=== PATIENT | male | born 1970 | race Caucasian/White ===

== ENCOUNTER → 2018-07-04 14:58 | Outpatient (CLI) | payer BC, SELFPAY ==
--- NOTE | 2018-07-04 15:04 | VDUE_ITS ---
Reason For Study: Forearm pain Right Proximal Right jugular vein is spontaneous, widely patent, phasic, with no intraluminal echogenicity noted. Right subclavian vein is spontaneous, widely patent, phasic, with no intraluminal echogenicity noted. Right Lower Arm Right radial vein is compressible. Right ulnar vein is compressible. Right Arm Right axillary vein is spontaneous, patent, phasic, competent, compressible and demonstrates augmentation. Right brachial vein is compressible. Right cephalic vein is compressible. Right basilic vein is compressible. Patient Safety Prelim to Dr. Rivera. Interpretation Summary Deep veins of the right upper extremity are patent and compressible segmentally. There is no evidence of deep vein thrombosis. The superficial veins of the right upper extremity, the basilic and cephalic veins, are patent and compressible. There is no evidence of right upper extremity superficial thrombophlebitis involving the veins imaged. Ordering Physician: Antonio Rivera Referring Physician: Debbie Tavarez M.D. Performed By: David Smith RVT and Student ?
== END ==
PROVIDERS: Family Provider Internal Medicine; PCP Internal Medicine; Referring Provider Orthopaedic Surgery; Visit Provider Orthopaedic Surgery
DX: M79.631 Pain in right forearm (principal)
CPT/HCPCS: 93971

== ENCOUNTER → 2023-01-28 | Outpatient (CLI) | payer BC, SELFPAY ==
[2023-01-28 18:13] LABS: AST(SGOT) 39 U/L (15-37); Alanine Aminotransfer ALT/SGPT 67 U/L (16-61); Albumin, Serum 3.9 g/dL (3.2-5.0); Alkaline Phosphatase 78 U/L (45-117); Anion Gap 8 (5-15); BUN 16 mg/dL (7-18); BUN/Creat Ratio 18.4 RATIO (10-20); Chloride 105 mmol/L (98-107); Cholesterol 179 mg/dL (200); Creatinine, Serum 0.87 mg/dL (0.70-1.30); EST Glomerular Filtration Rate 99 mL/min (>60); Est Glom Filt Rate - Afr Amer 120 mL/min (>60); Glucose 91 mg/dL (74-106); High Density Lipoprotein 37 mg/dL; Protein, Total 7.9 g/dL (6.4-8.2); Sodium Level 138 mmol/L (136-145); T4 Free Direct 0.85 ng/dL (0.76-1.46); Thyroid Stim Hormone (TSH) 1.98 uIU/mL (0.358-3.74); Triglycerides 102 mg/dL; Very Low Density Lipoprotein 20 mg/dL (5-40)
[2023-01-28 19:42] LABS: Hepatitis B Surface Antibody Non-Reactive; Hepatitis C Antibody Non-Reactive (Nonreactive); Vitamin B12 434 pg/mL (211-911)
== END | disposition home or self-care (01) ==
PROVIDERS: PCP Family Medicine; Referring Provider Family Medicine; Visit Provider Family Medicine
DX: E66.9 Obesity, unspecified (principal); R79.89 Other specified abnormal findings of blood chemistry; R53.83 Other fatigue
CPT/HCPCS: 36415; 80053; 80061; 82306; 82607; 84439; 84443; 86706; 86803

== ENCOUNTER → 2024-04-06 | Outpatient (CLI) | payer OTHER, SELFPAY ==
[2024-04-06 15:46] LABS: Red Blood Cells-Urine 0 SEEN /hpf (0-5); White Blood Cells 0 SEEN /hpf (0-5)
[2024-04-06 17:50] LABS: Absolute Lymphocyte Count 1.61 X10^3/uL (0.83-4.51); Absolute Neutrophil Count 2.4 X10^3/uL (2.0-7.7); Basophil# 0.04 X10^3/uL; Basophil% 0.8 % (0-1); Eosinophil# 0.11 X10^3/uL; Eosinophils% 2.2 % (0-5); Hematocrit 43.6 % (40-54); Hemoglobin 14.8 g/dL (13.0-16.5); Lymphocyte # 1.61 X10^3/ul (0.83-4.51); Lymphocyte % 32.5 % (19-41); Mean Corp Hgb Conc 33.9 g/dL (32-36); Mean Corpuscular Hgb 30.6 pg (27.0-32.0); Mean Corpuscular Volume 90.3 fL (80-94); Mean Platelet Vol. 9.9 fl (6.2-12.0); Monocyte# 0.79 X10^3/uL; NRBC Flagged by Analyzer 0 % (0-5); Neutrophil # 2.39 X10^3/uL (2.7-7.7); Neutrophil % 48.3 % (47-70); Platelet Count 271 K/mm3 (150-450); RBC Distribution Width CV 12.7 % (11.6-14.6); RBC Distribution Width SD 41.9 fl (35.1-43.9); Red Blood Count 4.83 M/mm3 (4.6-6.2)
[2024-04-06 17:53] LABS: Color, Urine Yellow (Yellow); Glucose, Dipstick Normal (Normal); Ketone-Dipstick Negative (Negative); Leukocyte Esterase-Dipstick Negative /ul (Negative); Nitrite-Dipstick Negative (Negative); Occult Blood-Urine Negative /ul (Negative); Protein-Dipstick Negative (Negative); Urine Bilirubin Dipstick Negative (Negative); Urine Clarity Clear (Clear); Urine Urobilinogen Normal (Normal)
[2024-04-06 17:57] LABS: Vitamin D,25 Hydroxy 23.5 ng/mL
[2024-04-06 18:05] LABS: AST(SGOT) 47 U/L (15-37); Alanine Aminotransfer ALT/SGPT 79 U/L (16-61); Albumin, Serum 3.8 g/dL (3.2-5.0); Alkaline Phosphatase 58 U/L (45-117); Anion Gap 5 (5-15); BUN 16 mg/dL (7-18); BUN/Creat Ratio 16.8 RATIO (10-20); Calcium,Total 9.2 mg/dL (8.5-10.1); Chloride 107 mmol/L (98-107); Cholesterol 182 mg/dL (200); Creatinine, Serum 0.95 mg/dL (0.70-1.30); EST Glomerular Filtration Rate 88 mL/min (>60); Est Glom Filt Rate - Afr Amer 107 mL/min (>60); Globulin 3.8 g/dL (2.2-4.2); Glucose 99 mg/dL (74-106); High Density Lipoprotein 37 mg/dL; Magnesium 2.3 mg/dL (1.6-2.6); Potassium 3.9 mmol/L (3.5-5.1); Protein, Total 7.6 g/dL (6.4-8.2); Sodium Level 137 mmol/L (136-145); Triglycerides 111 mg/dL; Very Low Density Lipoprotein 22 mg/dL (5-40)
[2024-04-06 18:09] LABS: Bacteria 1+ /hpf (None Seen); Mucous, Urine 2+ /hpf (<or=2+); Squamous Epithelial Cells - UA 0-5 SEEN /hpf (0-5)
== END | disposition home or self-care (01) ==
PROVIDERS: PCP Family Medicine; Visit Provider Family Medicine
DX: K76.0 Fatty (change of) liver, not elsewhere classified (principal); E55.9 Vitamin D deficiency, unspecified
CPT/HCPCS: 36415; 80053; 80061; 81001; 82306; 83735; 85025

== ENCOUNTER 2024-07-09 05:27 | Day surgery (SDC) | payer OTHER, SELFPAY ==
[2024-07-09] VITALS (7 sets, daily range): BP systolic 98–122; BP diastolic 65–84; PULSE 66–96; RESP 16–18; TEMP 36.5–37; O2SAT 16–98; BMI 38.5
--- OUTSIDE RECORDS SUMMARY | 2024-07-09 05:30 | XMS RPT_ITS | CCD ---
Author Organization [facility] Care Team Providers Care Bmw Sales Consultant Name Role Phone Debbie Pack Unavailable Communications Equipment Operator, System Unavailable Unavailable MessengerKenia Unavailable Unavailable Andriy, Jacquie Unavailable Unavailable Unavailable Unavailable Debbie Pack DO Primary Care Provider Debbie Pack DO Primary Care Provider Debbie Pack DO Communications Equipment Operator, System Unavailable Unavailable Messenger Kenia MARIN Unavailable Unavailable Jacquie Ashraf Unavailable Unavailable Unavailable Unavailable Debbie Pack DO Primary Care Provider Debbie Pack DO Primary Care Provider DEBBIE PACK Primary Care Unavailab CARYN Nazario Referring Unavailable DEBBIE PACK Primary Care Unavailab le DEBBIE PACK Primary Care Unavailab le DEBBIE PACK Primary Care Unavailab le Medications Current Medications Medication Drug Class(es) Dates Sig (Normalized) Sig (Original) acyclovir 400 mg oral tablet (7 sources) Herpesvirus Nucleoside Analog DNA Polymerase Inhibitor, Herpes Simplex Virus Nucleoside Analog DNA Polymerase Inhibitor, Herpes Zoster Virus Nucleoside Analog DNA Polymerase Inhibitor Start: 10-06-2020 take 1 tablet by mouth three times daily acyclovir (ZOVIRAX) 400 mg tablet Indications: Recurrent cold sores Take 1 tablet by mouth three times daily. 21 tablet 5 10/06/2020 Active Comment on above: Take 1 tablet by laura th three times daily. mupirocin 0.02 mg/mg topical ointment (7 sources) RNA Synthetase Inhibitor Antibacterial Start: 11-04-2019 mupirocin (BACTROBAN) 2 % ointment Indications: Finger swelling Apply 1 application to affected area three times daily. 30 g 11/04/2019 Active Comment on above: Apply 1 application to affected area three times daily. Problems Active Problems Problem Classification Problem Date Documented Da te Episodic/Chronic Abdominal pain (4 sources) Acute abdominal pain; Translations: [Abdominal pain, acute, right upper quadrant] Resolved: 04-08-2014 07-21-2015 Episodic Disorders of lipid metabolism (5 sources) Hypertriglyceridemi a; Translations: [Hyperglyceridemia] 07-22-2015 Chronic Other injuries and conditions due to external causes (2 sources) Thumb injury ; Translations: [Unspecified injury of right wrist, hand and finger(s), initial encounter] Episodic Other injuries and conditions due to external causes (2 sources) Injury of right foot; Translations: [Unspecified injury of right foot, initial encounter] 02-25-2024 Episodic Other liver diseases (8 sources) Fatty liver; Translations: [Steatosis of liver] Chronic Other liver diseases (2 sources) Steatosis of liver; Translations: [Fatty liver] 07-22-2015 Chronic Other nutritional; endocrine; and metabolic disorders (4 sources) Cholesterol level - finding; Translations: [Low HDL (under 40)] 07-21-2015 Chronic Comment on above: increase exercise Other nutritional; endocrine; and metabolic disorders (3 sources) Weight gain; Translations: [Weight gain] 04-08-2014 Episodic Other screening for suspected conditions (not mental disorders or infectious disease) (12 sources) Liver function tests abnormal; Translations: [Thyroid hormone tests abnormal] Resolved: 04-08-2014 06-11-2015 Episodic Residual codes; unclassified (2 sources) Family history of diabetes mellitus; Translations: [Family history of diabetes mellitus] Episodic Residual codes; unclassified (2 sources) FH: Diabetes mellitus; Translations: [Family history of diabetes mellitus] 04-08-2014 Episodic Unclassified (3 sources) Elevated LFT (790.6) Unclassified (14 sources) Unclassified (1 source) SCREENING FOR CANCER OF THE PROSTATE (V76.44) Past or Other Problems Problem Classification Problem Date Documented Date Episodic/Chronic Calculus of urinary tract (7 sources) Kidney stone; Translations: [Calculus of kidney] Onset: 7 04-18-2007 Episodic Contraceptive and procreative management (7 sources) Patient encounter status; Translations: [Encounter for sterilization] Onset: 7 09-04-2007 Episodic Other injuries and conditions due to external causes (1 source) Unspecified injury of right foot, initial encounter; Translations: [Injury of right foot, initial encounter] Onset: 4 Episodic Other lower respiratory disease (7 sources) Hemoptysis; Translations: [Hemoptysis] Onset: 8 10-28-2007 Episodic Unclassified (3 sources) Hypertriglycerides (272.1) Unclassified (3 sources) Abnormal TSH (794.5) Unclassified (2 sources) Low HDL (272.5) Unclassified (1 source) Screening status; Translations: [Screening for prostate cancer] 06-10-2015 Unclassified (1 source) Weight gain (783.1) Unclassified (2 sources) Abdominal Pain,RUQ(789.01) Results Test Name Value Interpretation Reference Range Facility [facility] 02-25-2024 CNOV Office Visit (UCWSTR ) ESDRAS GRANGER ([id number]) 1970 M Date Time Provider Department 02/25/24 9:30 AM CARYN GAVIRIA [facility] During your visit today, we recorded the following information about you: Temperature Pulse Respiration Blood pressure 97.6 degrees 71/minute 20/minute 144/84 Weight 127 kg Caryn Gaviria APRN.CHRISTMAS TREE GRADER 02/25/2024 10:43 AM Signed Subjective HPI Nontoxic-appearing male presents urgent care chief complaint right heel pain. Duration of symptoms 1 day. Associated symptoms right heel pain. Patient states stepped out of his truck in his rubber boots when he slipped off the step striking his heel in the gravel. Feels like his stone struck him squarely on the right heel. Presents today with persistent pain. States it is hard to bear weight due to discomfort. Denies any other injuries. No numbness no tingling. No decrease sensation. No fractures or surgeries in the past. Past medical history prescription medications allergies reviewed. .Patient presents with: Pain (foot): R heel, slipped and landed on heel, unable to bear weight without pain x 1 day PAST MEDICAL HISTORY Diagnosis Date Recurrent cold sores Renal calculi PAST SURGICAL HISTORY Procedure Laterality Date APPENDECTOMY 1985 F ESWL UNILATERAL 2008 Rt kidney stone LAPAROSCOPY SURG CHOLECYSTECTOMY 09/06/2012 Cholecystectomy, lap LASIK 2000 [facility] ALLERGIES Patient has no known allergies. MEDICATIONS acyclovir (ZOVIRAX) 400 mg tablet Take 1 tablet by mouth three times daily. (Patient not taking: Reported on 04/21/2022) mupirocin (BACTROBAN) 2 % ointment Apply 1 application to affected area three times daily. (Patient not taking: Reported on 04/21/2022) FAMILY HISTORY Problem Relation Age of Onset Heart Paternal Grandfather Diabetes Paternal Grandfather Social History Tobacco Use Smoking status: Never Smokeless tobacco: Never Substance Use Topics Alcohol use: No Drug use: No BP 144/84 Pulse 71 Temp 36.4 ?C (97.6 ?F) Resp 20 Wt 127 kg (279 lb 15.8 oz) SpO2 98% Review of Systems Constitutional: Negative for chills, fever and malaise/fatigue. HENT: Negative for congestion, ear discharge, ear pain, sinus pain and sore throat. Eyes: Negative for blurred vision, pain, discharge and redness. Respiratory: Negative for cough, hemoptysis, sputum production, shortness of breath, wheezing and stridor. Cardiovascular: Negative for chest pain. Gastrointestinal: Negative for abdominal pain, diarrhea, nausea and vomiting. Musculoskeletal: Positive for falls. Negative for back pain, joint pain, myalgias and neck pain. Right heel pain Skin: Negative for itching and rash. Neurological: Negative for dizziness and headaches. Objective Physical Exam Constitutional: General: He is not in acute distress. Appearance: He is not toxic-appearing. HENT: Head: Normocephalic. Nose: Nose normal. Eyes: Pupils: Pupils are equal, round, and reactive to light. Cardiovascular: Rate and Rhythm: Normal rate. Pulmonary: Effort: Pulmonary effort is normal. No respiratory distress. Musculoskeletal: Cervical back: Normal range of motion. Right ankle: No swelling, deformity or ecchymosis. Normal range of motion. Anterior drawer test negative. Normal pulse. Right Achilles Tendon: No tenderness. Right foot: Normal range of motion and normal capillary refill. No swelling, deformity, tenderness or bony tenderness. Feet: Comments: Pain with palpation highlighted area. No breaks in skin. Skin: General: Skin is warm and dry. Neurological: General: No focal deficit present. Mental Status: He is alert. ASSESSMENT/PLAN: 1. Injury of right foot, initial encounter - ICD9: 959.7, ICD10: S99.921A - XR FOOT GENERAL 3V AP/LAT/OBL RIGHT IMPRESSION: Moderate soft tissue swelling over the foot. No fractures are identified No fractures noted on x-ray. Treat as contusion. Follow-up 5 to 7 days symptoms or not improving. Patient was educated on supportive therapies. Patient will follow up with primary care provider as needed. Patient was instructed to immediately proceed to emergency room for any new, worsening, or symptoms lasting longer than anticipated. The patient's clinical presentation is otherwise unremarkable at this time. Based on exam and clinical finding, the patient is stable for discharge. Plan of care was discussed with patient. Patient verbalizes understanding and agrees to plan of care. This note was generated using [employer] software. It may contain errors in wording, punctuation, or spelling. Caryn Gaviria APRN.[employer] T[employer] GRADER Allergies As of Date: 02/25/2024 (No Known Allergies) Date Reviewed: 02/25/2024 Reviewed by: Caryn Gaviria APRN.CHRI[employer] TREE GRADER - Fully Assessed Reason for Visit: Pain (foot) [760] Cmt: R heel, slipped and landed on heel, unable to bear weight (more content not included)... Normal [facility] XR FOOT 3V AP/LAT/OBL RTon 0 02-25-2024 XR FOOT 3V AP/LAT/OBL RT * * *Final Report* * * DATE OF EXAM: Feb 25 2024 9:57AM WOX 5337 - XR FOOT 3V AP/LAT/OBL RT / PROCEDURE REASON: Injury of right foot, initial encounter * * * * Physician Interpretation * * * * EXAM(s): XR FOOT 3V AP/LAT/OBL RT..... HISTORY: 53 years old Clinical information: Injury of right foot, initial encounter Plantar right heel pain after falling out of a truck yesterday TECHNIQUE: Images: XR FOOT 3V AP/LAT/OBL RT Comparison: 04/08/2019. RESULT: Findings: No fractures or dislocations are seen. Small anterior heel spur. Moderate soft tissue swelling over the foot IMPRESSION: Moderate soft tissue swelling over the foot. No fractures are identified Friction Welding Machine Operator: VANESA Transcribe Date/Time: Feb 25 2024 10:03A Dictated by : VICENTE HUMPHRIES DO This examination was interpreted and the report reviewed and electronically signed by: VICENTE HUMPHRIES DO on Feb 25 2024 10:05AM EST [id number] Normal [facility] XR Foot - right AP and Later al and obliqueon 02-25-2024 IMPRESSION: Moderate soft tissue swelling over the foot. No fractures are identified Friction Welding Machine Operator: VANESA Transcribe Date/Time: Feb 25 2024 10:03A Dictated by : VICENTE HUMPHRIES DO This examination was interpreted and the report reviewed and electronically signed by: VICENTE HUMPHRIES DO on Feb 25 2024 10:05AM EST DIVISION OF RADIOLOGY * * *Final Report* * * DATE OF EXAM: Feb 25 2024 9:57AM WOX 5337 - XR FOOT 3V AP/LAT/OBL RT / PROCEDURE REASON: Injury of right foot, initial encounter * * * * Physician Interpretation * * * * EXAM(s): XR FOOT 3V AP/LAT/OBL RT..... HISTORY: 53 years old Clinical information: Injury of right foot, initial encounter Plantar right heel pain after falling out of a truck yesterday TECHNIQUE: Images: XR FOOT 3V AP/LAT/OBL RT Comparison: 04/08/2019. RESULT: Findings: No fractures or dislocations are seen. Small anterior heel spur. Moderate soft tissue swelling over the foot DIVISION OF RADIOLOGY [facility] * * *Final Report* * * DATE OF EXAM: Feb 25 2024 9:57AM WOX 5337 - XR FOOT 3V AP/LAT/OBL RT / PROCEDURE REASON: Injury of right foot, initial encounter * * * * Physician Interpretation * * * * EXAM(s): XR FOOT 3V AP/LAT/OBL RT..... HISTORY: 53 years old Clinical information: Injury of right foot, initial encounter Plantar right heel pain after falling out of a truck yesterday TECHNIQUE: Images: XR FOOT 3V AP/LAT/OBL RT Comparison: 04/08/2019. RESULT: Findings: No fractures or dislocations are seen. Small anterior heel spur. Moderate soft tissue swelling over the foot IMPRESSION IMPRESSION: Moderate soft tissue swelling over the foot. No fractures are identified Friction Welding Machine Operator[facility] Transcribe Date/Time: Feb 25 2024 10:03A Dictated by : VICENTE HUMPHRIES DO This examination was interpreted and the report reviewed and electronically signed by: VICENTE HUMPHRIES DO on Feb 25 2024 10:05AM EST [facility] Radiology Study observation (narrative) [facility] XR Foot - right AP and Later al and obliqueOrdered By: Ccf Provider on 02-25-2024 [facility] XR DIGIT GENERAL 3V FRONTAL/ LAT/OBL RIGHTon 04-21-2022 [facility] XR Finger - right AP and Lat eral and obliqueon 04-21-2022 IMPRESSION: No acute fracture or dislocation. Friction Welding Machine Operator: VANESA Transcribe Date/Time: Apr 21 2022 8:07P Dictated by : BOB CONTE MD This examination was interpreted and the report reviewed and electronically signed by: BOB CONTE MD on Apr 21 2022 8:10PM [facility] DIVISION OF RADIOLOGY * * *Final Report* * * DATE OF EXAM: Apr 21 2022 8:02PM WOX 5319 - XR DIGIT 3V FRONTAL/LAT/OBL RT / PROCEDURE REASON: Injury of right thumb, initial encounter * * * * Physician Interpretation * * * * RIGHT THUMB X-RAY SERIES HISTORY: Pain and swelling COMPARISON: 11/04/2019. TECHNIQUE: PA, lateral and oblique views. RESULT: No fracture, dislocation or destructive changes. Mild degenerative changes of the interphalangeal joint. DIVISION OF RADIOLOGY Provider, [facility] - 04/21/2022 * * *Final Report* * * DATE OF EXAM: Apr 21 2022 8:02PM WOX 5319 - XR DIGIT 3V FRONTAL/LAT/OBL RT / PROCEDURE REASON: Injury of right thumb, initial encounter * * * * Physician Interpretation * * * * RIGHT THUMB X-RAY SERIES HISTORY: Pain and swelling COMPARISON: 11/04/2019. TECHNIQUE: PA, lateral and oblique views. RESULT: No fracture, dislocation or destructive changes. Mild degenerative changes of the interphalangeal joint. IMPRESSION IMPRESSION: No acute fracture or dislocation. Friction Welding Machine Operator: VANESA Transcribe Date/Time: Apr 21 2022 8:07P Dictated by : BOB CONTE MD This examination was interpreted and the report reviewed and electronically signed by: BOB CONTE MD on Apr 21 2022 8:10PM EST [facility] Radiology Study observation (narrative) [facility] XR Finger - right AP and Lat eral and obliqueOrdered By: Ccf Provider on 04-21-2022 [facility] ic [id number] (821 [id number])Ordered By: Unit Leader on 04-08-2014 AFP.tumor marker [Mass/Vol] 4.6 ng/mL Normal 0.0-8.3 [facility] Work Phone: Comment on above: Mishel ECLIA methodol ogy PATIENT NOT FASTINGP ERFORMED BY: [employer] [place] [id number] PSA (PROSTATE SPECIFIC ANTIG EN) (V76.44)Ordered By: Unit Leader on 04-08-2014 Prostate specific Ag [Mass/Vol] 0.1 ng/mL Normal 0.0-4.0 [facility] Work Phone: Comment on above: Mishel ECLIA methodol ogy. .According to the [place] [employer], Serum PSA shoulddecrease and remain at undetectable levels after radicalprostatectomy. The AUA defines biochemical recurrence as an initialPSA value 0.2 ng/mL or greater followed by a subsequent confirmatoryPSA value 0.2 ng/mL or greater.Values obtained with different assay methods or kits cannot be usedinterchangeably. Results cannot be interpreted as absolute evidenceof the presence or absence of malignant disease. PATIENT NOT FASTINGP ERFORMED BY: Voovio aka [employer] [address] [place] [id number] PT (Prothrobim Time) ([id number]) Ordered By: Unit Leader on 04-08-2014 INR Coag (PPP) [Relative time] 1.0 {INR} Normal 0.8-1.2 [facility] Work Phone: Comment on above: Reference interval i s for non-anticoagulated patients. . Suggested INR therapeutic range for Vitamin K antagonist therapy: Standard Dose (moderate intensity therapeutic range): 2.0 - 3.0 Higher intensity therapeutic range 2.5 - 3.5 PATIENT NOT FASTINGP ERFORMED BY: [address] [id number] Information: [id number] PT Coag (PPP) [Time] 10.2 {sec} Normal 9.1-12.0 [facility] Work Phone: Comment on above: PATIENT NOT FASTINGP ERFORMED BY: [place] [id number] [facility] [id number] Information: [id number] PT Coag (PPP) [Time] 10.2 s Normal 9.1-12.0 [facility]; [facility] Work Phone: Comment on above: PATIENT NOT FASTINGP ERFORMED BY: [place] [id number] [facility] [id number] Information: [id number] PTT (Activated Partial Throm boplastin Time) (59519)Ordered By: Unit Leader on 04-08-2014 aPTT Coag (PPP) [Time] 26 {sec} Normal 24-33 [facility] Work Phone: Comment on above: This test has not be en validated for monitoring unfractionated heparintherapy. aPTT-based therapeutic ranges for unfractionated heparintherapy have not been established. For general guidelines onHeparin monitoring, refer to the [facility] Directory of Services. PATIENT NOT FASTINGP ERFORMED BY: [place] [id number] [facility] [id number] aPTT Coag (PPP) [Time] 26 s Normal 24-33 [facility]; [facility] Work Phone: Comment on above: This test has not be en validated for monitoring unfractionated heparintherapy. aPTT-based therapeutic ranges for unfractionated heparintherapy have not been established. For general guidelines onHeparin monitoring, refer to the [facility] Directory of Services. PATIENT NOT FASTINGP ERFORMED BY: [facility]6[address] [facility] [id number] CBC WITH MANUAL DIFF ([id number]) Ordered By: Unit Leader on 06-22-2012 Basophils (Bld) [#/Vol] 0.0 {x10E3/uL} Normal 0.0-0.2 [facility] Work Phone: Comment on above: PATIENT WAS FASTINGP ERFORMED BY: [address] [id number] Information: [id number] Basophils (Bld) [#/Vol] 0.0 10*3/uL Normal 0.0-0.2 [facility]; [facility] Work Phone: Comment on above: PATIENT WAS FASTINGP ERFORMED BY: [facility] [facility] [id number] Information: [id number] Basophils/100 WBC (Bld) 1 % Normal 0-3 [facility] Work Phone: Comment on above: PATIENT WAS FASTINGP ERFORMED BY: [address] [id number] Information: [id number] Eosinophils (Bld) [#/Vol] 0.1 {x10E3/uL} Normal 0.0-0.4 [facility] Work Phone: Comment on above: PATIENT WAS FASTINGP ERFORMED BY: [address] [id number] Information: [id number] Eosinophils (Bld) [#/Vol] 0.1 10*3/uL Normal 0.0-0.4 [facility]; [facility] Work Phone: Comment on above: PATIENT WAS FASTINGP ERFORMED BY: [address] RoadDublin [place] [id number] Information: [id number] Eosinophils/100 WBC (Bld) 2 % Normal 0-7 [facility] Work Phone: Comment on above: PATIENT WAS FASTINGP ERFORMED BY: [address] [id number] Information: [id number] Erythrocyte distribution width (RBC) [Ratio] 13.2 % Normal 12.3-15.4 [facility] Work Phone: Comment on above: PATIENT WAS FASTINGP ERFORMED BY: [address] [id number] Information: [id number] Hematocrit (Bld) [Volume fraction] 46.9 % Normal 37.5-51.0 [facility] Work Phone: Comment on above: PATIENT WAS FASTINGP ERFORMED BY: [address] [id number] Information: [id number] Hemoglobin (Bld) [Mass/Vol] 16.0 g/dL Normal 12.6-17.7 [facility] Work Phone: Comment on above: PATIENT WAS FASTINGP ERFORMED BY: [place] [id number] [facility] [id number] Information: [id number] Immature granulocytes (Bld) [#/Vol] 0.0 {x10E3/uL} Normal 0.0-0.1 [facility] Work Phone: Comment on above: PATIENT WAS FASTINGP ERFORMED BY: [place] [id number] [facility] [id number] Information: [id number] Immature granulocytes (Bld) [#/Vol] 0.0 10*3/uL Normal 0.0-0.1 [facility]; [facility] Work Phone: Comment on above: PATIENT WAS FASTINGP ERFORMED BY: [place] [id number] [facility] [id number] Information: [id number] Immature granulocytes/100 WBC (Bld) 0 % Normal 0-2 [facility] Work Phone: Comment on above: PATIENT WAS FASTINGP ERFORMED BY: [address] [id number] Information: [id number] Lymphocytes (Bld) [#/Vol] 1.5 {x10E3/uL} Normal 0.7-4.5 [facility] Work Phone: Comment on above: PATIENT WAS FASTINGP ERFORMED BY: [address] [id number] Information: [id number] Lymphocytes (Bld) [#/Vol] 1.5 10*3/uL Normal 0.7-4.5 [facility]; [facility] Work Phone: Comment on above: PATIENT WAS FASTINGP ERFORMED BY: RISHABH [place] [id number] [facility] [id number] Information: [id number] Lymphocytes/100 WBC (Bld) 29 % Normal 14-46 [facility] Work Phone: Comment on above: PATIENT WAS FASTINGP ERFORMED BY: [address] [id number] Information: [id number] MCH (RBC) [Entitic mass] 30.0 pg Normal 26.6-33.0 [facility] Work Phone: Comment on above: PATIENT WAS FASTINGP ERFORMED BY: [address] [id number] Information: [id number] MCHC (RBC) [Mass/Vol] 34.1 g/dL Normal 31.5-35.7 [facility] Work Phone: Comment on above: PATIENT WAS FASTINGP ERFORMED BY: [facility]6[address] [facility] [id number] Information: [id number] MCV (RBC) [Entitic vol] 88 fL Normal 79-97 [facility] Work Phone: Comment on above: PATIENT WAS FASTINGP ERFORMED BY: ChanAshley [place] [id number] [facility] [id number] Information: [id number] Monocytes (Bld) [#/Vol] 0.5 {x10E3/uL} Normal 0.1-1.0 [facility] Work Phone: Comment on above: PATIENT WAS FASTINGP ERFORMED BY: [address] [id number] Information: [id number] Monocytes (Bld) [#/Vol] 0.5 10*3/uL Normal 0.1-1.0 [facility]; [facility] Work Phone: Comment on above: PATIENT WAS FASTINGP ERFORMED BY: [facility]H [facility] Dwatzs0574 [facility] [id number] Information: [id number] Monocytes/100 WBC (Bld) 10 % Normal 4-13 [facility] Work Phone: Comment on above: PATIENT WAS FASTINGP ERFORMED BY: [place] [id number] [facility] [id number] Information: [id number] Neutrophils (Bld) [#/Vol] 3.0 {x10E3/uL} Normal 1.8-7.8 [facility] Work Phone: Comment on above: PATIENT WAS FASTINGP ERFORMED BY: [place] [id number] [facility] [id number] Information: [id number] Neutrophils (Bld) [#/Vol] 3.0 10*3/uL Normal 1.8-7.8 [facility]; [facility] Work Phone: Comment on above: PATIENT WAS FASTINGP ERFORMED BY: RISHABH LabComadelaine SharifRizchb4704 [facility] [id number] Information: [id number] Neutrophils/100 WBC (Bld) 58 % Normal 40-74 [facility] Work Phone: Comment on above: PATIENT WAS FASTINGP ERFORMED BY: RISHABH LabCo Ivjbmr0247 [facility] [id number] Information: [id number] Platelets (Bld) [#/Vol] 271 {x10E3/uL} Normal 140-415 [facility] Work Phone: Comment on above: PATIENT WAS FASTINGP ERFORMED BY: RISHABH [facility] Nipcjy5003 [facility] [id number] Information: [id number] Platelets (Bld) [#/Vol] 271 10*3/uL Normal 140-415 [facility]; [facility] Work Phone: Comment on above: PATIENT WAS FASTINGP ERFORMED BY: RISHABH ChanCo Fxefiw8066 [facility] [id number] Information: [id number] RBC (Bld) [#/Vol] 5.33 {x10E6/uL} Normal 4.14-5.80 [facility] Internal Medicine Work Phone: Comment on above: PATIENT WAS FASTINGP ERFORMED BY: RISHABH Lab[facility] Fcgizk6351 [facility] [id number] Information: [id number] RBC (Bld) [#/Vol] 5.33 10*6/uL Normal 4.14-5.80 [facility] Internal Medicine; [facility] Work Phone: Comment on above: PATIENT WAS FASTINGP ERFORMED BY: RISHABH [facility] Kwurrf5025 [facility] [id number] Information: [id number] WBC (Bld) [#/Vol] 5.1 {x10E3/uL} Normal 4.0-10.5 [facility] Internal Medicine Work Phone: Comment on above: PATIENT WAS FASTINGP ERFORMED BY: RISHABH ChanMoi ShairfGlwler7642 [address] [facility] [place] [id number] Information: [id number] WBC (Bld) [#/Vol] 5.1 10*3/uL Normal 4.0-10.5 [facility] Internal Medicine; [facility] Internal Medicine Work Phone: Comment on above: PATIENT WAS FASTINGP ERFORMED BY: RISHABH LabComadelaine SharifWsgpyo8454 [address] [facility] [place] [id number] Information: [id number] Hemoglobin Glyclated (HGB A1 C) ([id number])Ordered By: Unit Leader on 06-22-2012 HbA1c (Bld) [Mass fraction] 5.1 % Normal 4.8-5.6 [facility] Internal Medicine Work Phone: Comment on above: . Increased risk for diabetes: 5.7 - 6.4 Diabetes: >6.4 Glycemic control for adults with diabetes: <7.0 PATIENT WAS FASTINGP ERFORMED BY: RISHABH LabComadelaine SharifWowioj3243 [facility] [id number] METABOLIC PANEL, COMPREHENSI VE ([id number])Ordered By: Unit Leader on 06-22-2012 Albumin [Mass/Vol] 4.4 g/dL Normal 3.5-5.5 [facility] Internal Medicine Work Phone: Comment on above: PATIENT WAS FASTINGP ERFORMED BY: RISHABH LabComadelaine Wxifzq8732 [address] [facility] [id number] Albumin/Globulin [Mass ratio] 1.6 {ratio} Normal 1.1-2.5 [facility] Internal Medicine Work Phone: Comment on above: PATIENT WAS FASTINGP ERFORMED BY: RISHABH [facility] Gxtrlz5875 [address] [facility] [id number] ALP [Catalytic activity/Vol] 62 [iU]/L Normal 25-150 [facility] Internal Medicine Work Phone: Comment on above: PATIENT WAS FASTINGP ERFORMED BY: RISHABH LabComadelaine Itbsfl6523 [facility] [id number] ALP [Catalytic activity/Vol] 62 U/L Normal 25-150 [facility]; [facility] Work Phone: Comment on above: PATIENT WAS FASTINGP ERFORMED BY: RISHABH [facility] [id number] ALT [Catalytic activity/Vol] 60 [iU]/L Abnormal 0-55 [facility] Work Phone: Comment on above: Effective July 03, 2012 the reference interval for ALT (SGPT) will be changing to: Male Female 0 - 11 years 0 - 29 0 - 28 12 - 17 years 0 - 30 0 - 24 > 17 years 0 - 44 0 - 32 PATIENT WAS FASTINGP ERFORMED BY: RISHABH [facility] Kxgpsw5027 [facility] [id number] ALT [Catalytic activity/Vol] 60 U/L Abnormal 0-55 [facility]; [facility] Work Phone: Comment on above: Effective July 03, 2012 the reference interval for ALT (SGPT) will be changing to: Male Female 0 - 11 years 0 - 29 0 - 28 12 - 17 years 0 - 30 0 - 24 > 17 years 0 - 44 0 - 32 PATIENT WAS FASTINGP ERFORMED BY: RISHABH Shariflin6370 [facility] [id number] AST [Catalytic activity/Vol] 28 [iU]/L Normal 0-40 [facility] Work Phone: Comment on above: PATIENT WAS FASTINGP ERFORMED BY: RISHABH [facility] [id number] AST [Catalytic activity/Vol] 28 U/L Normal 0-40 [facility]; [facility] Work Phone: Comment on above: PATIENT WAS FASTINGP ERFORMED BY: RISHABH [facility] [id number] Bilirubin [Mass/Vol] 0.6 mg/dL Normal 0.0-1.2 [facility] Work Phone: Comment on above: PATIENT WAS FASTINGP ERFORMED BY: CB [facility] Dricpl7034 [address] RoadDublin [place] [id number] Calcium [Mass/Vol] 9.1 mg/dL Normal 8.7-10.2 [facility] Internal Medicine Work Phone: Comment on above: PATIENT WAS FASTINGP ERFORMED BY: CB [facility] Ptcoir3477 [address] RoadDublin [place] [id number] Chloride [Moles/Vol] 102 mmol/L Normal 97-108 [facility] Internal Medicine Work Phone: Comment on above: PATIENT WAS FASTINGP ERFORMED BY: CB [facility] Vwtntr7219 [address] RoadDublin [place] [id number] CO2 [Moles/Vol] 23 mmol/L Normal 20-32 [facility] Internal Medicine Work Phone: Comment on above: PATIENT WAS FASTINGP ERFORMED BY: CB [facility] Mslcmv7923 [address] RoadDublin [place] [id number] Creatinine [Mass/Vol] 0.91 mg/dL Normal 0.76-1.27 [facility] Internal Medicine Work Phone: Comment on above: PATIENT WAS FASTINGP ERFORMED BY: CB [facility] Hiwnsi1968 [address] RoadDublin [place] [id number] GFR/1.73 sq M predicted among blacks CKD-EPI (S/P/Bld) [Vol rate/Area] 122 mL/min/1.73 Normal [facility] Work Phone: Comment on above: PATIENT WAS FASTINGP ERFORMED BY: CB [facility] Hacoen0805 [address] RoadDublin [place] [id number] GFR/1.73 sq M predicted among non-blacks CKD-EPI (S/P/Bld) [Vol rate/Area] 106 mL/min/1.73 Normal [facility] Work Phone: Comment on above: PATIENT WAS FASTINGP ERFORMED BY: CB [facility] Fyzdhh1937 [address] RoadDublin [place] [id number] Globulin (S) [Mass/Vol] 2.8 g/dL Normal 1.5-4.5 [facility] Work Phone: Comment on above: PATIENT WAS FASTINGP ERFORMED BY: RISHABH [facility] Qjizpv0181 [address] [facility] [id number] Glucose [Mass/Vol] 100 mg/dL Abnormal 65-99 [facility] Internal Medicine Work Phone: Comment on above: PATIENT WAS FASTINGP ERFORMED BY: RISHABH LabComadelaine SharifTxnyeb6121 [address] [facility] [id number] Potassium [Moles/Vol] 4.3 mmol/L Normal 3.5-5.2 [facility] Internal Medicine Work Phone: Comment on above: PATIENT WAS FASTINGP ERFORMED BY: RISHABH LabComadelaine SharifEtdche5132 [facility] [id number] Protein [Mass/Vol] 7.2 g/dL Normal 6.0-8.5 [facility] Internal Medicine Work Phone: Comment on above: PATIENT WAS FASTINGP ERFORMED BY: RISHABH LabMoi SharifCqajgz8541 [facility] [id number] Sodium [Moles/Vol] 139 mmol/L Normal 134-144 [facility] Internal Medicine Work Phone: Comment on above: PATIENT WAS FASTINGP ERFORMED BY: RISHABH LabMoi SharifFwiseb8547 [facility] [id number] Urea nitrogen [Mass/Vol] 12 mg/dL Normal 6-20 [facility] Work Phone: Comment on above: PATIENT WAS FASTINGP ERFORMED BY: RISHABH LabComadelaine Ettaxr5465 [facility] [id number] Urea nitrogen/Creatinin e [Mass ratio] 13 mg/mg Normal 8-19 [facility] Work Phone: Comment on above: PATIENT WAS FASTINGP ERFORMED BY: RISHABH [facility] Xulfpj4376 [address] [facility] [id number] SED RATE ERYTHROCYTE ([id number]) Ordered By: Unit Leader on 06-22-2012 ESR (Bld) [Velocity] 3 mm/h Normal 0-15 [facility] Work Phone: Comment on above: PATIENT WAS FASTINGP ERFORMED BY: [facility] Ndtqsg8491 [facility] [id number] TSH ([id number])Ordered By: Raymond james Communications Equipment Operator on 06-22-2012 TSH Qn 1.350 {uIU/mL} Normal 0.450-4.500 Regino haque Internal Medicine Work Phone: Comment on above: PATIENT WAS FASTINGP ERFORMED BY: [facility] Ltxwxb9392 [facility] [id number] Vital Signs Date Time Vital Sign Value Performing Clinician Facility 02-25-2024 09:38-0400 Body temperature 97.59 [degF] Caryn Gaviria WIRELESS CONSULTANT.[employer] Work Phone: [facility] 02-25-2024 09:38-0400 Body weight 127 kg Caryn Gaviria WIRELESS CONSULTANT.[employer] Work Phone: [facility] 02-25-2024 09:38-0400 Diastolic blood pressure 84 mm[Hg] Caryn Gaviria WIRELESS CONSULTANT.[employer] Work Phone: [facility] 02-25-2024 09:38-0400 Heart rate 71 /min Caryn Gaviria WIRELESS CONSULTANT.[employer] Work Phone: [facility] 02-25-2024 09:38-0400 Respiratory rate 20 /min Caryn Gaviria WIRELESS CONSULTANT.[employer] Work Phone: [facility] 02-25-2024 09:38-0400 SaO2% (BldA) [Mass fraction] 98 % Caryn Gaviria WIRELESS CONSULTANT.[employer] Work Phone: [facility] 02-25-2024 09:38-0400 Systolic blood pressure 144 mm[Hg] Caryn Gaviria WIRELESS CONSULTANT.[employer] Work Phone: [facility] 04-21-2022 19:50-0400 Body temperature 97.7 [degF] Renea Nieto WIRELESS CONSULTANT.[employer] Work Phone: [facility] 04-21-2022 19:50-0400 Body weight 122.38 kg Renea Praisler-Wood WIRELESS CONSULTANT.[employer] Work Phone: [facility] 04-21-2022 19:50-0400 Diastolic blood pressure 82 mm[Hg] Renea Praisler-Wood WIRELESS CONSULTANT.[employer] Work Phone: [facility] 04-21-2022 19:50-0400 Heart rate 84 /min Renea Praisler-Wood WIRELESS CONSULTANT.[employer] Work Phone: [facility] 04-21-2022 19:50-0400 Respiratory rate 16 /min Renea Praanetteler-Wood WIRELESS CONSULTANT.[employer] Work Phone: [facility] 04-21-2022 19:50-0400 SaO2% (BldA) [Mass fraction] 97 % Renea Praisler-Wood WIRELESS CONSULTANT.[employer] GRADER Work Phone: [facility] 04-21-2022 19:50-0400 Systolic blood pressure 122 mm[Hg] Renea Praanetteler-Kiran WIRELESS CONSULTANT.[employer]ER Work Phone: [facility] 04-08-2014 08:33-0400 BMI (Body Mass Index) 31.94 kg/m2 Kenia Hubbard RN [facility] Work Phone: 04-08-2014 08:33-0400 Body weight 106.82 kg Kenia Hubbard RN [facility] Work Phone: 04-08-2014 08:33-0400 BP Diastolic 62 mm[Hg] Kenia Hubbard RN [facility] Work Phone: Comment on above: Patient Position: Sitting; Cuff Location : Left Arm; Cuff Size: Large 04-08-2014 08:33-0400 BP Systolic 118 mm[Hg] Keina Hubbard RN [facility] Work Phone: Comment on above: Patient Position: Sitting; Cuff Location : Left Arm; Cuff Size: Large 04-08-2014 08:33-0400 BSA (Body Surface Area) 2.28 m2 Kenia Hubbard RN [facility] Work Phone: 04-08-2014 08:33-0400 Height 182.88 cm Kenia Hubbard RN [facility] Work Phone: 04-08-2014 08:33-0400 Pulse (Heart Rate) 58 /min Kenia Hubbard RN [facility] Internal Medicine Work Phone: Comment on above: Pattern: Regular 04-08-2014 08:33-0400 Pulse Oximetry 8 % Debbie Pack [facility] Internal Medicine Work Phone: Comment on above: Room air 04-08-2014 08:33-0400 Respiratory Rate 18 /min Kenia Hubbard RN Comprehens[facility] e Internal Medicine Work Phone: Comment on above: Pattern: Unlabored 04-08-2014 08:33-0400 SaO2% (BldA) [Mass fraction] 8 % Kenia Hubbard RN [facility]; [facility] Work Phone: Comment on above: Room air 09-21-2013 09:19-0500 BMI (Body Mass Index) 31.52 kg/m2 Rola Manbebeto [facility] Internal Medicine Work Phone: 09-21-2013 09:19-0500 Body weight 105.43 kg Rola Saldana [facility] Internal Medicine Work Phone: 09-21-2013 09:19-0500 BP Diastolic 78 mm[Hg] [facility] Work Phone: Comment on above: Patient Position: Sitting; Cuff Location : Left Arm; Cuff Size: Standard 09-21-2013 09:19-0500 BP Systolic 116 mm[Hg] Rola Benderbebeto [facility] Internal Medicine Work Phone: Comment on above: Patient Position: Sitting; Cuff Location : Left Arm; Cuff Size: Standard 09-21-2013 09:19-0500 BSA (Body Surface Area) 2.27 m2 Rola Benderbebeto [facility] Internal Medicine Work Phone: 09-21-2013 09:19-0500 Height 182.88 cm Rola Saldana [facility] Internal Medicine Work Phone: 09-21-2013 09:19-0500 Pulse (Heart Rate) 84 /min Rola Manbebeto [facility] Internal Medicine Work Phone: Comment on above: Pattern: Regular 09-21-2013 09:19-0500 Pulse Oximetry 97 % Debbie Pack [facility] Work Phone: Comment on above: Room air 09-21-2013 09:19-0500 Respiratory Rate 16 /min Rola Saldana [facility] Work Phone: Comment on above: Pattern: Unlabored 09-21-2013 09:19-0500 SaO2% (BldA) [Mass fraction] 97 % Rola Saldana [facility]; [facility] Work Phone: Comment on above: Room air 06-22-2012 08:13-0400 BMI (Body Mass Index) 32.88 kg/m2 Kenia Hubbard RN [facility] Work Phone: 06-22-2012 08:13-0400 Body Temperature 98.3 [degF] Kenia Hubbard RN Comprehens[facility] Medicine Work Phone: Comment on above: Method: Oral 06-22-2012 08:13-0400 Body weight 109.97 kg Kenia Hubbard RN [facility] Work Phone: 06-22-2012 08:13-0400 BP Diastolic 78 mm[Hg] Kenia Hubbard RN [facility] Work Phone: Comment on above: Patient Position: Sitting; Cuff Location : Left Arm; Cuff Size: Large 06-22-2012 08:13-0400 BP Systolic 122 mm[Hg] Kenia Hubbard RN [facility] Work Phone: Comment on above: Patient Position: Sitting; Cuff Location : Left Arm; Cuff Size: Large 06-22-2012 08:13-0400 BSA (Body Surface Area) 2.31 m2 Kenia Hubbard RN [facility] Work Phone: 06-22-2012 08:13-0400 Height 182.88 cm Kenia Hubbard RN [facility] Work Phone: 06-22-2012 08:13-0400 Pulse (Heart Rate) 60 /min Kenia Hubbard RN [facility] Internal Medicine Work Phone: Comment on above: Pattern: Regular 06-22-2012 08:13-0400 Respiratory Rate 20 /min Kenia Hubbard RN Comprehens[facility] Internal Medicine Work Phone: Comment on above: Pattern: Unlabored 02-15-2011 17:27-0400 BMI (Body Mass Index) 31.08 kg/m2 Kenia Hubbard RN [facility] Work Phone: 02-15-2011 17:27-0400 Body weight 103.96 kg Kenia Hubbard RN [facility] Work Phone: 02-15-2011 17:27-0400 BP Diastolic 70 mm[Hg] Kenia Hubbard RN [facility] Work Phone: Comment on above: Patient Position: Sitting; Cuff Location : Left Arm; Cuff Size: Large 02-15-2011 17:27-0400 BP Systolic 122 mm[Hg] Kenia Hubbard RN [facility] Work Phone: Comment on above: Patient Position: Sitting; Cuff Location : Left Arm; Cuff Size: Large 02-15-2011 17:27-0400 BSA (Body Surface Area) 2.26 m2 Kenia Hubbard RN [facility] Work Phone: 02-15-2011 17:27-0400 Height 182.88 cm Kenia Hubbard RN [facility] Work Phone: 02-15-2011 17:27-0400 Pulse (Heart Rate) 68 /min Kenia Hubbard RN [facility] Work Phone: Comment on above: Pattern: Regular 02-15-2011 17:27-0400 Respiratory Rate 18 /min Kenia Hubbard RN [facility] Work Phone: Comment on above: Pattern: Unlabored 02-05-2011 14:01-0400 BMI (Body Mass Index) 31.48 kg/m2 Debbie Pack [facility] Work Phone: 02-05-2011 14:01-0400 Body Temperature 98 [degF] Debbie Pack [facility] Work Phone: Comment on above: Method: Oral 02-05-2011 14:01-0400 Body weight 105.28 kg Debbie Pack [facility] Work Phone: 02-05-2011 14:01-0400 BP Diastolic 76 mm[Hg] Debbie Pack [facility] Work Phone: Comment on above: Patient Position: Sitting; Cuff Location : Left Arm; Cuff Size: Standard 02-05-2011 14:01-0400 BP Systolic 124 mm[Hg] Debbie Pack [facility] Work Phone: Comment on above: Patient Position: Sitting; Cuff Location : Left Arm; Cuff Size: Standard 02-05-2011 14:01-0400 BSA (Body Surface Area) 2.27 m2 Debbie Pack [facility] Work Phone: 02-05-2011 14:01-0400 Height 182.88 cm Debbie Pack [facility] Work Phone: 02-05-2011 14:01-0400 Pulse (Heart Rate) 72 /min Debbie Pack [facility] Work Phone: Comment on above: Pattern: Regular 02-05-2011 14:01-0400 Respiratory Rate 14 /min Debbie Pack [facility] Work Phone: Comment on above: Pattern: Unlabored Encounters Encounter Date Encounter Type Care Provider Facility Start: 06-02-2024 End: 06-02-2024 ambulatory Immunization Clinic Nurse [facility] Work Phone: [facility] Start: 06-02-2024 End: 06-02-2024 Patient encounter procedure Immunization Clinic Nurse [facility] Work Phone: [facility] Start: 02-25-2024 End: 02-25-2024 Subsequent hospital visit by physician Xr [facility] Work Phone: Radiology Comment on above: Injury of right foot , initial encounter [S99.921A] Start: 02-25-2024 End: 02-25-2024 ambulatory DEBBIE KENIA PACK Facility:[facility] Start: 02-25-2024 End: 02-25-2024 Office outpatient visit 15 minutes Caryn Gaviria APRN.CNP Work Phone: [facility] Comment on above: Injury of right foot , initial encounter (Primary Dx) Start: 06-04-2023 End: 06-04-2023 ambulatory Immunization Clinic Nurse [facility] Work Phone: [facility] Start: 06-05-2022 End: 06-05-2022 ambulatory Immunization Clinic Nurse [facility] Work Phone: [facility] Start: 04-21-2022 End: 04-21-2022 Subsequent hospital visit by physician Xr [facility] Work Phone: Radiology Comment on above: Injury of right thum b, initial encounter [S69.91XA] Start: 04-21-2022 End: 04-21-2022 Patient encounter procedure Renea Nieto APRN.[employer] Work Phone: [facility] Comment on above: Injury of right thum b, initial encounter (Primary Dx) Start: 04-08-2014 End: 04-08-2014 Office outpatient visit 25 minutes Debbie Pack [facility] Internal Medicine Start: 09-21-2013 End: 09-21-2013 Patient encounter procedure Debbie Pack [facility] Start: 06-22-2012 End: 06-22-2012 Phone Encounter Debbie Pack [facility] Director Of Partnerships al Medicine Start: 06-22-2012 End: 06-22-2012 Patient encounter procedure Debbie Pack [facility] Start: 02-15-2011 End: 02-15-2011 Patient encounter procedure Debbie Pack [facility] Internal [facility] Start: 02-05-2011 End: 02-05-2011 Patient encounter procedure Debbie Pack [facility] Internal Medicine Procedures Date Procedure Procedure Detail Performing Clinician Start: 02-25-2024 Radex foot complete minimum 3 views Caryn Gaviria WIRELESS CONSULTANT.[employer] Work Phone: Start: 06-04-2023 INFLUENZA VACCINE, A GE 6 MO - 64 YR, QUADRIVALENT (AFLURIA, FLULAVAL, FLUZONE) Lauro Sullivan MD Work Phone: Start: 10-03-2022 End: 10-04-2022 Office Visit Report Procedure Note: See Note; NOTES: [place] [id number] [place] [address] OFFICE VISIT Date of Service: 10/01/22 MR#: [id number] Acct: [id number] Patient: ESDRAS GRANGER Rep #: [id number] : 1970 Provider: LIO hernandez Age/Sex: 51/M Location: [facility] Status: Signed Intake Vital Signs 03/05/15 21:43 Height 5 ft 10 in Intake Visit Reasons: RANDOM DOT DRUG SCREEN/[place] Allergies No Known Allergies Allergy (Verified 03/05/15 21:44) Office Procedures [facility] Billing Sheet Testing Other DOT Drug Screen: Yes 10/04/22 0625 <Electronically signed by Camilo VACA> Date Camilo VACA Cosigner Signature: Date (if applicable) CC: Debbie Pack DO Work Phone: Start: 06-17-2022 End: 06-17-2022 Office Visit Report Procedure Note: See Note; NOTES: [facility] [place] [address] OFFICE VISIT Date of Service: 06/17/22 MR#: [id number] Acct: [id number] Patient: ESDRAS GRANGER Rep #: [id number] : 1970 Provider: LIO hernandez Age/Sex: 51/M Location: [facility] Status: Signed Intake Intake Visit Reasons: [place] DOT DRUG SCREEN/[place] DRILLING Allergies No Known Allergies Allergy (Verified 03/05/15 21:44) Office Procedures [facility] Billing Sheet Testing DOT Drug Screen: Yes 06/17/22 1746 <Electronically signed by Camilo VACA> Date Camilo Dayami Goldsmith Signature: Date (if applicable) CC: Debbie Pack DO Work Phone: Start: 06-05-2022 INFLUENZA VACCINE QUADRIVALENT 6 MO - 64 YRS IM Nik Banksrison DO Work Phone: Start: 04-21-2022 Radex fingr minimum 2 views Renea Gerson STEVENS.[employer]AD[employer] Work Phone: Start: 09-06-2012 End: 09-06-2012 Cholecystectomy Kenia Hubbard Start: 09-14-2010 Lipid 1996 panel - S natividad or Plasma Immunization [facility] Work Phone: Appendectomy Kenia Hubbard Comment on above: age 13 Plan of Treatment Date Care Activity Detail Author Start: 11-03-2029 Urine microalbumin profile [facility] Start: 03-30-2025 Diabetes Screening Diabetes Screening [facility] Start: 06-02-2024 End: 06-02-2024 Patient encounter procedure 06/02/2024 8:20 AM EDT Immunization Family Medicine [place] [address] [place], [place] [id number] [facility], Immunization Clinic Nurse [address] [place], [place] [id number] Flu shot [facility] Comment on above: Flu shot Start: 05-06-2024 Covid-19 Vaccine () Covid-19 Vaccine () [facility] Start: 05-06-2024 Covid-19 Vaccine () Covid-19 Vaccine () [facility] Start: 05-06-2024 Influenza [facility] Start: 09-05-2023 Behavioral Health Screening Behavioral Health Screening [facility] Start: 05-06-2023 Covid-19 Vaccine () Covid-19 Vaccine () [facility] Start: 2022 Shingrix Vaccine (1 of 2) Shingrix Vaccine (1 of 2) [facility] Start: 09-05-2022 Depression Assessment Depression Assessment [facility] Start: 05-06-2022 Influenza vaccination INFLUENZA (#1) [facility] Start: 10-10-2021 COVID-19 VACCINE (3 - Booster for Pfizer series) COVID-19 VACCINE (3 - Booster for Pfizer series) [facility] Start: 09-05-2021 DEPRESSION ASSESSMENT DEPRESSION ASSESSMENT [facility] Start: 07-05-2021 COVID-19 VACCINE (3 - Booster for Pfizer series) COVID-19 VACCINE (3 - Booster for Pfizer series) [facility] Start: 07-05-2021 Covid-19 Vaccine (3 - Pfizer series) Covid-19 Vaccine (3 - Pfizer series) [facility] Start: 2017 COLOGUARD (FIT-DNA) COLOGUARD (FIT-DNA) [facility] Start: 2017 Colonoscopy COLONOSCOPY [facility] Start: 2017 COLORECTAL CANCER SCREENING COLORECTAL CANCER SCREENING [facility] Start: [address] COLONOGRAPHY [facility] Start: 2017 DIABETES SCREEN DIABETES SCREEN [facility] Start: 2017 Diabetes Screening Diabetes Screening [facility] Start: 2017 FECAL OCCULT BLOOD FECAL OCCULT BLOOD [facility] Start: 2017 Screening for malignant neoplasm of colon [facility] Start: 2017 SIGMOIDOSCOPY SIGMOIDOSCOPY [facility] Start: 09-14-2015 Lipid 1996 panel - Serum or Plasma Lipid Screening [facility] Start: 09-14-2015 Lipid panel Lipid Screening [facility] Start: 09-14-2015 LIPID SCREEN LIPID SCREEN [facility] Start: 04-08-2014 Provider Instructions for Treatment Follow up in 6-8 months [facility] Work Phone: Start: 12-17-2013 Assay of thyroid stimulating hormone tsh TSH (57618) [facility]; [facility] Work Phone: Start: 12-17-2013 TSH Qn TSH ([id number]) [facility] Work Phone: Start: 12-17-2013 Assay of free thyroxine T4, FREE (THYROXINE) ([id number]) [facility]; [facility] Work Phone: Start: 12-17-2013 Free T4 [Mass/Vol] T4, FREE (THYROXINE) (55395) [facility] Work Phone: Start: 12-17-2013 Assay of triiodothyronine t3 free T3, FREE (TRIDOTHYRONINE) ([id number]) [facility]; [facility] Work Phone: Start: 12-17-2013 Free T3 [Mass/Vol] T3, FREE (TRIDOTHYRONINE) ([id number]) [facility] Work Phone: Start: 12-17-2013 Lipid panel LIPID PANEL (64970) [facility] Work Phone: Start: 12-17-2013 Hepatic function panel HEPATIC FUNCTION PANEL (91117) [facility] Work Phone: Start: 09-21-2013 Patient Education Flu (Influenza) *: flu [facility] Work Phone: Start: 09-21-2013 Provider Instructions for Treatment [facility] Work Phone: Start: 06-22-2012 Patient Education Abdominal Pain: abdominal pain [facility] Work Phone: Start: 06-22-2012 Comprehensive metabolic panel METABOLIC PANEL, COMPREHENSIVE (76234) [facility] Work Phone: Start: 02-15-2011 Provider Instructions for Treatment [facility] Work Phone: Start: 02-05-2011 Acute hepatitis panel HEPATITIS PANEL (88078) [facility] Work Phone: Comment on above: also has h/o tatoos Start: 02-05-2011 Assay of thyroid stimulating hormone tsh TSH (69685) [facility]; [facility] Work Phone: Start: 02-05-2011 TSH Qn TSH (65373) [facility] Work Phone: Start: 02-05-2011 Assay of free thyroxine T4, FREE (THYROXINE) (98085) [facility]; [facility] Work Phone: Start: 02-05-2011 Free T4 [Mass/Vol] T4, FREE (THYROXINE) (01960) [facility] Work Phone: Start: 02-05-2011 Assay of triiodothyronine t3 free T3, FREE (TRIDOTHYRONINE) (25373) [facility]; [facility] Work Phone: Start: 02-05-2011 Free T3 [Mass/Vol] T3, FREE (TRIDOTHYRONINE) (85355) [facility] Work Phone: Start: 02-05-2011 Glucose [Mass/Vol] Glucose, PP/2 Hour (79126) [facility] Work Phone: Start: 02-05-2011 Glucose quantitative blood xcpt reagent strip Glucose, PP/2 Hour (89508) [facility]; [facility] Work Phone: Start: 02-05-2011 Hepatic function panel HEPATIC FUNCTION PANEL (98310) [facility] Work Phone: Start: 02-05-2011 Immunoassay analyte qual/semiqual multiple step ANTIMITOCHONDRIAL ANTIBODY (35881) [facility] Work Phone: Start: 02-05-2011 Assay of glutamyltrase gamma GGT (GAMMA GLUTAMYLTRANSFERASE) (04013) [facility]; [facility] Work Phone: Start: 02-05-2011 Gamma glutamyl transferase [Catalytic activity/Vol] GGT (GAMMA GLUTAMYLTRANSFERASE) (40493) [facility] Work Phone: Start: 02-05-2011 Assay of [id number] TRANSFERRIN (40370) [facility]; [facility] Work Phone: Start: 02-05-2011 Transferrin [Mass/Vol] TRANSFERRIN ([id number]) [facility] Work Phone: Start: 02-05-2011 Assay of ferritin FERRITIN (25577) [facility]; [facility] Work Phone: Start: 02-05-2011 Ferritin [Mass/Vol] FERRITIN (35623) [facility] Work Phone: Start: 02-05-2011 Antinuclear antibodies dany DANY (ANTINUCLEAR ANTIBODY) (95699) [facility]; [facility] Work Phone: Start: 02-05-2011 Nuclear Ab IF (S) [Titer] DANY (ANTINUCLEAR ANTIBODY) (43605) [facility] Work Phone: Start: 02-05-2011 Provider Instructions for Treatment Diet, Exercise, and Wt loss [facility] Work Phone: Start: 1991 Hepatitis B Vaccine (1 of 3 - 19+ 3-dose series) Hepatitis B Vaccine (1 of 3 - 19+ 3-dose series) [facility] Start: 1990 Anxiety Screening Anxiety Screening [facility] Start: 1990 Depression Screening Depression Screening [facility] Start: 1990 HEPATITIS C SCREENING HEPATITIS C SCREENING [facility] Start: 1990 Hepatitis C screening Hepatitis C Screening [facility] Start: 1990 HIV SCREENING HIV SCREENING [facility] Start: 1990 HIV screening HIV Screening [facility] Start: 1984 Adult depression screening assessment DEPRESSION SCREENING [facility] Start: 1972 HEPATITIS B (1 of 3 - 3-dose series) HEPATITIS B (1 of 3 - 3-dose series) [facility] Start: 1972 Hepatitis B Vaccine (1 of 3 - 3-dose series) Hepatitis B Vaccine (1 of 3 - 3-dose series) [facility] Work Phone: [facility] Work Phone: [facility] Work Phone: [facility] Work Phone: [facility] Work Phone: Immunizations Immunization Date Immunization Notes Care Provider Fa cili 06-02-2024 influenza, seasonal, injectable Immunization [place] Work Phone: [facility] 06-04-2023 influenza, injectabl e, quadrivalent, contains preservative Immunization [place] Work Phone: [facility] 06-04-2023 influenza virus vaccine, unspecified formulation Xr [place] Work Phone: [facility] 06-05-2022 influenza, injectabl e, quadrivalent, contains preservative Immunization [place] Work Phone: [facility] 06-06-2021 influenza, injectabl e, quadrivalent, contains preservative Renea Praisler-Wood WIRELESS CONSULTANT.[facility] Work Phone: [facility] 07-12-2020 influenza, injectabl e, quadrivalent, contains preservative Renea Praisler-Wood WIRELESS CONSULTANT.[facility] Work Phone: [facility] Work Phone: 11-04-2019 tetanus toxoid, reduced diphtheria toxoid, and acellular pertussis vaccine, adsorbed Renea Praisler-Wood WIRELESS CONSULTANT.[facility] Work Phone: [facility] 06-30-2019 influenza, injectabl e, quadrivalent, contains preservative Renea Praisler-Wood WIRELESS CONSULTANT.[facility] Work Phone: [facility] 06-03-2018 influenza, injectabl e, quadrivalent, contains preservative Renea Praisler-Wood WIRELESS CONSULTANT.[facility] Work Phone: [facility] 07-09-2017 influenza, injectabl e, quadrivalent, contains preservative Renea Praisler-Wood WIRELESS CONSULTANT.[facility] Work Phone: [facility] 06-26-2016 influenza, injectabl e, quadrivalent, contains preservative Renea Praisler-Wood WIRELESS CONSULTANT.[facility] Work Phone: [facility] Work Phone: 06-14-2015 influenza, injectabl e, quadrivalent, contains preservative Renea Praisler-Wood WIRELESS CONSULTANT.[facility] Work Phone: [facility] 06-30-2013 influenza virus vaccine, unspecified formulation Renea Praisler-Wood WIRELESS CONSULTANT.[facility] Work Phone: [facility] Work Phone: 06-24-2012 influenza virus vaccine, unspecified formulation Renea Praisler-Wood WIRELESS CONSULTANT.[facility] Work Phone: [facility] 06-26-2011 influenza virus vaccine, unspecified formulation Renea Praisler-Wood WIRELESS CONSULTANT.[facility] Work Phone: [facility] Work Phone: 07-11-2010 influenza virus vaccine, unspecified formulation Renea Nieto WIRELESS CONSULTANT.[facility] Work Phone: [facility] Work Phone: 05-31-2009 influenza virus vaccine, unspecified formulation Renea Nieto WIRELESS CONSULTANT.[facility] Work Phone: [facility] Work Phone: 07-20-2008 influenza virus vaccine, unspecified formulation Renea Nieto WIRELESS CONSULTANT.[facility] Work Phone: [facility] Work Phone: Payers Date Payer Category Payer Unknown 2021 Unknown [id number] Social History Date Type Detail Facility Start: 04-21-2022 End: 06-04-2023 Caffeine Use Caffeine Use [facility] Work Phone: Comment on above: 2 energy drinks a da y Tobacco use: Tobacco use: [facility] Work Phone: Start: 03-24-2016 Tobacco smoking status NHIS Never smoked tobacco [facility] Start: 03-24-2016 Tobacco use and exposure Smokeless tobacco non-user [facility] Start: 04-21-2022 End: 02-25-2024 Alcohol intake Current non-drinker of alcohol (finding) [facility] Start: 1970 Sex Assigned At Not on file [facility] Tobacco use: Tobacco use: [facility]; [facility] Work Phone: Start: 04-21-2022 End: 06-04-2023 Tobacco use panel [facility] National Score (1-100), lower number is lower risk 67 [facility] Clinical Notes 04-21-2022 to 02-25-2024 Katelynn Martinez, RT(R) - 02/25/2024 9:50 AM EDTPCaryn sr APRN.[employer] - 02/25/2024 9:40 AM EDTPatient Branden Nieto APRN.[employer] - 04/21/2022 7:49 PM EDT Note Date & Type Note Facility 02-25-2024 History of Presen t illness Narrative Radiology Service Progress Note PATIENT NAME: Esdras Granger Jr. DATE OF SERVICE: February 25, 2024 TIME: 9:47 AM PATIENT IDENTITY VERIFICATION COMPLETED USING TWO (2) IDENTIFIERS: Name and Date of confirmed by patient verbally. FALL SCREENING: Has the patient had 2 falls in the last year or 1 fall with injury or currently using an Ambulatory Assistive Device (Walker, Cane, Wheelchair, Crutches, etc.)? No PATIENT GENDER DATA: Male PATIENT RELEVANT IMPLANT DATA REVIEWED: Yes PATIENT PRESENTS WITH AN IMPLANTABLE OR ATTACHED CRUISE CONSULTANT: No RADIOLOGY DEPARTMENT: General X-ray: Exam(s) Completed: Lower Extremity X-Ray(s): Foot, Right PERIPHERAL IV DATA: Not applicable SIGNED BY: GRACE Pollock) February 25, 2024 9:47 AM documented in this encounter [facility] 02-25-2024 Note HNO ID: [id number] Author: KATELYNN MARTINEZ RT (R) Service: Radiology Author Type: Technologist Type: Progress Notes Filed: 02/25/2024 09:58 Note Text: Radiology Service Progress Note PATIENT NAME: Esdras Granger Jr. DATE OF SERVICE: February 25, 2024 TIME: 9:47 AM PATIENT IDENTITY VERIFICATION COMPLETED USING TWO (2) IDENTIFIERS: Name and Date of confirmed by patient verbally. FALL SCREENING: Has the patient had 2 falls in the last year or 1 fall with injury or currently using an Ambulatory Assistive Device (Walker, Cane, Wheelchair, Crutches, etc.)? No PATIENT GENDER DATA: Male PATIENT RELEVANT IMPLANT DATA REVIEWED: Yes PATIENT PRESENTS WITH AN IMPLANTABLE OR ATTACHED CRUISE CONSULTANT: No RADIOLOGY DEPARTMENT: General X-ray: Exam(s) Completed: Lower Extremity X-Ray(s): Foot, Right PERIPHERAL IV DATA: Not applicable SIGNED BY: GRACE Pollock) February 25, 2024 9:47 AM [facility] 02-25-2024 Note HNO ID: [id number] Author: CARYN GAVIRIA APRN.[employer] Service: ? Author Type: Nurse Practitioner Type: Progress Notes Filed: 02/25/2024 10:43 Note Text: Subjective HPI Nontoxic-appearing male presents urgent care chief complaint right heel pain. Duration of symptoms 1 day. Associated symptoms right heel pain. Patient states stepped out of his truck in his rubber boots when he slipped off the step striking his heel in the gravel. Feels like his stone struck him squarely on the right heel. Presents today with persistent pain. States it is hard to bear weight due to discomfort. Denies any other injuries. No numbness no tingling. No decrease sensation. No fractures or surgeries in the past. Past medical history prescription medications allergies reviewed. .Patient presents with: Pain (foot): R heel, slipped and landed on heel, unable to bear weight without pain x 1 day PAST MEDICAL HISTORY Diagnosis Date Recurrent cold sores Renal calculi PAST SURGICAL HISTORY Procedure Laterality Date APPENDECTOMY 1984 F ESWL UNILATERAL 2007 Rt kidney stone LAPAROSCOPY SURG CHOLECYSTECTOMY 09/06/2012 Cholecystectomy, lap LASIK 2000 i[facility] ALL[facility]GIES Patient has no known allergies. MEDICATIONS acyclovir (ZOVIRAX) 400 mg tablet Take 1 tablet by mouth three times daily. (Patient not taking: Reported on 04/21/2022) mupirocin (BACTROBAN) 2 % ointment Apply 1 application to affected area three times daily. (Patient not taking: Reported on 04/21/2022) FAMILY HISTORY Problem Relation Age of Onset Heart Paternal Grandfather Diabetes Paternal Grandfather Social History Tobacco Use Smoking status: Never Smokeless tobacco: Never Substance Use Topics Alcohol use: No Drug use: No BP 144/84 Pulse 71 Temp 36.4 ?C (97.6 ?F) Resp 20 Wt 127 kg (279 lb 15.8 oz) SpO2 98% Review of Systems Constitutional: Negative for chills, fever and malaise/fatigue. HENT: Negative for congestion, ear discharge, ear pain, sinus pain and sore throat. Eyes: Negative for blurred vision, pain, discharge and redness. Respiratory: Negative for cough, hemoptysis, sputum production, shortness of breath, wheezing and stridor. Cardiovascular: Negative for chest pain. Gastrointestinal: Negative for abdominal pain, diarrhea, nausea and vomiting. Musculoskeletal: Positive for falls. Negative for back pain, joint pain, myalgias and neck pain. Right heel pain Skin: Negative for itching and rash. Neurological: Negative for dizziness and headaches. Objective Physical Exam Constitutional: General: He is not in acute distress. Appearance: He is not toxic-appearing. HENT: Head: Normocephalic. Nose: Nose normal. Eyes: Pupils: Pupils are equal, round, and reactive to light. Cardiovascular: Rate and Rhythm: Normal rate. Pulmonary: Effort: Pulmonary effort is normal. No respiratory distress. Musculoskeletal: Cervical back: Normal range of motion. Right ankle: No swelling, deformity or ecchymosis. Normal range of motion. Anterior drawer test negative. Normal pulse. Right Achilles Tendon: No tenderness. Right foot: Normal range of motion and normal capillary refill. No swelling, deformity, tenderness or bony tenderness. Feet: Comments: Pain with palpation highlighted area. No breaks in skin. Skin: General: Skin is warm and dry. Neurological: General: No focal deficit present. Mental Status: He is alert. ASSESSMENT/PLAN: 1. Injury of right foot, initial encounter - ICD9: 959.7, ICD10: S99.921A - XR FOOT GENERAL 3V AP/LAT/OBL RIGHT IMPRESSION: Moderate soft tissue swelling over the foot. No fractures are identified No fractures noted on x-ray. Treat as contusion. Follow-up 5 to 7 days symptoms or not improving. Patient was educated on supportive therapies. Patient will follow up with primary care provider as needed. Patient was instructed to immediately proceed to emergency room for any new, worsening, or symptoms lasting longer than anticipated. The patient's clinical presentation is otherwise unremarkable at this time. Based on exam and clinical finding, the patient is stable for discharge. Plan of care was discussed with patient. Patient verbalizes understanding and agrees to plan of care. This note was generated using [employer] software. It may contain errors in wording, punctuation, or spelling. Caryn Gaviria APRN.[facility] 02-25-2024 History of Presen t illness Narrative Images from the original note were not included. Subjective HPI Nontoxic-appearing male presents urgent care chief complaint right heel pain. Duration of symptoms 1 day. Associated symptoms right heel pain. Patient states stepped out of his truck in his rubber boots when he slipped off the step striking his heel in the gravel. Feels like his stone struck him squarely on the right heel. Presents today with persistent pain. States it is hard to bear weight due to discomfort. Denies any other injuries. No numbness no tingling. No decrease sensation. No fractures or surgeries in the past. Past medical history prescription medications allergies reviewed. .Patient presents with: Pain (foot): R heel, slipped and landed on heel, unable to bear weight without pain x 1 day PAST MEDICAL HISTORY Diagnosis Date Recurrent cold sores Renal calculi PAST SURGICAL HISTORY Procedure Laterality Date APPENDECTOMY 1985 F ESWL UNILATERAL 2008 Rt kidney stone LAPAROSCOPY SURG CHOLECYSTECTOMY 09/06/2012 Cholecystectomy, lap LASIK 2000 irene ALLERGIES Patient has no known allergies. MEDICATIONS acyclovir (ZOVIRAX) 400 mg tablet Take 1 tablet by mouth three times daily. (Patient not taking: Reported on 04/21/2022) mupirocin (BACTROBAN) 2 % ointment Apply 1 application to affected area three times daily. (Patient not taking: Reported on 04/21/2022) FAMILY HISTORY Problem Relation Age of Onset Heart Paternal Grandfather Diabetes Paternal Grandfather Social History Tobacco Use Smoking status: Never Smokeless tobacco: Never Substance Use Topics Alcohol use: No Drug use: No BP 144/84 Pulse 71 Temp 36.4 C (97.6 F) Resp 20 Wt 127 kg (279 lb 15.8 oz) SpO2 98% Review of Systems Constitutional: Negative for chills, fever and malaise/fatigue. HENT: Negative for congestion, ear discharge, ear pain, sinus pain and sore throat. Eyes: Negative for blurred vision, pain, discharge and redness. Respiratory: Negative for cough, hemoptysis, sputum production, shortness of breath, wheezing and stridor. Cardiovascular: Negative for chest pain. Gastrointestinal: Negative for abdominal pain, diarrhea, nausea and vomiting. Musculoskeletal: Positive for falls. Negative for back pain, joint pain, myalgias and neck pain. Right heel pain Skin: Negative for itching and rash. Neurological: Negative for dizziness and headaches. Objective Physical Exam Constitutional: General: He is not in acute distress. Appearance: He is not toxic-appearing. HENT: Head: Normocephalic. Nose: Nose normal. Eyes: Pupils: Pupils are equal, round, and reactive to light. Cardiovascular: Rate and Rhythm: Normal rate. Pulmonary: Effort: Pulmonary effort is normal. No respiratory distress. Musculoskeletal: Cervical back: Normal range of motion. Right ankle: No swelling, deformity or ecchymosis. Normal range of motion. Anterior drawer test negative. Normal pulse. Right Achilles Tendon: No tenderness. Right foot: Normal range of motion and normal capillary refill. No swelling, deformity, tenderness or bony tenderness. Feet: Comments: Pain with palpation highlighted area. No breaks in skin. Skin: General: Skin is warm and dry. Neurological: General: No focal deficit present. Mental Status: He is alert. ASSESSMENT/PLAN: 1. Injury of right foot, initial encounter - ICD9: 959.7, ICD10: S99.921A - XR FOOT GENERAL 3V AP/LAT/OBL RIGHT IMPRESSION: Moderate soft tissue swelling over the foot. No fractures are identified No fractures noted on x-ray. Treat as contusion. Follow-up 5 to 7 days symptoms or not improving. Patient was educated on supportive therapies. Patient will follow up with primary care provider as needed. Patient was instructed to immediately proceed to emergency room for any new, worsening, or symptoms lasting longer than anticipated. The patient's clinical presentation is otherwise unremarkable at this time. Based on exam and clinical finding, the patient is stable for discharge. Plan of care was discussed with patient. Patient verbalizes understanding and agrees to plan of care. This note was generated using [employer] software. It may contain errors in wording, punctuation, or spelling. Caryn Gaviria APRN.[facility] documented in this encounter [facility] 04-21-2022 Instructions Renea Nieto APRN.[facility] - 04/21/2022 8:10 PM EDT ASSESSMENT/PLAN: 1. Injury of right thumb, initial encounter - ICD9: 959.5, ICD10: S69.91XA - XR DIGIT GENERAL 3V FRONTAL/LAT/OBL RIGHT. My reading: no fracture. Radiologist IMPRESSION: No acute fracture or dislocation. Friction Welding Machine Operator: VANESA Transcribe Date/Time: Apr 21 2022 8:07P Dictated by : BOB CONTE MD - wear splint as directed. -apply ice to swollen area 2-3 times daily, 20 minutes at a time. - may take tylenol as needed for pain. - Follow-up with your PCP in 3-5 days if symptoms have not improved or sooner if symptoms worsen - Discussed red flags and need for immediate medical evaluation if any occur. - Discussed supportive care treatment with rest and analgesia. Renea Nieto APRN.[facility] CONTUSIONS GENERAL INFORMATION: A contusion, or bruise, is caused by an injury that does not break the skin. Bleeding under the skin causes it to look black and blue. It may take 2 or 3 weeks for the bruising to disappear. INSTRUCTIONS: 1. You may continue your normal daily activities as tolerated. Rest the injured area as much as possible. 2. Apply ice to the injury for 15 minutes each hour (while awake) for the first two days. Put the ice in a plastic bag and place a thin towel between the bag of ice and your skin. 3. After the first 1 to 2 days, you may apply heat to the injury to help relieve pain. You may use a warm heating pad, whirlpool bath, or warm moist towels for 15-20 minutes every hour (while awake) for 48 hours. 4. You may use medicines for pain such as acetaminophen, ibuprofen or aspirin (unless otherwise instructed by your physician). CONTACT YOUR DOCTOR OR RETURN TO THE ED IF: 1. Your pain becomes worse. 2. You develop a temperature over 101 F (38.3 C). 3. The swelling increases greatly in the area of the bruise. 4. Redness or lines of redness develop in the area of the bruise. documented in this encounter [facility] 04-21-2022 History of Presen t illness Narrative Subjective HPI Esdras Granger Jr. is a 51 year old male who presents with thumb pain and swelling. He injured it a week ago- hit on the lid of his tool box. It really did not bother him much but then a few days later he bumped it and the thumb was immediately painful and he had swelling which has persisted. Review of Systems Constitutional: Negative for fever. Musculoskeletal: Positive for joint pain. Skin: Negative for itching and rash. BP 122/82 Pulse 84 Temp 36.5 C (97.7 F) (Tympanic) Resp 16 Wt 122.4 kg (269 lb 12.8 oz) SpO2 97% BMI 37.63 kg/m PAST MEDICAL HISTORY Diagnosis Date Recurrent cold sores Renal calculi PAST SURGICAL HISTORY Procedure Laterality Date APPENDECTOMY 1985 F ESWL UNILATERAL 2008 Rt kidney stone LAPAROSCOPY SURG CHOLECYSTECTOMY 09/06/2012 Cholecystectomy, lap LASIK 2000 irene [facility]ERGIES Patient has no known allergies. MEDICATIONS acyclovir (ZOVIRAX) 400 mg tablet Take 1 tablet by mouth three times daily. (Patient not taking: Reported on 04/21/2022) mupirocin (BACTROBAN) 2 % ointment Apply 1 application to affected area three times daily. (Patient not taking: Reported on 04/21/2022) FAMILY HISTORY Problem Relation Age of Onset Heart Paternal Grandfather Diabetes Paternal Grandfather Social History Tobacco Use Smoking status: Never Smokeless tobacco: Never Substance Use Topics Alcohol use: No Drug use: No Objective Physical Exam Vitals and nursing note reviewed. Constitutional: Appearance: Normal appearance. Skin: General: Skin is warm and dry. Capillary Refill: Capillary refill takes less than 2 seconds. Findings: No erythema or rash. Neurological: Mental Status: He is alert. ASSESSMENT/PLAN: 1. Injury of right thumb, initial encounter - ICD9: 959.5, ICD10: S69.91XA - XR DIGIT GENERAL 3V FRONTAL/LAT/OBL RIGHT My reading: no fracture. Radiologist IMPRESSION: No acute fracture or dislocation. Friction Welding Machine Operator: VANESA Transcribe Date/Time: Apr 21 2022 8:07P - wear splint as directed. -apply ice to swollen area 2-3 times daily, 20 minutes at a time. - may take tylenol as needed for pain. - Follow-up with your PCP in 3-5 days if symptoms have not improved or sooner if symptoms worsen - Discussed red flags and need for immediate medical evaluation if any occur. - Discussed supportive care treatment with rest and analgesia. Renea Nieto APRN.[employer] GRADER documented in this encounter [facility] Evaluation note Diagnosis Injury of right thumb, initial encounter- Primary [facility] Diagnosis Injury of right foot, initial encounter- Primary Injury of right foot, initial encounter [facility] Diagnosis Injury of right foot, initial encounter [facility] Diagnosis Injury of right thumb, initial encounter [facility] Name Dates Details How to access health informa tion online Indication:Fatty liver Start:08-Apr-2014 Instruction Type:Patient Education How to access health informa tiQuincee online - Detail Indication:Fatty liver Start:08-Apr-2014 Instruction Type:Patient Education Patient Instructions Indication:Fatty liver Start:08-Apr-2014 Instruction Type:Provider Instructions for Treatment Patient Instructions Indication:Elevated LFTs Start:21-Sep-2013 Instruction Type:Provider Instructions for Treatment Patient Instructions Indication:Abdominal pain, acute, right upper quadrant Start:22-Jun-2012 Instruction Type:Provider Instructions for Treatment [facility]; [facility] Work Phone: reason for referral (narrative)* Diagnostic Procedure Only (Urgent) - Closed Specialty Diagnoses / Procedures Referred By Contac t Referred To Contact XR IMAGING Diagnoses Injury of right thumb, initial encounter Procedures XR DIGIT GENERAL 3V FRONTAL/LAT/OBL RIGHT RADEX FINGR MINIMUM 2 VIEWS Renea Nieto APRN.CNP [address] [place] [address] Xr Imaging Referral ID Status Reason Start Date Expiration Date V isits Requested Visits Authorized [id number] Closed Auto-Generate d Referral 04/21/2022 05/21/2023 1 1 [facility] for referral (narrative)* Diagnostic Procedure Only (Urgent) - Closed Specialty Diagnoses / Procedures Referred By Contac t Referred To Contact XR IMAGING Diagnoses Injury of right foot, initial encounter Procedures XR FOOT GENERAL 3V AP/LAT/OBL RIGHT RADEX FOOT COMPLETE MINIMUM 3 VIEWS Caryn Gaviria APRN.CNP [address] [place] [address] [place] [address] Referral ID Status Reason Start Date Expiration Date V isits Requested Visits Authorized [id number] Closed Auto-Generate d Referral 02/25/2024 03/26/2025 1 1 [facility] for referral (narrative)* Diagnostic Procedure Only (Urgent) - Closed Specialty Diagnoses / Procedures Referred By Contac t Referred To Contact XR IMAGING Diagnoses Injury of right foot, initial encounter Procedures XR FOOT GENERAL 3V AP/LAT/OBL RIGHT RADEX FOOT COMPLETE MINIMUM 3 VIEWS Caryn Gaviira APRN.[employer] T[employer] GRADER [address] [place] [address] [place] [address] Referral ID Status Reason Start Date Expiration Date V isits Requested Visits Authorized [id number] Closed Auto-Generate d Referral 02/25/2024 03/26/2025 1 1 [facility] for referral (narrative)* Diagnostic Procedure Only (Urgent) - Closed Specialty Diagnoses / Procedures Referred By Contac t Referred To Contact XR IMAGING Diagnoses Injury of right thumb, initial encounter Procedures XR DIGIT GENERAL 3V FRONTAL/LAT/OBL RIGHT RADEX FINGR MINIMUM 2 VIEWS Renea Nieto APRN.[employer] GRADER [address] [place] [address] [place] [address] Referral ID Status Reason Start Date Expiration Date V isits Requested Visits Authorized [id number] Closed Auto-Generate d Referral 04/21/2022 05/21/2023 1 1 [facility] for visit Narrative* Diagnostic Procedure Only (Urgent) - Closed Specialty Diagnoses / Procedures Referred By Contac t Referred To Contact XR IMAGING Diagnoses Injury of right foot, initial encounter Procedures XR FOOT GENERAL 3V AP/LAT/OBL RIGHT RADEX FOOT COMPLETE MINIMUM 3 VIEWS Caryn Gaviria APRN.[employer] T[employer] GRADER [address] [place] [address] [place] [address] Referral ID Status Reason Start Date Expiration Date V isits Requested Visits Authorized [id number] Closed Auto-Generate d Referral 02/25/2024 03/26/2025 1 [facility]* Diagnostic Procedure Only (Urgent) - Closed Specialty Diagnoses / Procedures Referred By Contac t Referred To Contact XR IMAGING Diagnoses Injury of right thumb, initial encounter Procedures XR DIGIT GENERAL 3V FRONTAL/LAT/OBL RIGHT RADEX FINGR MINIMUM 2 VIEWS Renea Nieto, WIRELESS CONSULTANT.CHRISTMAS TREE GRADER [address] [place] [address] [place] [address] Referral ID Status Reason Start Date Expiration Date V isits Requested Visits Authorized [id number] Closed Auto-Generate d Referral 04/21/2022 05/21/2023 1 1 [facility] Family History No Family History Records FoundUnknown Family Member Name Dates Details Family Members In General Comments:CT on maternal side Status:Active Father Comments:BP Status:Active Unknown Family Member Name Dates Details Family Members In General Comments:CT on maternal side Status:Active Father Comments:BP Status:Active Instructions Name Dates Details How to access health informa tion online Indication:Fatty liver Start:08-Apr-2014 Instruction Type:Patient Education How to access health informa tion online - Detail Indication:Fatty liver Start:08-Apr-2014 Instruction Type:Patient Education Patient Instructions Indication:Fatty liver Start:08-Apr-2014 Instruction Type:Provider Instructions for Treatment Patient Instructions Indication:Elevated LFTs Start:21-Sep-2013 Instruction Type:Provider Instructions for Treatment Patient Instructions Indication:Abdominal pain, acute, right upper quadrant Start:22-Jun-2012 Instruction Type:Provider Instructions for Treatment Summary Purpose Advance Directives No Advanced Directives Records Found Additional Source Comments Source Comments (unrecognize d section and content) In the event this informatio n is protected by the Federal Confidentiality of Alcohol and Drug Abuse Patient Records regulations: The Federal rules restrict any use of the information to criminally investigate or prosecute any alcohol or drug abuse patient.[facility] the event this information is protected by the Federal Confidentiality of Alcohol and Drug Abuse Patient Records regulations: The Federal rules restrict any use of the information to criminally investigate or prosecute any alcohol or drug abuse patient.[facility] the event this information is protected by the Federal Confidentiality of Alcohol and Drug Abuse Patient Records regulations: The Federal rules restrict any use of the information to criminally investigate or prosecute any alcohol or drug abuse patient.[facility] the event this information is protected by the Federal Confidentiality of Alcohol and Drug Abuse Patient Records regulations: The Federal rules restrict any use of the information to criminally investigate or prosecute any alcohol or drug abuse patient.[facility] the event this information is protected by the Federal Confidentiality of Alcohol and Drug Abuse Patient Records regulations: The Federal rules restrict any use of the information to criminally investigate or prosecute any alcohol or drug abuse patient.[facility] the event this information is protected by the Federal Confidentiality of Alcohol and Drug Abuse Patient Records regulations: The Federal rules restrict any use of the information to criminally investigate or prosecute any alcohol or drug abuse patient.[facility] the event this information is protected by the Federal Confidentiality of Alcohol and Drug Abuse Patient Records regulations: The Federal rules restrict any use of the information to criminally investigate or prosecute any alcohol or drug abuse patient.[facility] Reason for Visit (unrecogniz ed section and content) Reason Comments right thumb pain Injired it 1 week ag o and a tool fell on it Reason Comments Pain (foot) R heel, slipped and landed on heel, unable to bear weight without pain x 1 day Care Teams (unrecognized sec tion and content) [employer] Sales Consult[employer] Relationship Specialty Start Date End Date Debbie Pack DO PCP - General Internal Medicine 07/05/12 [employer] Sales Consultant Relationship Specialty Start Date End Date Debbie Pack DO PCP - General Internal Medicine 07/05/12 [employer] Sales Consultant Relationship Specialty Start Date End Date Debbie Pack DO PCP - General Internal Medicine 07/05/12 [employer] Sales Consultant Relationship Specialty Start Date End Date Debbie Pack DO PCP - General Internal Medicine 07/05/12 [employer] Sales Consultant Relationship Specialty Start Date End Date Debbie Pack DO PCP - General Internal Medicine 07/05/12 [employer] Sales Consultant Relationship Specialty Start Date End Date Debbie Pack DO PCP - [facility] Internal [facility] 07/05/12 [employer] Sales Consultant Relationship Specialty Start Date End Date Debbie Pack DO PCP - [facility] Internal [facility] 07/05/12 (unrecognized sect ion and content) No Status Records Found INFORMATION SOURCE (unrecogn ized section and content) DATE CREATED AUTHOR 06/03/2024 [facility] FOR RECORDS PERTAINING TO PATIENTS WHO ARE OR HAVE BEEN ENROLLED IN A CHEMICAL DEPENDENCY/SUBSTANCEABUSE PROGRAM, SOME INFORMATION MAY BE OMITTED. This clinical summary was aggregated from multiple sources. Caution should be exercised in using it in the provision of clinical care. This summary normalizes information from multiple sources, and as a consequence, information in this document may materially change the coding, format and clinical context of patient data. In addition, data may be omitted in some cases. CLINICAL DECISIONS SHOULD BE BASED ON THE PRIMARY CLINICAL RECORDS. [employer] [facility]. provides no warranty or guarantee of the accuracy or completeness of information in this document.
--- NOTE | 2024-07-09 06:30 | HP.PCM_ITS ---
HPI - General General Date of Admission: 07/09/24 Date of Service: 07/09/24 Chief Complaint: screening colon HPI Narrative ESDRAS CAMPUZANO, is a 53 M who presents today for screening colonoscopy. He has not had a colonoscopy in the past. He does not take any medicines on a daily basis. [facility] Medical History (Updated 07/05/24 @ 13:40 by Rebecca Driscoll) Fatty liver Non-smoker CPAP (continuous positive airway pressure) dependence Home Medications ?Medication ?Instructions ?Recorded ?Last Taken ?Type NK 06/07/24 Unknown History Allergy/AdvReac Type Severity Reaction Status Date / Time No Known Allergies Allergy Verified 07/05/24 13:33 Surgical History (Updated 07/05/24 @ 13:40 by Rebecca Driscoll) Hx of wisdom tooth extraction History of lithotripsy Hx laparoscopic cholecystectomy Hx of LASIK Hx of appendectomy Social History (Updated 06/07/24 @ 12:01 by Liss Murdock) household members: spouse and children number of children: 2 current occupational status: employed current occupation: [employer] Smoking Status: Never smoker alcohol intake: never substance use type: does not use ROS Review of Systems ROS Unobtainable: other Constitutional Constitutional: Denies fatigue, fever(s), poor appetite, weight gain or weight loss ENT HEENT: Denies mouth lesions Cardiovascular Cardiovascular: Denies abdominal bloating, abdominal edema or abdominal pain Respiratory/Chest Respiratory/Chest: Denies change in mental status, change in phlegm color, chest congestion or chest tightness Gastrointestinal Gastrointestinal: Denies belching, bloating, change in bowel habits, change in stool character, chewing difficulty, coffee ground emesis, constipation, cramping, diarrhea, dyspepsia, dysphagia, early satiety, excessive flatus, fecal incontinence, heartburn, hematemesis, hematochezia, hemorrhoids, loose stools, melena, nausea, odynophagia, rectal bleeding, tenesmus, vomiting or weight changes Genitourinary Genitourinary: Denies abdominal discomfort, burning urination or itching Musculoskeletal Musculoskeletal: Reports as per HPI; Denies muscle weakness or myalgias Integumentary Integumentary: Denies jaundice Neurologic Neurologic: Denies lack of coordination or weakness Psychiatric Psychiatric: Denies confusion, depression, memory loss, mood swings, paranoia or suicidal ideation Endocrine Endocrinology: Denies systems reviewed and no addt'l complaints, except as documented Hematologic/Lymphatic Hematologic/Lymphatic: Denies anemia, easy bleeding, easy bruising or lymphaden opathy Allergic/Immunologic Allergic/Immunologic: Denies systems reviewed and no addt'l complaints, except as documented Vital Signs Vital Signs Vital Signs: 07/09/24 05:55 07/09/24 05:55 Temperature 98.6 F Temperature Source Temporal Pulse Rate 76 Respiratory Rate 18 Respiratory Pattern Normal Blood Pressure 122/78 H Blood Pressure Mean 92 Blood Pressure Source Monitor Blood Pressure Position Sitting Blood Pressure Location Left Arm Pulse Ox 98 Oxygen Delivery Method Room Air Weight Weight: 268 lb 15.423 oz Body Mass Index (BMI) 38.5 Physical Exam Const alert General Appearance: cooperative Orientation / Consciousness: oriented to person HEENT hearing grossly normal bilaterally Head and Scalp: normal to inspection Face and Sinus: face symmetric Nose: external nose normal Mouth: oral and palatal mucosa normal Eyes conjunctivae normal General Eye: normal appearance of both eyes Neck full ROM General: normal visual inspection Lymph Lymphatic: no lymphadenopathy noted Chest inspection of chest normal and palpation of chest normal Chest: symmetrical chest wall rise Resp normal respiratory effort Effort and Inspection: able to speak in complete sentences Cardio regular rate GI non-distended Percussion: normal to percussion Rectal Exam: deferred Neuro Speech: speech normal Gait (Neuro): normal gait Assessment & Plan Assessment/Plan (1) Encounter for screening for malignant neoplasm of colon: PLAN: He will undergo screening colonoscopy. He was explained alternatives, risk, benefits include not withstanding bleeding, infection, sepsis, perforation, need for emergent surgery . He will have an ASA of 3.
--- NOTE | 2024-07-09 06:33 | PRE.ANES_ITS ---
ASA Classification* ASA Classification ASA Classification: 2 Assessment & Plan Anesthesia* Anesthesia Assessment Anesthesia Assessment: Discussed sedation and/or anesthesia options, risks, benefits, and alternatives with patient/parents/legal guardian/POA. Questions invited. The patient/parents/legal guardian/POA seems to understand and agrees to proceed with anesthesia plan. Reviewed the physical assessment, medical history, allergy history and patient home medications list prior to surgery/procedure/anesthetic and documented any changes. Performed airway and anesthesia risk assessments. Anesthesia Type Anesthesia Type: MAC Anesthesia Focused Assessment* Temperature: 98.6 F Pulse Rate: 76 Blood Pressure: 122/78 Respiratory Rate: 18 Pulse Ox: 98 Airway Assessment Mouth opens: >3 cm Mallampati Score: II Focused Labs Anesthesia Preop lab: CBC WBC 5.0 K/mm3 (4.4-11.0) 04/06/24 15:41 RBC 4.83 M/mm3 (4.6-6.2) 04/06/24 15:41 Hgb 14.8 g/dL (13.0-16.5) 04/06/24 15:41 Hct 43.6 % (40-54) 04/06/24 15:41 Plt Count 271 K/mm3 (150-450) 04/06/24 15:41 CHEMISTRY Potassium 3.9 mmol/L (3.5-5.1) 04/06/24 15:41 Sodium 137 mmol/L (136-145) 04/06/24 15:41 Magnesium 2.3 mg/dL (1.6-2.6) 04/06/24 15:41 BUN 16 mg/dL (7-18) 04/06/24 15:41 Creatinine 0.95 mg/dL (0.70-1.30) 04/06/24 15:41 Glucose 99 mg/dL (74-106) 04/06/24 15:41 TSH 1.98 uIU/mL (0.358-3.74) 01/28/23 16:57 COAG Pre-Assessment Diagnosis/Proposed Procedure Planned Operative Procedure(s): CSCOPE OA Anesthesia History Anesthesia History - karate black belt: Anesthesia History - karate black belt Hx Hospitalization No 07/05/24 13:34 Any Problems With Anesthesia No 07/05/24 13:34 Cholinesterase deficiency No 07/05/24 13:34 You/Your Family Experience No 07/05/24 13:34 fever (hyperthermia) with Relationship Recent Exposure to Contagious No 07/09/24 05:55 Disease Does patient have nerve No 07/05/24 13:34 stimulator Patient instructed to have device shut off --Does patient have Pacemaker No 07/09/24 05:55 or ICD? When Was Last Pacemaker Check QUESTION #4 FULL TEXT: You/Your Family Experience fever (hyperthermia) with Anesthesia Last Oral Intake Last Oral intake: Last Oral Intake NPO since 03:00 07/09/24 05:55 Meds taken in AM with sips of No 07/09/24 05:55 water? Meds patient instructed to take am of surgery PONV PONV - karate black belt: PONV - karate black belt Female No 07/05/24 13:34 HX of Motion Sickness No 07/05/24 13:34 HX of N/V After Surgery No 07/05/24 13:34 Non-Smoker Yes 07/05/24 13:34 Duration of Surgery greater No 07/05/24 13:34 than 60 minutes Number of Risk Factors 1 07/05/24 13:34 PONV Score Low Risk 07/05/24 13:34 Height & Weight Height & Weight: Anesthesia: Height & Weight Height 5 ft 10 in 07/09/24 05:55 Weight: 122 kg 07/09/24 05:55 Body Mass Index (BMI) 38.5 07/09/24 05:55 Respiratory Assessment Respiratory Assessment - karate black belt: Respiratory Tract Infection Hx - karate black belt Hx Respiratory Tract Infection No 07/05/24 13:34 STOP Sleep Apnea STOP Sleep Apnea - karate black belt: STOP Sleep Apnea - karate black belt Hx Hypertension No 07/05/24 13:34 Hx Sleep Apnea Yes 07/05/24 13:34 CPAP Yes 07/05/24 13:34 BIPAP No 07/05/24 13:34 Do you snore loudly (louder than talking or can be heard Do you often feel tired/ fatigued/ sleepy during daytime? Has anyone observed you stop breathing during sleep? STOP Results Positive 07/05/24 13:34 QUESTION #5 FULL TEXT : Do you snore loudly (louder than talking or can be heard through closed doors)? Tobacco Use History Tobacco Use History - karate black belt: Tobacco Use History - karate black belt Tobacco Use Smoking Status Never smoker 07/05/24 13:34 Hx Tobacco Use No 07/05/24 13:34 Years Smoking Packs Smoked per Day Smoking Cessation Date was within the last 15 years Hx Smoking Cessation Date Hx Smoking Cessation Counseling Hematologic Medial History Hematologic Hx - karate black belt: Hematologic Medical Hx - barn worker Hx of Blood Transfusion No 07/05/24 13:34 Hx of Transfusion in last 3 No 07/05/24 13:34 Months Date of Last Transfusion (if within last 3 months) Ever experience any problems No 07/05/24 13:34 with transfusion(s)? Specify any problems Hx of Preganancy in last 3 N/A 07/05/24 13:34 Months Nurse Filling Out Transfusion DSCHRIBER 07/05/24 13:34 & Questions: Date: 07/05/24 07/05/24 13:34 Time: 13:35 07/05/24 13:34 Patient unable to answer at this time (ie. confused, unrespo /Reproduction History /Reproductive History - karate black belt: /Reproductive Hx- karate black belt Hx Now No 07/05/24 13:34 Gestational Age (in weeks): EDC: Hx Hx Para Hx Section SAB No 07/05/24 13:34 PFSH Medical History Fatty liver Non-smoker CPAP (continuous positive airway pressure) dependence Home Medications ?Medication ?Instructions ?Recorded ?Last Taken ?Type NK 06/07/24 Unknown History Allergy/AdvReac Type Severity Reaction Status Date / Time No Known Allergies Allergy Verified 07/05/24 13:33 Surgical History Hx of wisdom tooth extraction History of lithotripsy Hx laparoscopic cholecystectomy Hx of LASIK Hx of appendectomy Social History household members: spouse and children number of children: 2 current occupational status: employed current occupation: [employer] Smoking Status: Never smoker alcohol intake: never substance use type: does not use Review of Systems (Anesthesia) ROS Narrative System reviewed and no additional complaints, except as documented.
--- NOTE | 2024-07-09 07:05 | OP.COLON_ITS ---
Patient Name: Kishan Granger Procedure Date: 07/09/2024 6:34 AM Date of : 1970 Age: 53 Procedure: Colonoscopy Indications: Screening for colorectal malignant neoplasm Providers: Stiven Iglesias DO Medicines: Monitored Anesthesia Care Patient Profile: This is a 53 year old male. Refer to note in patient chart for documentation of history and physical. Last Colonoscopy: none. The patient's first colonoscopy is today. Complications: No immediate complications. Procedure: Pre-Anesthesia Assessment: - Prior to the procedure, a History and Physical was performed, and patient medications and allergies were reviewed. The patient is competent. The risks and benefits of the procedure and the sedation options and risks were discussed with the patient. All questions were answered and informed consent was obtained. Patient identification and proposed procedure were verified by the physician in the pre-procedure area. Mental Status Examination: alert and oriented. Airway Examination: normal oropharyngeal airway and neck mobility. Respiratory Examination: clear to auscultation. CV Examination: normal. Prophylactic Antibiotics: The patient does not require prophylactic antibiotics. Prior Anticoagulants: The patient has taken no anticoagulant or antiplatelet agents except for NSAID medication. ASA Grade Assessment: II - A patient with mild systemic disease. After reviewing the risks and benefits, the patient was deemed in satisfactory condition to undergo the procedure. The anesthesia plan was to use monitored anesthesia care (MAC). Immediately prior to administration of medications, the patient was re-assessed for adequacy to receive sedatives. The heart rate, respiratory rate, oxygen saturations, blood pressure, adequacy of pulmonary ventilation, and response to care were monitored throughout the procedure. The physical status of the patient was re-assessed after the procedure. After I obtained informed consent, the scope was passed under direct vision. Throughout the procedure, the patient's blood pressure, pulse, and oxygen saturations were monitored continuously. The colonoscope was introduced through the anus and advanced to the cecum, identified by appendiceal orifice and ileocecal valve. The colonoscopy was performed without difficulty. The patient tolerated the procedure well. The quality of the bowel preparation was adequate. The ileocecal valve, appendiceal orifice, and rectum were photographed. Scope In: 6:47:57 AM Scope Withdrawal Time 0 hours 9 minutes 1 second Scope Out: 6:59:41 AM Total Procedure Duration Time 0 hours 11 minutes 44 seconds Findings: The perianal and digital rectal examinations were normal. A few small-mouthed diverticula were found in the recto-sigmoid colon and sigmoid colon. The exam was otherwise without abnormality on direct and retroflexion views. Impression: - Diverticulosis in the recto-sigmoid colon and in the sigmoid colon. - The examination was otherwise normal on direct and retroflexion views. - No specimens collected. Recommendation: - Discharge patient to home. - Resume previous diet. - Continue present medications. - Repeat colonoscopy in 10 years for screening purposes. Procedure Code(s): --- Professional --- G0121, Colorectal cancer screening; colonoscopy on individual not meeting criteria for high risk CPT copyright 2021 [employer]. All rights reserved. The codes documented in this report are preliminary and upon residential door installer review may be revised to meet current compliance requirements. Stiven Iglesias DO 07/09/2024 7:04:08 AM This report has been signed electronically. Number of Addenda: 0 Note Initiated On: 07/09/2024 6:34 AM
--- NOTE | 2024-07-09 07:05 | OP.CCLET_ITS ---
07/09/2024 Jean Pearson [address] [place] [address] Re : Colonoscopy procedure for [facility] Dear Dr. Pearson This procedure was performed on Tuesday, July 09, 2024. My impressions and recommendations are as follows: Impressions : - Diverticulosis in the recto-sigmoid colon and in the sigmoid colon. - The examination was otherwise normal on direct and retroflexion views. - No specimens collected. Recommendations : - Discharge patient to home. - Resume previous diet. - Continue present medications. - Repeat colonoscopy in 10 years for screening purposes. My findings are described in the full procedure note, which is enclosed. If I can be of further assistance, please feel free to contact me at . Sincerely, Stiven Iglesias, 07/09/2024 7:04:08 AM This report has been signed electronically.
--- NOTE | 2024-07-09 07:09 | PCM.POST.ANE ---
Anesthesia: Postop Eval I Current Vital Signs Temperature: 97.8 F Pulse Rate: 66 Blood Pressure: 98/65 Respiratory Rate: 16 Pulse Ox: 96 Oxygen Delivery Method: Room Air Assessment Airway patent: Yes Spontaneous unlabored respirations: Yes Mental status: Asleep nausea: No Vomiting: No Anesthesia Complication: No Fluid Hydration Crystalloid volume administer (ml): 40 Total IV fluid infused: 40 Progress Note Anesthesia document: Postop Eval 1 completed: Yes
--- NOTE | 2024-07-09 08:17 | PCM.POSTANE2 ---
Anesthesia Postop Eval I Sum Postop Eval Completion status Anesthesia document: Postop Eval 1 completed: Yes Anesthesia Postop Eval I Summary Anesthesia Postop Eval I Summary: Anesthesia Postop Eval I: Assessment Summary Airway patent Yes 07/09/24 07:09 [email or web address] Spontaneous unlabored Yes 07/09/24 07:09 [email or web address] respirations Mental status Asleep 07/09/24 07:09 [email or web address] nausea No 07/09/24 07:09 [email or web address] Vomiting No 07/09/24 07:09 [email or web address] Anesthesia Postop Eval I: Fluid Summary Crystalloid volume administer 40 07/09/24 07:09 [email or web address] (ml) Colloids volume administered ( ml) Blood Product volume administered (ml) Total IV fluid infused 40 07/09/24 07:09 [email or web address] Anesthesia Postop Eval I: Summary Notes Anesthesia Complication No 07/09/24 07:09 [email or web address] Anesthesia Complication Comment: Post-operative progress note Anesthesia: Postop Eval II Evaluation Mental status: Awake Pain Level: 0 nausea: No Vomiting: No
== END 2024-07-09 07:47 | disposition home or self-care (01) ==
LOC: EN 05:28 → AC 05:30
PROVIDERS: PCP Family Medicine; Referring Provider Family Medicine; Visit Provider Internal Medicine Gastroenterology
PROC: 0DJD8ZZ Inspection of Lower Intestinal Tract, Via Natural or Artificial Opening Endoscopic (ICD-10-PCS; CPT 45378; principal; 2024-07-09 06:25)
DX: Z12.11 Encounter for screening for malignant neoplasm of colon (principal); K57.30 Diverticulosis of large intestine without perforation or abscess without bleeding; Z90.49 Acquired absence of other specified parts of digestive tract; G47.30 Sleep apnea, unspecified
CPT/HCPCS: 45378; A4216; J2405

== ENCOUNTER → 2024-07-16 | Outpatient (CLI) | payer OTHER, SELFPAY ==
[2024-07-16 12:20] LABS: Absolute Lymphocyte Count 1.43 X10^3/uL (0.83-4.51); Absolute Neutrophil Count 3.5 X10^3/uL (2.0-7.7); Basophil# 0.04 X10^3/uL; Basophil% 0.7 % (0-1); Eosinophil# 0.08 X10^3/uL; Eosinophils% 1.4 % (0-5); Hematocrit 42.8 % (40-54); Hemoglobin 14.5 g/dL (13.0-16.5); Lymphocyte # 1.43 X10^3/ul (0.83-4.51); Lymphocyte % 24.7 % (19-41); Mean Corp Hgb Conc 33.9 g/dL (32-36); Mean Corpuscular Hgb 30.5 pg (27.0-32.0); Mean Corpuscular Volume 89.9 fL (80-94); Mean Platelet Vol. 10.2 fl (6.2-12.0); Monocyte# 0.69 X10^3/uL; Monocyte% 11.9 % (0-10); NRBC Flagged by Analyzer 0 % (0-5); Neutrophil # 3.53 X10^3/uL (2.7-7.7); Platelet Count 259 K/mm3 (150-450); RBC Distribution Width CV 12.4 % (11.6-14.6); RBC Distribution Width SD 40.9 fl (35.1-43.9); Red Blood Count 4.76 M/mm3 (4.6-6.2); White Blood Count 5.8 K/mm3 (4.4-11.0)
[2024-07-16 12:46] LABS: Vitamin D,25 Hydroxy 17.9 ng/mL
[2024-07-16 12:51] LABS: ALB/GLOB Ratio 1.2 RATIO (0.9-2.4); AST(SGOT) 27 U/L (15-37); Alanine Aminotransfer ALT/SGPT 48 U/L (16-61); Alkaline Phosphatase 70 U/L (45-117); Anion Gap 7 (5-15); BUN 14 mg/dL (7-18); BUN/Creat Ratio 15.8 RATIO (10-20); Calcium,Total 8.9 mg/dL (8.5-10.1); Chloride 105 mmol/L (98-107); Creatinine, Serum 0.88 mg/dL (0.70-1.30); EST Glomerular Filtration Rate 96 mL/min (>60); Est Glom Filt Rate - Afr Amer 116 mL/min (>60); Globulin 3.3 g/dL (2.2-4.2); Glucose 96 mg/dL (74-106); Potassium 3.8 mmol/L (3.5-5.1); Protein, Total 7.3 g/dL (6.4-8.2); Sodium Level 138 mmol/L (136-145)
== END | disposition home or self-care (01) ==
LOC: MFPLAB 09:26
PROVIDERS: PCP Family Medicine; Visit Provider Family Medicine
DX: K76.0 Fatty (change of) liver, not elsewhere classified (principal); E55.9 Vitamin D deficiency, unspecified
CPT/HCPCS: 36415; 80053; 82306; 85025

== ENCOUNTER 2025-03-21 12:21 | Outpatient (CLI) | payer OTHER, SELFPAY ==
[2025-03-21 15:26] LABS: Hematocrit 43.6 % (40-54); Hemoglobin 14.9 g/dL (13.0-16.5); Immature Granulocytes Count 0.020 X10^3/uL (0.0-0.0); Mean Corp Hgb Conc 34.2 g/dL (32-36); Mean Corpuscular Volume 90.5 fL (80-94); Mean Platelet Vol. 9.9 fl (6.2-12.0); NRBC Flagged by Analyzer 0 % (0-5); Platelet Count 266 K/mm3 (150-450); RBC Distribution Width CV 12.8 % (11.6-14.6); RBC Distribution Width SD 42.1 fl (35.1-43.9); Red Blood Count 4.82 M/mm3 (4.6-6.2); White Blood Count 5.0 K/mm3 (4.4-11.0)
[2025-03-21 15:37] LABS: Color, Urine Yellow (Yellow); Glucose, Dipstick Normal (Normal); Ketone-Dipstick Negative (Negative); Leukocyte Esterase-Dipstick Negative /ul (Negative); Nitrite-Dipstick Negative (Negative); Occult Blood-Urine 10 /ul (Negative); Protein-Dipstick 15 mg/dl (Negative); Specific Gravity, Urine 1.020 (1.002-1.030); Urine Bilirubin Dipstick Negative (Negative)
[2025-03-21 16:16] LABS: Squamous Epithelial Cells - UA 0-5 SEEN /hpf (0-5)
[2025-03-21 16:17] LABS: Mucous, Urine 2+ /hpf (<or=2+)
[2025-03-21 16:18] LABS: Red Blood Cells-Urine 0-5 SEEN /hpf (0-5)
[2025-03-21 17:01] LABS: AST(SGOT) 36 U/L (<=37); Alanine Aminotransfer ALT/SGPT 65 U/L (<=46); Albumin, Serum 4.2 g/dL (3.5-5.0); Alkaline Phosphatase 74 U/L (40-129); Anion Gap 11 (5-15); BUN 12 mg/dL (4-19); BUN/Creat Ratio 13.5 RATIO (10-20); Calcium,Total 9.2 mg/dL (7.6-11.0); Carbon Dioxide 23.1 mmol/L (21.0-32.0); Chloride 106 mmol/L (98-108); Globulin 3.2 g/dL (2.2-4.2); Glucose 98 mg/dL (70-99); Magnesium 2.1 mg/dL (1.5-2.2); Potassium 4.3 mmol/L (3.3-5.1); Vitamin D,25 Hydroxy 20.6 ng/mL (30-100)
[2025-03-21 17:31] LABS: Cholesterol 185 mg/dL (<=200); Low Density Lipoprotein Calc. 126 mg/dL; Triglycerides 105 mg/dL; Very Low Density Lipoprotein 21 mg/dL (5-40); cholesterol:hdl ratio screen 4.84
== END 2025-03-21 23:59 | disposition home or self-care (01) ==
LOC: MFPLAB 12:22
PROVIDERS: PCP Family Medicine; Referring Provider Family Medicine; Visit Provider Family Medicine
DX: R03.0 Elevated blood-pressure reading, without diagnosis of hypertension (principal); E55.9 Vitamin D deficiency, unspecified
CPT/HCPCS: 36415; 80053; 80061; 81001; 82306; 83735; 85025

== ENCOUNTER → 2025-05-15 | Outpatient (CLI) | payer OTHER, SELFPAY ==
--- NOTE | 2025-05-15 11:13 | NEURO ---
NCS and/or EMG Patient Report Ordering Doctor: Sindy Auqino DATE OF SERVICE: 05/15/25 Kishan presents numbness and tingling in both hands. Electrodiagnostic Findings: Right median motor nerve demonstrates prolonged distal latency with normal amplitude and reduced conduction velocity. Left median motor nerve demonstrates prolonged latency with normal amplitude and reduced conduction velocity. Ulnar motor response within normal limits bilaterally. Prolonged median F?wave bilaterally. Prolonged median sensory latency at the wrist bilaterally. Normal ulnar and radial sensory responses. Needle EMG testing was performed in the upper limbs. All muscles tested showed no evidence of denervation with normal motor unit action potentials. Electrodiagnostic impression: This is an abnormal study in the upper limbs. 1. Electrodiagnostic findings suggestive of bilateral median mononeuropathy. This is consistent with a mild to moderate bilateral carpal tunnel syndrome. Multi Select Codes Neurology Neurology Interp Codes: 14450-70 Musc test done w/n test comp (interp) (2) and 00665-89 Nrv cndj test 9-10 studies (interp)
--- OUTSIDE RECORDS SUMMARY | 2025-05-15 11:30 | XMS RPT_ITS | CCD ---
Author Organization [facility] CliniSymd Care Team Providers Care Larriman Helper Name Role Phone Debbie Pack Unavailable Type Casting Machine Operator, System Unavailable Unavailable Kenia Hubbard Unavailable Unavailable Andriy, Jacquie Unavailable Unavailable Unavailable Unavailable Debbie Pack DO Primary Care Provider Debbie Pack DO Primary Care Provider Debbie Pack DO Unavailable [phone] Type Casting Machine Operator, System Unavailable Unavailable Messenger Kenia MARIN Unavailable Unavailable Andriy Jacquie Unavailable Unavailable Unavailable Unavailable Debbie Pack DO Primary Care Provider Debbie Pack DO Primary Care Provider SELF Referring Unavailable DEBBIE PACK Primary Care Unavailab DEBBIE Almonte Primary Care Unavailab WALKER Nazario Referring Unavailable DEBBIE PACK Primary Care Unavailab DEBBIE [place]te Primary Care Unavailab Dr. Jean Romo MD Primary Care Provider Dr. Jean Pearson MD Attending Provider Dr. Jean Pearson MD Referring Provider Jean Pearson Referring Unavailable Jean Pearson Primary Care Unavailable Jean Pearson Attending Unavailable Jean Pearson Primary Care Unavailable Liss Murdock Attending Unavailable Jean Pearson Primary Care Unavailable Jean Pearson Attending Unavailable Jean Pearson Referring Unavailable Jean Pearson Primary Care Unavailable Harris, Stiven Consulting Unavailable Stiven Iglesias Attending Unavailable Jean Pearson Referring Unavailable Jean Pearson Primary Care Unavailable FriendStiven Attending Unavailable Jean Pearson Primary Care Unavailable Jean Pearson Attending Unavailable Medications Current Medications Medication Drug Class(es) Dates Sig (Normalized) Sig (Original) acyclovir 400 mg oral tablet (8 sources) Herpesvirus Nucleoside Analog DNA Polymerase Inhibitor, [...] times daily. mupirocin 0.02 mg/mg topical ointment (8 sources) RNA Synthetase Inhibitor Antibacterial Start: 11-04-2019 [...] Hypertriglyceridemi a; Translations: [Hyperglyceridemia] 07-22-2015 Chronic Other circulatory disease (1 source) Elevated blood-pressure reading, without diagnosis of hypertension; Translations: [Elevated blood-pressure reading, without diagnosis of hypertension] Onset: 03-27-2025 Episodic Other injuries and conditions due to [...] liver; Translations: [Fatty liver] 07-22-2015 Chronic Other liver diseases (1 source) Fatty (change of) liver, not elsewhere classified; Translations: [Fatty (change of) liver, not elsewhere classified] Onset: 12-09-2024 Chronic Other nutritional; endocrine; and metabolic disorders (4 sources) Cholesterol level - finding; Translations: [Low HDL (under 40)] 07-21-2015 Chronic Comment on above: increase exercise Other nutritional; endocrine; and metabolic disorders (3 sources) Weight gain; Translations: [Weight gain] 04-08-2014 Episodic Other upper respiratory infections (1 source) Viral upper respiratory tract infection; Translations: [Acute upper respiratory infection, unspecified] 08-25-2024 Episodic Residual codes; unclassified (2 sources) Family [...] Documented Date Episodic/Chronic Calculus of urinary tract (8 sources) Kidney stone; Translations: [Calculus of kidney] Onset: 7 04-18-2007 Episodic Contraceptive and procreative management (8 sources) Patient encounter status; Translations: [Encounter for sterilization] Onset: 7 09-04-2007 Episodic Other injuries and conditions due to external causes (1 source) Unspecified injury of right foot, initial encounter; Translations: [Injury of right foot, initial encounter] Onset: 4 Episodic Other lower respiratory disease (8 sources) Hemoptysis; Translations: [Hemoptysis] Onset: 8 10-28-2007 Episodic Other screening for suspected conditions (not mental disorders or infectious disease) (15 sources) Liver function tests abnormal; Translations: [Thyroid hormone tests abnormal] Onset: 4 Resolved: 4 06-11-2015 Episodic Unclassified (3 sources) Hypertriglycerides (272.1) Unclassified (3 sources) Abnormal TSH (794.5) Unclassified (2 sources) Low HDL (272.5) Unclassified (1 source) Screening status; Translations: [Screening for prostate cancer] 06-10-2015 Unclassified (1 source) Weight gain (783.1) Unclassified (2 sources) Abdominal Pain,RUQ(789.01) Results Test Name Value Interpretation Reference Range Facility Absolute lymphocyte countOrd ered By: Jean Pearson on 03-21-2025 Lymphocytes Auto (Unsp spec) [#/Vol] 1.37 10*3/uL 0.83-4.51 [facility] Absolute neutrophil countOrd ered By: Jean Pearson on 03-21-2025 Neutrophils (Bld) [#/Vol] 2.9 10*3/uL 2.0-7.7 [facility] Anion gap in Serum or Plasma Ordered By: Jean Pearson on 03-21-2025 Anion gap [Moles/Vol] 11 mmol/L 5- [facility] Automated lymphocyte count a s percentage of total leukocytesOrdered By: Jean Pearson on 03-21-2025 Lymphocytes/100 WBC Auto (Unsp spec) 27.2 % 19- [facility] BUN/creatinine ratioOrdered By: Jean Pearson on 03-21-2025 Urea nitrogen/Creatinine [Mass ratio] 13.5 mg/mg 10- [facility] Basophil percentageOrdered B y: Jean Pearson on 03-21-2025 Basophils/100 WBC (Bld) 0.8 % 0-1 [facility] Bilirubin Test strip Ql (U)O rdered By: Jean Pearson on 03-21-2025 Bilirubin Ql (U) Negative Negative [facility] Bilirubin, totalOrdered By: Jean Pearson on 03-21-2025 Bilirubin [Mass/Vol] 0.54 mg/dL 0.00-1.30 [facility] CBC W/Diff, Automatedon 03-05 Absolute Lymph 1.37 X10 3/uL Normal 0.83-4.51 [facility] Comment on above: Order Comment: Order Date: 12/14/24 Order Info: [id number] - CBCD Performed By: #### L 100.0100, L500.4050, L501.5200, L500.4100 #### [facility] [address] [place], [place], [id number] Absolute Neut 2.9 X10 3/uL Normal 2.0-7.7 [facility] Comment on above: Order Comment: Order Date: 12/14/24 Order Info: [id number] - CBCD Performed By: #### L 100.0100, L500.4050, L501.5200, L500.4100 #### [facility] [address] [place], [address] Basophils/100 WBC (Bld) 0.8 % Normal 0-1 [facility] Comment on above: Order Comment: Order Date: 12/14/24 Order Info: [id number] - CBCD Performed By: #### L 100.0100, L500.4050, L501.5200, L500.4100 #### [facility] [address] [place], [address] Eosinophils/100 WBC (Bld) 2.2 % Normal 0-5 [facility] Comment on above: Order Comment: Order Date: 12/14/24 Order Info: [id number] - CBCD Performed By: #### L 100.0100, L500.4050, L501.5200, L500.4100 #### [facility] [address] [place], [address] Erythrocyte distribution width (RBC) [Ratio] 12.8 % Normal 11.6-14.6 [facility] Comment on above: Order Comment: Order Date: 12/14/24 Order Info: [id number] - CBCD Performed By: #### L 100.0100, L500.4050, L501.5200, L500.4100 #### [facility] [address] [place], [address] Hematocrit (Bld) [Volume fraction] 43.6 % Normal 40-54 [facility] Comment on above: Order Comment: Order Date: 12/14/24 Order Info: [id number] - CBCD Performed By: #### L 100.0100, L500.4050, L501.5200, L500.4100 #### [facility] [address] [place], [address] Hemoglobin (Bld) [Mass/Vol] 14.9 g/dL Normal 13.0-16.5 [facility] Comment on above: Order Comment: Order Date: 12/14/24 Order Info: [id number] - CBCD Performed By: #### L 100.0100, L500.4050, L501.5200, L500.4100 #### [facility] [address] [place], [address] IG% 0.400 Normal 0.0-0.9 [facility] Comment on above: Order Comment: Order Date: 12/14/24 Order Info: [id number]- - CBCD Result Comment: IG% - Immature Granulocytes (promyelocytes, myelocytes and metamyelocytes) > 1% indicates that a LEFT SHIFT is Present. Performed By: #### L 100.0100, L500.4050, L501.5200, L500.4100 #### [facility] [address] [place], [address] Lymphocytes/100 WBC (Bld) 27.2 % Normal 19-41 [facility] Comment on above: Order Comment: Order Date: 12/14/24 Order Info: [id number] - CBCD Performed By: #### L 100.0100, L500.4050, L501.5200, L500.4100 #### [facility] [address] [place], [address] MCH (RBC) [Entitic mass] 30.9 pg Normal 27.0-32.0 [facility] Comment on above: Order Comment: Order Date: 12/14/24 Order Info: [id number] - CBCD Performed By: #### L 100.0100, L500.4050, L501.5200, L500.4100 #### [facility] [address] [place], [address] MCHC (RBC) [Mass/Vol] 34.2 g/dL Normal 32-36 [facility] Comment on above: Order Comment: Order Date: 12/14/24 Order Info: [id number] - CBCD Performed By: #### L 100.0100, L500.4050, L501.5200, L500.4100 #### [facility] [address] [place], [address] MCV (RBC) [Entitic vol] 90.5 fL Normal 80-94 [facility] Comment on above: Order Comment: Order Date: 12/14/24 Order Info: [id number] - CBCD Performed By: #### L 100.0100, L500.4050, L501.5200, L500.4100 #### [facility] [address] [place], [address] Monocytes/100 WBC (Bld) 12.3 % High 0-10 [facility] Comment on above: Order Comment: Order Date: 12/14/24 Order Info: [id number] - CBCD Performed By: #### L 100.0100, L500.4050, L501.5200, L500.4100 #### [facility] [address] [place], [address] Neutrophils/100 WBC (Bld) 57.1 % Normal 47-70 [facility] Comment on above: Order Comment: Order Date: 12/14/24 Order Info: [id number] - CBCD Performed By: #### L 100.0100, L500.4050, L501.5200, L500.4100 #### [facility] [address] [place], [address] Nucleated RBC (Bld) [#/Vol] 0 10*3/uL Normal 0-5 [facility] Comment on above: Order Comment: Order Date: 12/14/24 Order Info: [id number] - CBCD Performed By: #### L 100.0100, L500.4050, L501.5200, L500.4100 #### [facility] [address] [place], [address] Platelet mean volume (Bld) [Entitic vol] 9.9 fL Normal 6.2-12.0 [facility] Comment on above: Order Comment: Order Date: 12/14/24 Order Info: [id number] - CBCD Performed By: #### L 100.0100, L500.4050, L501.5200, L500.4100 #### [facility] [address] [place], [address] Platelets (Bld) [#/Vol] 266 10*3/uL Normal 150-450 [facility] Comment on above: Order Comment: Order Date: 12/14/24 Order Info: [id number] - CBCD Performed By: #### L 100.0100, L500.4050, L501.5200, L500.4100 #### [facility] [address] [place], [address] RBC (Bld) [#/Vol] 4.82 10*6/uL Normal 4.6-6.2 [facility] Comment on above: Order Comment: Order Date: 12/14/24 Order Info: [id number] - CBCD Performed By: #### L 100.0100, L500.4050, L501.5200, L500.4100 #### [facility] [address] [place], [address] RDW SD 42.1 fl Normal 35.1-43.9 [facility] Comment on above: Order Comment: Order Date: 12/14/24 Order Info: [id number] - CBCD Performed By: #### L 100.0100, L500.4050, L501.5200, L500.4100 #### [facility] [address] [place], [address] WBC (Bld) [#/Vol] 5.0 10*3/uL Normal 4.4-11.0 [facility] Comment on above: Order Comment: Order Date: 12/14/24 Order Info: [id number] - CBCD Performed By: #### L 100.0100, L500.4050, L501.5200, L500.4100 #### [facility] [address] [place], [address] Calculated very low density lipoprotein (VLDL) cholesterol measurementOrdered By: Jean Pearson on 03-21-2025 Calculated very low density lipoprotein (VLDL) cholesterol measurement 21 mg/dL 5-40 [facility] Carbon dioxide, total [Moles /volume] in Central venous bloodOrdered By: Jean Pearson on 03-21-2025 CO2 [Moles/Vol] 23.1 mmol/L 21.0-32.0 [facility] Chloride assayOrdered By: Lucía Pearson on 03-21-2025 Chloride [Moles/Vol] 106 mmol/L 98-108 [facility] Comprehensive Metabolic Prof ilon 03-21-2025 Albumin [Mass/Vol] 4.2 g/dL Normal 3.5-5.0 [facility] Comment on above: Order Comment: Order Date: 12/14/24 Order Info: [id number] - CMP Order Info: [id number] - LIPID Order Info: [id number] - MG Performed By: #### L 100.0100, L500.4050, L501.5200, L500.4100 #### [facility] [address] [place], [place], [id number] Albumin/Globulin [Mass ratio] 1.3 {ratio} Normal 0.9-2.4 [facility] Comment on above: Order Comment: Order Date: 12/14/24 Order Info: [id number] - CMP Order Info: [id number] - LIPID Order Info: [id number] - MG Performed By: #### L 100.0100, L500.4050, L501.5200, L500.4100 #### [facility] [address] [place], [address] ALK PHOS 74 U/L Normal 40-129 [facility] Comment on above: Order Comment: Order Date: 12/14/24 Order Info: [id number] - CMP Order Info: [id number] - LIPID Order Info: - MG Performed By: #### L 100.0100, L500.4050, L501.5200, L500.4100 #### [facility] [address] [place], [address] ALT [Catalytic activity/Vol] 65 U/L High <=46 [facility] Comment on above: Order Comment: Order Date: 12/14/24 Order Info: 07-1 - CMP Order Info: [id number] - LIPID Order Info: - MG Performed By: #### L 100.0100, L500.4050, L501.5200, L500.4100 #### [facility] [address] [place], [address] AST [Catalytic activity/Vol] 36 U/L Normal <=37 [facility] Comment on above: Order Comment: Order Date: 12/14/24 Order Info: [id number]- - CMP Order Info: [id number] - LIPID Order Info: - MG Performed By: #### L 100.0100, L500.4050, L501.5200, L500.4100 #### [facility] [address] [place], [address] Bilirubin [Mass/Vol] 0.54 mg/dL Normal 0.00-1.30 [facility] Comment on above: Order Comment: Order Date: 12/14/24 Order Info: [id number] - CMP Order Info: [id number] - LIPID Order Info: [id number] - MG Performed By: #### L 100.0100, L500.4050, L501.5200, L500.4100 #### [facility] [address] [place], [address] BUN/CRE 13.5 RATIO Normal 10-20 [facility] Comment on above: Order Comment: Order Date: 12/14/24 Order Info: [id number] - CMP Order Info: [id number] - LIPID Order Info: [id number] - MG Performed By: #### L 100.0100, L500.4050, L501.5200, L500.4100 #### [facility] [address] [place], [address] Calcium [Mass/Vol] 9.2 mg/dL Normal 7.6-11.0 [facility] Comment on above: Order Comment: Order Date: 12/14/24 Order Info: [id number] - CMP Order Info: [id number] - LIPID Order Info: [id number] - MG Performed By: #### L 100.0100, L500.4050, L501.5200, L500.4100 #### [facility] [address] [place], [address] Chloride [Moles/Vol] 106 mmol/L Normal 98-108 [facility] Comment on above: Order Comment: Order Date: 12/14/24 Order Info: [id number] - CMP Order Info: [id number] - LIPID Order Info: [id number] - MG Performed By: #### L 100.0100, L500.4050, L501.5200, L500.4100 #### [facility] [address] [place], [address] CO2 [Moles/Vol] 23.1 mmol/L Normal 21.0-32.0 [facility] Comment on above: Order Comment: Order Date: 12/14/24 Order Info: [id number] - CMP Order Info: [id number] - LIPID Order Info: [id number] - MG Performed By: #### L 100.0100, L500.4050, L501.5200, L500.4100 #### [facility] [address] [place], [address] Creatinine [Mass/Vol] 0.85 mg/dL Normal 0.70-1.20 [facility] Comment on above: Order Comment: Order Date: 12/14/24 Order Info: [id number] - CMP Order Info: [id number] - LIPID Order Info: [id number] - MG Performed By: #### L 100.0100, L500.4050, L501.5200, L500.4100 #### [facility] [address] [place], [address] GAP 11 Normal 5-15 [facility] Comment on above: Order Comment: Order Date: 12/14/24 Order Info: 86-1 - CMP Order Info: [id number] - LIPID Order Info: [id number] - MG Performed By: #### L 100.0100, L500.4050, L501.5200, L500.4100 #### [facility] [address] [place], [address] GFR/1.73 sq M.predicted among non-blacks MDRD (S/P/Bld) [Vol rate/Area] 105 mL/min/{1.73_m2} Normal >60 [facility] Comment on above: Order Comment: Order Date: 12/14/24 Order Info: 07- - CMP Order Info: [id number] - LIPID Order Info: [id number] - MG Result Comment: mL/m in/1.73m2 CKD-EPI Creatinine Equation (2020) Performed By: #### L 100.0100, L500.4050, L501.5200, L500.4100 #### [facility] [address] [place], [address] Globulin (S) [Mass/Vol] 3.2 g/dL Normal 2.2-4.2 [facility] Comment on above: Order Comment: Order Date: 12/14/24 Order Info: [id number] - CMP Order Info: [id number] - LIPID Order Info: [id number] - MG Performed By: #### L 100.0100, L500.4050, L501.5200, L500.4100 #### [facility] [address] [place], [address] Glucose [Mass/Vol] 98 mg/dL Normal 70-99 [facility] Comment on above: Order Comment: Order Date: 12/14/24 Order Info: [id number]- - CMP Order Info: [id number] - LIPID Order Info: [id number] - MG Performed By: #### L 100.0100, L500.4050, L501.5200, L500.4100 #### [facility] [address] [place], [address] Potassium [Moles/Vol] 4.3 mmol/L Normal 3.3-5.1 [facility] Comment on above: Order Comment: Order Date: 12/14/24 Order Info: [id number]- - CMP Order Info: [id number] - LIPID Order Info: [id number] - MG Performed By: #### L 100.0100, L500.4050, L501.5200, L500.4100 #### [facility] [address] [place], [address] Sodium [Moles/Vol] 140 mmol/L Normal 133-145 [facility] Comment on above: Order Comment: Order Date: 12/14/24 Order Info: [id number]- - CMP Order Info: [id number] - LIPID Order Info: [id number] - MG Performed By: #### L 100.0100, L500.4050, L501.5200, L500.4100 #### [facility] [address] [place], [address] T PROT 7.4 g/dL Normal 5.9-8.4 [facility] Comment on above: Order Comment: Order Date: 12/14/24 Order Info: [id number] - CMP Order Info: [id number] - LIPID Order Info: [id number] - MG Performed By: #### L 100.0100, L500.4050, L501.5200, L500.4100 #### [facility] [address] [place], [address] Urea nitrogen [Mass/Vol] 12 mg/dL Normal 4-19 [facility] Comment on above: Order Comment: Order Date: 12/14/24 Order Info: [id number] - CMP Order Info: [id number] - LIPID Order Info: [id number] - MG Performed By: #### L 100.0100, L500.4050, L501.5200, L500.4100 #### [facility] [address] [place], [place], [address] Eosinophil percentageOrdered By: Jean Pearson on 03-21-2025 Eosinophils/100 WBC (Bld) 2.2 % 0-5 [facility] Erythrocyte distribution wid th ratioOrdered By: Jean Pearson on 03-21-2025 Erythrocyte distribution width (RBC) [Ratio] 12.8 % 11.6-14.6 [facility] Erythrocyte distribution wid th standard deviationOrdered By: Jean Pearson on 03-21-2025 Erythrocyte distribution width (RBC) [Ratio] 42.1 fl 35.1-43.9 [facility] Glomerular filtration rate ( GFR) estimation/1.73 sq m using serum, plasma, or whole bOrdered By: Jean Pearson on 03-21-2025 GFR/1.73 sq M.predicted among non-blacks MDRD (S/P/Bld) [Vol rate/Area] 105 mL/min/{1.73_m2} >60 [facility] Comment on above: mL/min/1.73m2 CKD-EP I Creatinine Equation (2020) Hematocrit Auto (Bld) [Volum e fraction]Ordered By: Jean Pearson on 03-21-2025 Hematocrit (Bld) [Volume fraction] 43.6 % 40-54 [facility] Hemoglobin measurementOrdere d By: Jean Pearson on 03-21-2025 Hemoglobin (Bld) [Mass/Vol] 14.9 g/dL 13.0-16.5 [facility] Immature granulocytes/100 WB C Auto (Bld)Ordered By: Jean Pearson on 03-21-2025 Immature granulocytes/100 WBC (Bld) 0.400 % 0.0-0.9 [facility] Comment on above: IG% - Immature Granu locytes (promyelocytes, myelocytes and metamyelocytes) > 1% indicates that a LEFT SHIFT is Present. Ketones Test strip Ql (U)Ord ered By: Jean Pearson on 03-21-2025 Ketones Ql (U) Negative Negative [facility] LDL calc ser/plasOrdered By: Jean Pearson on 03-21-2025 Cholesterol in LDL [Mass/Vol] 126 mg/dL [facility] Comment on above: Cbxnumsicg=567-314 m g/dL & Higher Piyb=213 mg/dL or greater Laboratory - Chemistry and C hemistry - challengeOrdered By: Jean Pearson on 03-21-2025 AST [Catalytic activity/Vol] 36 U/L <38 [facility] Lipid Profileon 03-21-2025 CHOL:HDL 4.84 Normal [facility] Comment on above: Order Comment: Order Date: 12/14/24Order Info: [id number] - CMPOrder Info: [id number] - LIPIDOrder Info: [id number] - MG Performed By: #### L 100.0100, L500.4050, L501.5200, L500.4100 ####[facility] [address] [place], [address] Cholesterol [Mass/Vol] 185 mg/dL Normal <=200 [facility] Comment on above: Order Comment: Order Date: 12/14/24Order Info: [id number] - CMPOrder Info: [id number] - LIPIDOrder Info: [id number] - MG Result Comment: Chol esterol level, Desirable <200 mg/dL Borderline high cholesterol 200-239 mg/dL High cholesterol >=240 mg/dL Recommendations of the NCEP Adult Treatment Panel for the following risk-cutoff thresholds for the [place] population. Performed By: #### L 100.0100, L500.4050, L501.5200, L500.4100 ####[facility] [address] [place], [address] Cholesterol in HDL [Mass/Vol] 38 mg/dL Low [facility] Comment on above: Order Comment: Order Date: 12/14/24Order Info: [id number] - CMPOrder Info: [id number] - LIPIDOrder Info: [id number] - MG Result Comment: Mary onal Cholesterol Education Program (NCEP) guidelines: <40 mg/dL: Low HDL-cholesterol (major risk factor for CHD) >= 60 mg/dL: High HDL-cholesterol (negative risk factor for CHD) HDL-cholesterol is affected by a number of factors, e.g. smoking, exercise, hormones, sex and age. Performed By: #### L 100.0100, L500.4050, L501.5200, L500.4100 ####[facility] [address] [place], [address] Cholesterol in LDL [Mass/Vol] 126 mg/dL Normal [facility] Comment on above: Order Comment: Order Date: 12/14/24Order Info: [id number] - CMPOrder Info: [id number] - LIPIDOrder Info: [id number] - MG Result Comment: Bord tmnntk=842-927 mg/dL Higher Uayx=918 mg/dL or greater Performed By: #### L 100.0100, L500.4050, L501.5200, L500.4100 ####[facility] [address] [place], [address] Cholesterol in VLDL [Mass/Vol] 21 mg/dL Normal 5-40 [facility] Comment on above: Order Comment: Order Date: 12/14/24Order Info: [id number] - CMPOrder Info: [id number] - LIPIDOrder Info: [id number] - MG Performed By: #### L 100.0100, L500.4050, L501.5200, L500.4100 ####[facility] [address] [place], [address] Triglyceride [Mass/Vol] 105 mg/dL Normal [facility] Comment on above: Order Comment: Order Date: 12/14/24Order Info: [id number] - CMPOrder Info: [id number] - LIPIDOrder Info: [id number] - MG Result Comment: The drugs N-Acetylcysteine and Metamizole may falsely depress this assay. Normal range: <150 mg/dL Borderline High: 150-199 mg/dL High: 200-499 mg/dL Very High: >500 mg/dL Performed By: #### L 100.0100, L500.4050, L501.5200, L500.4100 ####[facility] [address] [place], [address] MCV (mean corpuscular volume ) determinationOrdered By: Jean Pearson on 03-21-2025 MCV (RBC) [Entitic vol] 90.5 fL 80-94 [facility] Magnesiumon 03-21-2025 Magnesium [Mass/Vol] 2.1 mg/dL Normal 1.5-2.2 [facility] Comment on above: Order Comment: Order Date: 12/14/24 Order Info: 0786-1 - CMP Order Info: [id number] - LIPID Order Info: [id number] - MG Performed By: #### L 100.0100, L500.4050, L501.5200, L500.4100 #### [facility] [address] [place], [address] Magnesium measurement (mass/ volume)Ordered By: Jean Pearson on 03-21-2025 Magnesium (Unsp spec) [Mass/Vol] 2.1 mg/dL 1.5-2.2 [facility] Mean corpuscular hemoglobin (MCH) determinationOrdered By: Jean Pearson on 03-21-2025 MCH (RBC) [Entitic mass] 30.9 pg 27.0-32.0 [facility] Mean corpuscular hemoglobin concentration (MCHC) determinationOrdered By: Jean Pearson on 03-21-2025 MCHC (RBC) [Mass/Vol] 34.2 g/dL 32-36 [facility] Mean platelet volume determi nationOrdered By: Jean Pearson on 03-21-2025 Platelet mean volume (Bld) [Entitic vol] 9.9 fL 6.2-12.0 [facility] Microscopic analysis of urin e for red blood cells (RBC)Ordered By: Jean Pearson on 03-21-2025 Microscopic analysis of urine for red blood cells (RBC) 0-5 SEEN /hpf 0-5 [facility] Monocyte percentageOrdered B y: Jean Pearson on 03-21-2025 Monocytes/100 WBC (Bld) 12.3 % High 0-10 [facility] Mucus LM Ql (Urine sed)Order ed By: Jean Pearson on 03-21-2025 Mucus Ql (Urine sed) 2+ /hpf [facility] Neutrophil percentageOrdered By: Jean Pearson on 03-21-2025 Neutrophils/100 WBC (Bld) 57.1 % 47-70 [facility] Nitrite Test strip Ql (U)Ord ered By: Jean Pearson on 03-21-2025 Nitrite Ql (U) Negative Negative [facility] Nucleated red blood cell per centageOrdered By: Jean Pearson on 03-21-2025 Nucleated RBC/100 WBC (Bld) [Ratio] 0 % 0-5 [facility] Platelet countOrdered By: Lucía Pearson on 03-21-2025 Platelets (Bld) [#/Vol] 266 10*3/uL 150-450 [facility] Potassium measurement (mass/ volume)Ordered By: Jean Pearson on 03-21-2025 Potassium (Unsp spec) [Mass/Vol] 4.3 mmol/L 3.3-5.1 [facility] Protein Test strip Ql (U)Ord ered By: Jean Pearson on 03-21-2025 Protein Ql (U) 15 mg/dl High Negative [facility] RBC Auto (Bld) [#/Vol]Ordere d By: Jean Pearson on 03-21-2025 RBC (Bld) [#/Vol] 4.82 10*6/uL 4.6-6.2 [facility] Screening total cholesterol/ high density lipoprotein (HDL) cholesterol ratioOrdered By: Jean Pearson on 03-21-2025 Cholesterol.total/Chol esterol in HDL [Mass ratio] 4.84 {ratio} [facility] Serum creatinine measurement (mass/volume)Ordered By: Jean Pearson on 03-21-2025 Creatinine [Mass/Vol] 0.85 mg/dL 0.70-1.20 [facility] Serum globulin measurementOr dered By: Jean Pearson on 03-21-2025 Globulin (S) [Mass/Vol] 3.2 g/dL 2.2-4.2 [facility] Serum glucose measurement (m ass/volume)Ordered By: Jean Pearson on 03-21-2025 Glucose [Mass/Vol] 98 mg/dL 70-99 [facility] Serum or plasma alanine wright otransferase (ALT) measurementOrdered By: Jean Pearson on 03-21-2025 ALT [Catalytic activity/Vol] 65 U/L High <47 [facility] Serum or plasma albumin mirna urement (mass/volume)Ordered By: Jean Pearson on 03-21-2025 Albumin [Mass/Vol] 4.2 g/dL 3.5-5.0 [facility] Serum or plasma albumin/glob ulin mass ratioOrdered By: Jean Pearson on 03-21-2025 Albumin/Globulin [Mass ratio] 1.3 {ratio} 0.9-2.4 [facility] Serum or plasma alkaline carly sphatase measurementOrdered By: Jean Pearson on 03-21-2025 ALP [Catalytic activity/Vol] 74 U/L 40-129 [facility] Serum or plasma calcium mirna urement (mass/volume)Ordered By: Jean Pearson on 03-21-2025 Calcium [Mass/Vol] 9.2 mg/dL 7.6-11.0 [facility] Serum or plasma cholesterol in HDL measurement (mass/volume)Ordered By: Jean Pearson on 03-21-2025 Cholesterol in HDL [Mass/Vol] 38 mg/dL Low >40 [facility] Comment on above: National Cholesterol Education Program (NCEP) guidelines:<40 mg/dL: Low HDL-cholesterol (major risk factor for CHD)>= 60 mg/dL: High HDL-cholesterol (negative risk factor for CHD)HDL-cholesterol is affected by a number of factors, e.g. smoking, exercise, hormones, sex and age. Serum or plasma cholesterol measurement (mass/volume)Ordered By: Jean Pearson on 03-21-2025 Cholesterol [Mass/Vol] 185 mg/dL <201 [facility] Comment on above: Cholesterol level, D esirable <200 mg/dLBorderline high cholesterol 200-239 mg/dLHigh cholesterol >=240 mg/dLRecommendations of the NCEP Adult Treatment Panel for the following risk-cutoff thresholds for the [place] population. Serum or plasma urea nitroge n measurement (mass/volume)Ordered By: Jean Pearson on 03-21-2025 Urea nitrogen [Mass/Vol] 12 mg/dL 4-19 [facility] Sodium levelOrdered By: Jean Pearson on 03-21-2025 Sodium [Moles/Vol] 140 mmol/L 133-145 [facility] Squamous epithelial cells de tection in urine sediment by light microscopyOrdered By: Jean Pearson on 03-21-2025 Epithelial cells.squamous LM Ql (Urine sed) 0-5 SEEN /hpf 0-5 [facility] Total proteinOrdered By: Jj Pearson on 03-21-2025 Protein [Mass/Vol] 7.4 g/dL 5.9-8.4 [facility] Triglycerides measurementOrd ered By: Jean Pearson on 03-21-2025 Triglyceride [Mass/Vol] 105 mg/dL <199 [facility] Comment on above: The drugs N-Acetylcy steine and Metamizole may falsely depress this assay. Normal range: <150 mg/dLBorderline High: 150-199 mg/dLHigh: 200-499 mg/dLVery High: >500 mg/dL Urinalysis, Completeon 03-21 RBC 0-5 SEEN Normal 0-5 [facility] Comment on above: Order Comment: CLEAN CATCH Performed By: #### L 400.0001 ####[facility] [address] [facility] [id number] BACTERIA 1+ /hpf Normal None Seen [facility] Comment on above: Order Comment: CLEAN CATCH Performed By: #### L 400.0001 ####[facility] [address] [facility] [id number] Mucus Ql (Urine sed) 2+ /hpf Normal [facility] Comment on above: Order Comment: CLEAN CATCH Performed By: #### L 400.0001 ####[facility] [address] [facility] [address] WBC 0-5 SEEN Normal 0-5 [facility] Comment on above: Order Comment: CLEAN CATCH Performed By: #### L 400.0001 ####[facility] [address] [place], [address] EPI,SQUAMOUS 0-5 SEEN Normal 0-5 [facility] Comment on above: Order Comment: CLEAN CATCH Performed By: #### L 400.0001 ####[facility] [address] [place], [address] Urine clarityOrdered By: Jj Pearson on 03-21-2025 Clarity (U) Clear Clear [facility] Urine color determinationOrd ered By: Jean Pearson on 03-21-2025 Color (U) Yellow Yellow [facility] Urine glucose detectionOrder ed By: Jean Pearson on 03-21-2025 Glucose Ql (U) Normal mg/dl Normal [facility] Urine leukocyte esterase det ection by dipstickOrdered By: Jean Pearson on 03-21-2025 Leukocyte esterase Test strip Ql (U) Negative Negative [facility] Urine pHOrdered By: Jean shin on 03-21-2025 pH (U) 5.0 [pH] 5.0 - 8.0 [facility] Urine sediment bacteria coun t by microscopy (number/high power field)Ordered By: Jean Pearson on 03-21-2025 Bacteria LM.HPF (Urine sed) [#/Area] 1 /[HPF] None Seen [facility] Urine specific gravity measu rementOrdered By: Jean Pearson on 03-21-2025 Specific gravity (U) [Rel density] 1.020 1.002-1.030 [facility] Urine urobilinogen measureme ntOrdered By: Jean Pearson on 03-21-2025 Urobilinogen Ql (U) Normal mg/dl Normal [facility] Vitamin D,25 Hydroxyon 03-21 Vitamin D 25-OH 20.6 ng/mL Low 30-100 [facility] Comment on above: Order Comment: Order Date: 12/14/24Order Info: [id number] - CMPOrder Info: [id number] - LIPIDOrder Info: [id number] - MG Result Comment: Blanca min D Status Deficiency: <20 ng/mL (50nmol/L) Insufficiency: 20-30 ng/mL (50-75 nmol/L) Sufficiency: 30-100 ng/mL (75-250 nmol/L) Toxicity: >100 ng/mL (>250 nmol/L) Performed By: #### L 506.1001 ####[facility] [address] [place], [address] White blood cell (WBC) count Ordered By: Jean Pearson on 03-21-2025 WBC (Bld) [#/Vol] 5.0 10*3/uL 4.4-11.0 [facility] White blood cell countOrdere d By: Jean Pearson on 03-21-2025 White blood cell count 0-5 SEEN /hpf 0-5 [facility] CNOVon 08-25-2024 CNOV Office Visit (UCTR ) ESDRAS GRANGER ([id number]) 1970 M Date Time Provider Department 08/25/24 9:15 AM FRANSICO HARRIS [facility] During your visit today, we recorded the following information about you: Temperature Pulse Respiration Blood pressure 96.3 degrees 85/minute 20/minute 140/82 Weight 118.1 kg Fransico Harris MD 08/25/2024 9:37 AM Signed Patient presents with: Cough: Fever x 3 days HPI: Feeling sick starting 3 days ago. Fever, sore throat, sinus pressure, and headache improving. He had productive colored sputum this morning so presents for evaluation. Positive symptoms: Cough, Fever, Chest tightness, Sore throat, Sinus pressure, Nasal Congestion, Rhinorrhea, Fever, Body Aches, Headache, Negative symptoms: Chest pain, OTC: Nyquil MEDICATIONS: Current Outpatient Medications Medication Sig acyclovir (ZOVIRAX) 400 mg tablet Take 1 tablet by mouth three times daily. (Patient not taking: Reported on 04/21/2022) mupirocin (BACTROBAN) 2 % ointment Apply 1 application to affected area three times daily. (Patient not taking: Reported on 04/21/2022) No current facility-administered medications for this visit. ALLERGIES: ALLERGIES No Known Allergies VITALS: BP 140/82 Pulse 85 Temp (!) 35.7 ?C (96.3 ?F) Resp 20 Wt 118.1 kg (260 lb 5.8 oz) SpO2 98% PHYSICAL EXAM: GEN: mildly ill appearing, pleasant, alert HEENT: PERRL, EOMI, conjunctiva clear Ears: canals clear. TMs without erythema, bulge, or effusion Sinuses: non-tender frontal sinus, non-tender maxillary sinuses Throat: moist mucous membranes, mild erythema, no exudate Neck: supple, no thyromegaly, no lymphadenopathy HEART: regular rate, regular rhythm, no murmurs LUNGS: initial wheeze turns clear to auscultation after cough, no crackles, no increased WOB ASSESSMENT/PLAN: 1. Viral URI with cough - ICD9: 465.9, ICD10: J06.9 - suspect viral URI which is improving. - Discussed supportive care treatment with rest, cold medicine, and analgesia. Recommended mucinex DM for bronchitis. Follow up with worsening cough, worsening shortness of breath, increasing chest pain, or late onset fever. Fransico Harris MD Referring Provider: SELF [200] Allergies As of Date: 08/25/2024 (No Known Allergies) Date Reviewed: 08/25/2024 Reviewed by: Lelo Keller MA - Fully Assessed Reason for Visit: Cough [28] Cmt: Fever x 3 days Primary Visit Diagnosis:Viral URI with cough [J06.9] Prescriptions as of 08/25/2024 - acyclovir (ZOVIRAX) 400 mg tablet Take 1 tablet by mouth three times daily. - mupirocin (BACTROBAN) 2 % ointment Apply 1 application to affected area three times daily. Problem List As Of Date 08/25/2024 Noted Resolved CALCULUS OF KIDNEY [N20.0] 04/18/2007 STERILIZATION [Z30.2] 09/04/2007 HEMOPTYSIS [786.3] 10/28/2007 Level of Service: OFFICE/OUTPATIENT ESTABLISHED LOW MDM 20 MIN [77500] Encounter Status:Closed by FRANSICO HARRIS on 08/25/24 Normal [facility] CBC W/Diff, Automatedon 11- Absolute Lymph 1.43 X10 3/uL Normal 0.83-4.51 [facility] Comment on above: Order Comment: Order Date: 05/08/24 Order Info: 0184-1 - CBCD Performed By: #### L 506.1000, L500.4050, L100.0100 #### [facility] [address] [place], [address] Absolute Neut 3.5 X10 3/uL Normal 2.0-7.7 [facility] Comment on above: Order Comment: Order Date: 05/08/24 Order Info: 0184-1 - CBCD Performed By: #### L 506.1000, L500.4050, L100.0100 #### [facility] [address] [place], [address] Basophils/100 WBC (Bld) 0.7 % Normal 0-1 [facility] Comment on above: Order Comment: Order Date: 05/08/24 Order Info: 0184-1 - CBCD Performed By: #### L 506.1000, L500.4050, L100.0100 #### [facility] [address] [place], [address] Eosinophils/100 WBC (Bld) 1.4 % Normal 0-5 [facility] Comment on above: Order Comment: Order Date: 05/08/24 Order Info: 0184-1 - CBCD Performed By: #### L 506.1000, L500.4050, L100.0100 #### [facility] [address] [place], [address] Erythrocyte distribution width (RBC) [Ratio] 12.4 % Normal 11.6-14.6 [facility] Comment on above: Order Comment: Order Date: 05/08/24 Order Info: 0184-1 - CBCD Performed By: #### L 506.1000, L500.4050, L100.0100 #### [facility] [address] [place], [address] Hematocrit (Bld) [Volume fraction] 42.8 % Normal 40-54 [facility] Comment on above: Order Comment: Order Date: 05/08/24 Order Info: 0184- - CBCD Performed By: #### L 506.1000, L500.4050, L100.0100 #### [facility] [address] [place], [address] Hemoglobin (Bld) [Mass/Vol] 14.5 g/dL Normal 13.0-16.5 [facility] Comment on above: Order Comment: Order Date: 05/08/24 Order Info: 0184- - CBCD Performed By: #### L 506.1000, L500.4050, L100.0100 #### [facility] [address] [place], [address] IG% 0.300 Normal 0.0-0.9 [facility] Comment on above: Order Comment: Order Date: 05/08/24 Order Info: 0184- - CBCD Result Comment: IG% - Immature Granulocytes (promyelocytes, myelocytes and metamyelocytes) > 1% indicates that a LEFT SHIFT is Present. Performed By: #### L 506.1000, L500.4050, L100.0100 #### [facility] [address] [place], [address] Lymphocytes/100 WBC (Bld) 24.7 % Normal 19-41 [facility] Comment on above: Order Comment: Order Date: 05/08/24 Order Info: 0184-1 - CBCD Performed By: #### L 506.1000, L500.4050, L100.0100 #### [facility] [address] [place], [address] MCH (RBC) [Entitic mass] 30.5 pg Normal 27.0-32.0 [facility] Comment on above: Order Comment: Order Date: 05/08/24 Order Info: 0184-1 - CBCD Performed By: #### L 506.1000, L500.4050, L100.0100 #### [facility] [address] [place], [address] MCHC (RBC) [Mass/Vol] 33.9 g/dL Normal 32-36 [facility] Comment on above: Order Comment: Order Date: 05/08/24 Order Info: 0184-1 - CBCD Performed By: #### L 506.1000, L500.4050, L100.0100 #### [facility] [address] [place], [address] MCV (RBC) [Entitic vol] 89.9 fL Normal 80-94 [facility] Comment on above: Order Comment: Order Date: 05/08/24 Order Info: 0184-1 - CBCD Performed By: #### L 506.1000, L500.4050, L100.0100 #### [facility] [address] [place], [address] Monocytes/100 WBC (Bld) 11.9 % High 0-10 [facility] Comment on above: Order Comment: Order Date: 05/08/24 Order Info: 0184-1 - CBCD Performed By: #### L 506.1000, L500.4050, L100.0100 #### [facility] [address] [place], [address] Neutrophils/100 WBC (Bld) 61.0 % Normal 47-70 [facility] Comment on above: Order Comment: Order Date: 05/08/24 Order Info: 0184-1 - CBCD Performed By: #### L 506.1000, L500.4050, L100.0100 #### [facility] [address] [place], [address] Nucleated RBC (Bld) [#/Vol] 0 10*3/uL Normal 0-5 [facility] Comment on above: Order Comment: Order Date: 05/08/24 Order Info: 0184-1 - CBCD Performed By: #### L 506.1000, L500.4050, L100.0100 #### [facility] [address] [place], [address] Platelet mean volume (Bld) [Entitic vol] 10.2 fL Normal 6.2-12.0 [facility] Comment on above: Order Comment: Order Date: 05/08/24 Order Info: 0184-1 - CBCD Performed By: #### L 506.1000, L500.4050, L100.0100 #### [facility] [address] [place], [address] Platelets (Bld) [#/Vol] 259 10*3/uL Normal 150-450 [facility] Comment on above: Order Comment: Order Date: 05/08/24 Order Info: 0184-1 - CBCD Performed By: #### L 506.1000, L500.4050, L100.0100 #### [facility] [address] [place], [address] RBC (Bld) [#/Vol] 4.76 10*6/uL Normal 4.6-6.2 [facility] Comment on above: Order Comment: Order Date: 05/08/24 Order Info: 0184-1 - CBCD Performed By: #### L 506.1000, L500.4050, L100.0100 #### [facility] [address] [place], [address] RDW SD 40.9 fl Normal 35.1-43.9 [facility] Comment on above: Order Comment: Order Date: 05/08/24 Order Info: 0184-1 - CBCD Performed By: #### L 506.1000, L500.4050, L100.0100 #### [facility] [address] [place], [address] WBC (Bld) [#/Vol] 5.8 10*3/uL Normal 4.4-11.0 [facility] Comment on above: Order Comment: Order Date: 05/08/24 Order Info: 0184-1 - CBCD Performed By: #### L 506.1000, L500.4050, L100.0100 #### [facility] [address] [place], [address] Comprehensive Metabolic Prof tnon 07-16-2024 Albumin [Mass/Vol] 4.0 g/dL Normal 3.2-5.0 [facility] Comment on above: Order Comment: Order Date: 05/08/24 Order Info: 0786-1 - CMP Performed By: #### L 506.1000, L500.4050, L100.0100 #### [facility] [address] [place], [address] Albumin/Globulin [Mass ratio] 1.2 {ratio} Normal 0.9-2.4 [facility] Comment on above: Order Comment: Order Date: 05/08/24 Order Info: 0786-1 - CMP Performed By: #### L 506.1000, L500.4050, L100.0100 #### [facility] [address] [place], [address] ALK P 70 U/L Normal 45-117 [facility] Comment on above: Order Comment: Order Date: 05/08/24 Order Info: 0786-1 - CMP Performed By: #### L 506.1000, L500.4050, L100.0100 #### [facility] [address] [place], [address] ALT [Catalytic activity/Vol] 48 U/L Normal 16-61 [facility] Comment on above: Order Comment: Order Date: 05/08/24 Order Info: 0786-1 - CMP Performed By: #### L 506.1000, L500.4050, L100.0100 #### [facility] [address] [place], [address] AST [Catalytic activity/Vol] 27 U/L Normal 15-37 [facility] Comment on above: Order Comment: Order Date: 05/08/24 Order Info: 0786-1 - CMP Performed By: #### L 506.1000, L500.4050, L100.0100 #### [facility] [address] [place], [address] Bilirubin [Mass/Vol] 0.60 mg/dL Normal 0.20-1.00 [facility] Comment on above: Order Comment: Order Date: 05/08/24 Order Info: 0786-1 - CMP Result Comment: For patients on eltrombopag therapy, use of Dimension [place] TBIL is not recommended. Performed By: #### L 506.1000, L500.4050, L100.0100 #### [facility] [address] [place], [address] BUN/CRE 15.8 RATIO Normal 10-20 [facility] Comment on above: Order Comment: Order Date: 05/08/24 Order Info: 0786-1 - CMP Performed By: #### L 506.1000, L500.4050, L100.0100 #### [facility] [address] [place], [address] CA,Total 8.9 mg/dL Normal 8.5-10.1 [facility] Comment on above: Order Comment: Order Date: 05/08/24 Order Info: 0786-1 - CMP Performed By: #### L 506.1000, L500.4050, L100.0100 #### [facility] [address] [place], [address] Chloride [Moles/Vol] 105 mmol/L Normal 98-107 [facility] Comment on above: Order Comment: Order Date: 05/08/24 Order Info: 0786-1 - CMP Performed By: #### L 506.1000, L500.4050, L100.0100 #### [facility] [address] [place], [address] CO2 [Moles/Vol] 25.0 mmol/L Normal 21.0-32.0 [facility] Comment on above: Order Comment: Order Date: 05/08/24 Order Info: 0786- - CMP Performed By: #### L 506.1000, L500.4050, L100.0100 #### [facility] [address] [place], [address] Creatinine [Mass/Vol] 0.88 mg/dL Normal 0.70-1.30 [facility] Comment on above: Order Comment: Order Date: 05/08/24 Order Info: 0786- - CMP Result Comment: The validity of the calculated GFR GFRAA in patients over 70 years has not been determined. Clinical correlation is essential. Performed By: #### L 506.1000, L500.4050, L100.0100 #### [facility] [address] [place], [address] EST GFR - AA 116 mL/min Normal >60 [facility] Comment on above: Order Comment: Order Date: 05/08/24 Order Info: 0786- - CMP Result Comment: Afri can Chinese GFR Calc Performed By: #### L 506.1000, L500.4050, L100.0100 #### [facility] [address] [place], [address] GAP 7 Normal 5-15 [facility] Comment on above: Order Comment: Order Date: 05/08/24 Order Info: 0786- - CMP Performed By: #### L 506.1000, L500.4050, L100.0100 #### [facility] [address] [place], [address] GFR/1.73 sq M.predicted among non-blacks MDRD (S/P/Bld) [Vol rate/Area] 96 mL/min/{1.73_m2} Normal >60 [facility] Comment on above: Order Comment: Order Date: 05/08/24 Order Info: 0786-1 - CMP Result Comment: Non- GFR Calc Performed By: #### L 506.1000, L500.4050, L100.0100 #### [facility] [address] [place], [address] Globulin (S) [Mass/Vol] 3.3 g/dL Normal 2.2-4.2 [facility] Comment on above: Order Comment: Order Date: 05/08/24 Order Info: 0786-1 - CMP Performed By: #### L 506.1000, L500.4050, L100.0100 #### [facility] [address] [place], [address] Glucose [Mass/Vol] 96 mg/dL Normal 74-106 [facility] Comment on above: Order Comment: Order Date: 05/08/24 Order Info: 0786-1 - CMP Performed By: #### L 506.1000, L500.4050, L100.0100 #### [facility] [address] [place], [address] Potassium [Moles/Vol] 3.8 mmol/L Normal 3.5-5.1 [facility] Comment on above: Order Comment: Order Date: 05/08/24 Order Info: 0786-1 - CMP Performed By: #### L 506.1000, L500.4050, L100.0100 #### [facility] [address] [place], [address] Sodium [Moles/Vol] 138 mmol/L Normal 136-145 [facility] Comment on above: Order Comment: Order Date: 05/08/24 Order Info: 0786-1 - CMP Performed By: #### L 506.1000, L500.4050, L100.0100 #### [facility] [address] [place], [address] T PROT 7.3 g/dL Normal 6.4-8.2 [facility] Comment on above: Order Comment: Order Date: 05/08/24 Order Info: 0786-1 - CMP Performed By: #### L 506.1000, L500.4050, L100.0100 #### [facility] [address] [place], [address] Urea nitrogen [Mass/Vol] 14 mg/dL Normal 7-18 [facility] Comment on above: Order Comment: Order Date: 05/08/24 Order Info: 0786-1 - CMP Performed By: #### L 506.1000, L500.4050, L100.0100 #### [facility] [address] [place], [address] Vitamin D,25 Hydroxyon 07-16 Vitamin D 25-OH 17.9 ng/mL Normal [facility] Comment on above: Order Comment: Order Date: 05/08/24 Order Info: [id number] - VITD25 Result Comment: Blanca min D 25(OH) Status Range Deficiency <20 ng/mL (50nmol/L) Insufficiency 20 - 30 ng/mL (50 - 75 nmol/L) Sufficiency 30 - 100 ng/mL (75 - 250 nmol/L) Toxicity >100 ng/mL (>250 nmol/L) Performed By: #### L 506.1000, L500.4050, L100.0100 #### [facility] [address] [place], [address] Colonoscopy Reporton Colonoscopy Report [facility] Medical Records Department [address] [place] [address] Colonoscopy Report MR#: [id number] Acct: [id number] Name: ESDRAS GRANGER JrMode Rep #: [id number] : 1970 53 From: Stiven Iglesias DO PCP: Dr. Jean Pearson MD Status:REG [facility] [place] Patient Name: Esdras Granger Procedure Date: 07/09/2024 6:34 AM Date of : 1970 Age: 53 Procedure: Colonoscopy Indications: Screening for colorectal malignant neoplasm Providers: Stiven Iglesias DO Medicines: Monitored Anesthesia Care Patient Profile: This is a 53 year old male. Refer to note in patient chart for documentation of history and physical. Last Colonoscopy: none. The patient's first colonoscopy is today. Complications: No immediate complications. Procedure: Pre-Anesthesia Assessment: - Prior to the procedure, a History and Physical was performed, and patient medications and allergies were reviewed. The patient is competent. The risks and benefits of the procedure and the sedation options and risks were discussed with the patient. All questions were answered and informed consent was obtained. Patient identification and proposed procedure were verified by the physician in the pre-procedure area. Mental Status Examination: alert and oriented. Airway Examination: normal oropharyngeal airway and neck mobility. Respiratory Examination: clear to auscultation. CV Examination: normal. Prophylactic Antibiotics: The patient does not require prophylactic antibiotics. Prior Anticoagulants: The patient has taken no anticoagulant or antiplatelet agents except for NSAID medication. ASA Grade Assessment: II - A patient with mild systemic disease. After reviewing the risks and benefits, the patient was deemed in satisfactory condition to undergo the procedure. The anesthesia plan was to use monitored anesthesia care (MAC). Immediately prior to administration of medications, the patient was re-assessed for adequacy to receive sedatives. The heart rate, respiratory rate, oxygen saturations, blood pressure, adequacy of pulmonary ventilation, and response to care were monitored throughout the procedure. The physical status of the patient was re-assessed after the procedure. After I obtained informed consent, the scope was passed under direct vision. Throughout the procedure, the patient's blood pressure, pulse, and oxygen saturations were monitored continuously. The colonoscope was introduced through the anus and advanced to the cecum, identified by appendiceal orifice and ileocecal valve. The colonoscopy was performed without difficulty. The patient tolerated the procedure well. The quality of the bowel preparation was adequate. The ileocecal valve, appendiceal orifice, and rectum were photographed. Scope In: 6:47:57 AM Scope Withdrawal Time 0 hours 9 minutes 1 second Scope Out: 6:59:41 AM Total Procedure Duration Time 0 hours 11 minutes 44 seconds Findings: The perianal and digital rectal examinations were normal. A few small-mouthed diverticula were found in the recto-sigmoid colon and sigmoid colon. The exam was otherwise without abnormality on direct and retroflexion views. Impression: - Diverticulosis in the recto-sigmoid colon and in the sigmoid colon. - The examination was otherwise normal on direct and retroflexion views. - No specimens collected. Recommendation: - Discharge patient to home. - Resume previous diet. - Continue present medications. - Repeat colonoscopy in 10 years for screening purposes. Procedure Code(s): --- Professional --- G0121, Colorectal cancer screening; colonoscopy on individual not meeting criteria for high risk CPT copyright 2021 [employer]. All rights reserved. The codes documented in this report are preliminary and upon retail customer service specialist review may be revised to meet current compliance requirements. Stiven Iglesias DO 07/09/2024 7:04:08 AM This report has been signed electronically. Number of Addenda: 0 Note Initiated On: 07/09/2024 6:34 AM 07/09/24703 Date Stiven Iglesias DO Cosign Signature: Date (if indicated) CC: Dr. Jean Pearson MD; Stiven Iglesias DO Date Dictated: 07/09/24633 Date Transcribed: Cna Caregiver: PRICILLA Signed [facility] MR/POSTOP.Laurent 07-09-2024 MR/POSTOP.[facility] Medical Records Department [address] [place] [address] Anesthesia Postop Eval I 07/09/24708 MR#: [id number] Acct: [id number] Name: ESDRAS GRANGER JrMode Rep #: [id number] : 1970 53 From: Cornel Ribeiro PCP: Dr. Jean Pearson MD Status:REG SDC Y Race: C Location: [place] [address] Anesthesia: Postop Eval I Current Vital Signs Temperature: 97.8 F Pulse Rate: 66 Blood Pressure: 98/65 Respiratory Rate: 16 Pulse Ox: 96 Oxygen Delivery Method: Room Air Assessment Airway patent: Yes Spontaneous unlabored respirations: Yes Mental status: Asleep nausea: No Vomiting: No Anesthesia Complication: No Fluid Hydration Crystalloid volume administer (ml): 40 Total IV fluid infused: 40 Progress Note Anesthesia document: Postop Eval 1 completed: Yes 07/09/24708 Date Cornel Goldsmith Signature: Date CC: Signed Normal [facility] MR/[id number] 07-09-2024 [facility] Medical Records Department [address] [place] [address] Anesthesia Postop Eval II 07/09/24 08 MR#: [id number] Acct: [id number] Name: ESDRAS GRANGER Rep #: [id number] : 1970 53 From: Yobani Mckay MD PCP: Dr. Jean Pearson MD Status:[facility] Y Race: C Location: EN Anesthesia Postop Eval I Sum Postop Eval Completion status Anesthesia document: Postop Eval 1 completed: Yes Anesthesia Postop Eval I Summary Anesthesia Postop Eval I Summary: Anesthesia Postop Eval I: Assessment Summary Airway patent Yes 07/09/24 07:09 [email or web address] Spontaneous unlabored Yes 07/09/24 07:09 [email or web address] respirations Mental status Asleep 07/09/24 07:09 [email or web address] nausea No 07/09/24 07:09 [email or web address] Vomiting No 07/09/24 07:09 [email or web address] Anesthesia Postop Eval I: Fluid Summary Crystalloid volume administer 40 07/09/24 07:09 [email or web address] (ml) Colloids volume administered ( ml) Blood Product volume administered (ml) Total IV fluid infused 40 07/09/24 07:09 [email or web address] Anesthesia Postop Eval I: Summary Notes Anesthesia Complication No 07/09/24 07:09 [email or web address] Anesthesia Complication Comment: Post-operative progress note Anesthesia: Postop Eval II Evaluation Mental status: Awake Pain Level: 0 nausea: No Vomiting: No 07/09/24 0817 Date Yobani Goldsmith Signature: Date CC: Signed Normal [facility] CBC W/Diff, Automatedon 08-0 -2023 Absolute Lymph 1.61 X10 3/uL Normal 0.83-4.51 [facility] Comment on above: Order Comment: Order Date: 04/06/24Order Info: [id number] - CBCD Performed By: #### L 100.0100, L500.4050, L500.4100, L501.5200 ####[facility] [address] [place], [place], [id number] Absolute Neut 2.4 X10 3/uL Normal 2.0-7.7 [facility] Comment on above: Order Comment: Order Date: 04/06/24Order Info: [id number] - CBCD Performed By: #### L 100.0100, L500.4050, L500.4100, L501.5200 ####[facility] [address] [place], [address] Basophils/100 WBC (Bld) 0.8 % Normal 0-1 [facility] Comment on above: Order Comment: Order Date: 04/06/24Order Info: [id number] - CBCD Performed By: #### L 100.0100, L500.4050, L500.4100, L501.5200 ####[facility] [address] [place], [address] Eosinophils/100 WBC (Bld) 2.2 % Normal 0-5 [facility] Comment on above: Order Comment: Order Date: 04/06/24Order Info: [id number] - CBCD Performed By: #### L 100.0100, L500.4050, L500.4100, L501.5200 ####[facility] [address] [place], [address] Erythrocyte distribution width (RBC) [Ratio] 12.7 % Normal 11.6-14.6 [facility] Comment on above: Order Comment: Order Date: 04/06/24Order Info: [id number] - CBCD Performed By: #### L 100.0100, L500.4050, L500.4100, L501.5200 ####[facility] [address] [place], [address] Hematocrit (Bld) [Volume fraction] 43.6 % Normal 40-54 [facility] Comment on above: Order Comment: Order Date: 04/06/24Order Info: [id number] - CBCD Performed By: #### L 100.0100, L500.4050, L500.4100, L501.5200 ####[facility] [address] [place], [address] Hemoglobin (Bld) [Mass/Vol] 14.8 g/dL Normal 13.0-16.5 [facility] Comment on above: Order Comment: Order Date: 04/06/24Order Info: [id number] - CBCD Performed By: #### L 100.0100, L500.4050, L500.4100, L501.5200 ####[facility] [address] [place], [address] IG% 0.200 Normal 0.0-0.9 [facility] Comment on above: Order Comment: Order Date: 04/06/24Order Info: [id number] - CBCD Result Comment: IG% - Immature Granulocytes (promyelocytes, myelocytes and metamyelocytes) > 1% indicates that a LEFT SHIFT is Present. Performed By: #### L 100.0100, L500.4050, L500.4100, L501.5200 ####[facility] [address] [place], [address] Lymphocytes/100 WBC (Bld) 32.5 % Normal 19-41 [facility] Comment on above: Order Comment: Order Date: 04/06/24Order Info: 018-1 - CBCD Performed By: #### L 100.0100, L500.4050, L500.4100, L501.5200 ####[facility] [address] [place], [address] MCH (RBC) [Entitic mass] 30.6 pg Normal 27.0-32.0 [facility] Comment on above: Order Comment: Order Date: 04/06/24Order Info: 0184- - CBCD Performed By: #### L 100.0100, L500.4050, L500.4100, L501.5200 ####[facility] [address] [place], [address] MCHC (RBC) [Mass/Vol] 33.9 g/dL Normal 32-36 [facility] Comment on above: Order Comment: Order Date: 04/06/24Order Info: [id number] - CBCD Performed By: #### L 100.0100, L500.4050, L500.4100, L501.5200 ####[facility] [address] [place], [address] MCV (RBC) [Entitic vol] 90.3 fL Normal 80-94 [facility] Comment on above: Order Comment: Order Date: 04/06/24Order Info: [id number] - CBCD Performed By: #### L 100.0100, L500.4050, L500.4100, L501.5200 ####[facility] [address] [place], [address] Monocytes/100 WBC (Bld) 16.0 % High 0-10 [facility] Comment on above: Order Comment: Order Date: 04/06/24Order Info: 018-1 - CBCD Performed By: #### L 100.0100, L500.4050, L500.4100, L501.5200 ####[facility] [address] [place], [address] Neutrophils/100 WBC (Bld) 48.3 % Normal 47-70 [facility] Comment on above: Order Comment: Order Date: 04/06/24Order Info: 183- - CBCD Performed By: #### L 100.0100, L500.4050, L500.4100, L501.5200 ####[facility] [address] [place], [address] Nucleated RBC (Bld) [#/Vol] 0 10*3/uL Normal 0-5 [facility] Comment on above: Order Comment: Order Date: 04/06/24Order Info: 018- - CBCD Performed By: #### L 100.0100, L500.4050, L500.4100, L501.5200 ####[facility] [address] [place], [address] Platelet mean volume (Bld) [Entitic vol] 9.9 fL Normal 6.2-12.0 [facility] Comment on above: Order Comment: Order Date: 04/06/24Order Info: [id number] - CBCD Performed By: #### L 100.0100, L500.4050, L500.4100, L501.5200 ####[facility] [address] [place], [address] Platelets (Bld) [#/Vol] 271 10*3/uL Normal 150-450 [facility] Comment on above: Order Comment: Order Date: 04/06/24Order Info: [id number] - CBCD Performed By: #### L 100.0100, L500.4050, L500.4100, L501.5200 ####[facility] [address] [place], [address] RBC (Bld) [#/Vol] 4.83 10*6/uL Normal 4.6-6.2 [facility] Comment on above: Order Comment: Order Date: 04/06/24Order Info: [id number] - CBCD Performed By: #### L 100.0100, L500.4050, L500.4100, L501.5200 ####[facility] [address] [place], [address] RDW SD 41.9 fl Normal 35.1-43.9 [facility] Comment on above: Order Comment: Order Date: 04/06/24Order Info: 0184- - CBCD Performed By: #### L 100.0100, L500.4050, L500.4100, L501.5200 ####[facility] [address] [place], [address] WBC (Bld) [#/Vol] 5.0 10*3/uL Normal 4.4-11.0 [facility] Comment on above: Order Comment: Order Date: 04/06/24Order Info: 0184- - CBCD Performed By: #### L 100.0100, L500.4050, L500.4100, L501.5200 ####[facility] [address] [place], [address] Comprehensive Metabolic Prof ilon 04-06-2024 Albumin [Mass/Vol] 3.8 g/dL Normal 3.2-5.0 [facility] Comment on above: Order Comment: Order Date: 04/06/24Order Info: [id number] - CMPOrder Info: [id number] - LIPIDOrder Info: [id number] - MG Performed By: #### L 100.0100, L500.4050, L500.4100, L501.5200 ####[facility] [address] [place], [address] Albumin/Globulin [Mass ratio] 1.0 {ratio} Normal 0.9-2.4 [facility] Comment on above: Order Comment: Order Date: 04/06/24Order Info: [id number] - CMPOrder Info: [id number] - LIPIDOrder Info: [id number] - MG Performed By: #### L 100.0100, L500.4050, L500.4100, L501.5200 ####[facility] [address] [place], [address] ALK P 58 U/L Normal 45-117 [facility] Comment on above: Order Comment: Order Date: 04/06/24Order Info: [id number] - CMPOrder Info: [id number] - LIPIDOrder Info: [id number] - MG Performed By: #### L 100.0100, L500.4050, L500.4100, L501.5200 ####[facility] [address] [place], [address] ALT [Catalytic activity/Vol] 79 U/L High 16-61 [facility] Comment on above: Order Comment: Order Date: 04/06/24Order Info: [id number] - CMPOrder Info: [id number] - LIPIDOrder Info: [id number] - MG Performed By: #### L 100.0100, L500.4050, L500.4100, L501.5200 ####[facility] [address] [place], [address] AST [Catalytic activity/Vol] 47 U/L High 15-37 [facility] Comment on above: Order Comment: Order Date: 04/06/24Order Info: [id number] - CMPOrder Info: [id number] - LIPIDOrder Info: [id number] - MG Performed By: #### L 100.0100, L500.4050, L500.4100, L501.5200 ####[facility] [address] [place], [address] Bilirubin [Mass/Vol] 0.80 mg/dL Normal 0.20-1.00 [facility] Comment on above: Order Comment: Order Date: 04/06/24Order Info: [id number] - CMPOrder Info: [id number] - LIPIDOrder Info: [id number] - MG Result Comment: For patients on eltrombopag therapy, use of Dimension [place] TBIL is not recommended. Performed By: #### L 100.0100, L500.4050, L500.4100, L501.5200 ####[facility] [address] [place], [address] BUN/CRE 16.8 RATIO Normal 10-20 [facility] Comment on above: Order Comment: Order Date: 04/06/24Order Info: [id number] - CMPOrder Info: [id number] - LIPIDOrder Info: [id number] - MG Performed By: #### L 100.0100, L500.4050, L500.4100, L501.5200 ####[facility] [address] [place], [address] CA,Total 9.2 mg/dL Normal 8.5-10.1 [facility] Comment on above: Order Comment: Order Date: 04/06/24Order Info: [id number] - CMPOrder Info: [id number] - LIPIDOrder Info: [id number] - MG Performed By: #### L 100.0100, L500.4050, L500.4100, L501.5200 ####[facility] [address] [place], [address] Chloride [Moles/Vol] 107 mmol/L Normal 98-107 [facility] Comment on above: Order Comment: Order Date: 04/06/24Order Info: [id number] - CMPOrder Info: [id number] - LIPIDOrder Info: [id number] - MG Performed By: #### L 100.0100, L500.4050, L500.4100, L501.5200 ####[facility] [address] [place], [address] CO2 [Moles/Vol] 25.0 mmol/L Normal 21.0-32.0 [facility] Comment on above: Order Comment: Order Date: 04/06/24Order Info: [id number] - CMPOrder Info: [id number] - LIPIDOrder Info: [id number] - MG Performed By: #### L 100.0100, L500.4050, L500.4100, L501.5200 ####[facility] [address] [place], [address] Creatinine [Mass/Vol] 0.95 mg/dL Normal 0.70-1.30 [facility] Comment on above: Order Comment: Order Date: 04/06/24Order Info: [id number] - CMPOrder Info: [id number] - LIPIDOrder Info: [id number] - MG Result Comment: The validity of the calculated GFR GFRAA in patients over 70 years has not been determined. Clinical correlation is essential. Performed By: #### L 100.0100, L500.4050, L500.4100, L501.5200 ####[facility] [address] [place], [address] EST GFR - AA 107 mL/min Normal >60 [facility] Comment on above: Order Comment: Order Date: 04/06/24Order Info: [id number] - CMPOrder Info: [id number] - LIPIDOrder Info: [id number] - MG Result Comment: Afri can Chinese GFR Calc Performed By: #### L 100.0100, L500.4050, L500.4100, L501.5200 ####[facility] [address] [place], [address] GAP 5 Normal 5-15 [facility] Comment on above: Order Comment: Order Date: 04/06/24Order Info: [id number]- - CMPOrder Info: [id number] - LIPIDOrder Info: [id number] - MG Performed By: #### L 100.0100, L500.4050, L500.4100, L501.5200 ####[facility] [address] [place], [address] GFR/1.73 sq M.predicted among non-blacks MDRD (S/P/Bld) [Vol rate/Area] 88 mL/min/{1.73_m2} Normal >60 [facility] Comment on above: Order Comment: Order Date: 04/06/24Order Info: [id number]- - CMPOrder Info: [id number] - LIPIDOrder Info: [id number] - MG Result Comment: Non- GFR Calc Performed By: #### L 100.0100, L500.4050, L500.4100, L501.5200 ####[facility] [address] [place], [address] Globulin (S) [Mass/Vol] 3.8 g/dL Normal 2.2-4.2 [facility] Comment on above: Order Comment: Order Date: 04/06/24Order Info: [id number]- - CMPOrder Info: [id number] - LIPIDOrder Info: [id number] - MG Performed By: #### L 100.0100, L500.4050, L500.4100, L501.5200 ####[facility] [address] [place], [address] Glucose [Mass/Vol] 99 mg/dL Normal 74-106 [facility] Comment on above: Order Comment: Order Date: 04/06/24Order Info: [id number]- - CMPOrder Info: [id number] - LIPIDOrder Info: [id number] - MG Performed By: #### L 100.0100, L500.4050, L500.4100, L501.5200 ####[facility] [address] [place], [address] Potassium [Moles/Vol] 3.9 mmol/L Normal 3.5-5.1 [facility] Comment on above: Order Comment: Order Date: 04/06/24Order Info: [id number] - CMPOrder Info: [id number] - LIPIDOrder Info: [id number] - MG Performed By: #### L 100.0100, L500.4050, L500.4100, L501.5200 ####[facility] [address] [place], [address] Sodium [Moles/Vol] 137 mmol/L Normal 136-145 [facility] Comment on above: Order Comment: Order Date: 04/06/24Order Info: 07-1 - CMPOrder Info: [id number] - LIPIDOrder Info: [id number] - MG Performed By: #### L 100.0100, L500.4050, L500.4100, L501.5200 ####[facility] [address] [place], [address] T PROT 7.6 g/dL Normal 6.4-8.2 [facility] Comment on above: Order Comment: Order Date: 04/06/24Order Info: [id number] - CMPOrder Info: [id number] - LIPIDOrder Info: [id number] - MG Performed By: #### L 100.0100, L500.4050, L500.4100, L501.5200 ####[facility] [address] [place], [address] Urea nitrogen [Mass/Vol] 16 mg/dL Normal 7-18 [facility] Comment on above: Order Comment: Order Date: 04/06/24Order Info: [id number] - CMPOrder Info: [id number] - LIPIDOrder Info: [id number] - MG Performed By: #### L 100.0100, L500.4050, L500.4100, L501.5200 ####[facility] [address] [place], [address] Lipid Profileon 04-06-2024 Cholesterol [Mass/Vol] 182 mg/dL Normal 200 [facility] Comment on above: Order Comment: Order Date: 04/06/24Order Info: [id number] - CMPOrder Info: [id number] - LIPIDOrder Info: [id number] - MG Result Comment: <200 mg/dL Desirable 200-240 mg/dL Borderline >240 mg/dL High Risk Performed By: #### L 100.0100, L500.4050, L500.4100, L501.5200 ####[facility] [address] [place], [address] Cholesterol in HDL [Mass/Vol] 37 mg/dL Low [facility] Comment on above: Order Comment: Order Date: 04/06/24Order Info: [id number]- - CMPOrder Info: [id number] - LIPIDOrder Info: [id number] - MG Result Comment: The drugs N-Acetylcysteine and Metamizole may falsely depress this assay. Reference Range HDL <40 mg/dL Low HDL Cholesterol HDL >or= 60 mg/dL High HDL Cholesterol Performed By: #### L 100.0100, L500.4050, L500.4100, L501.5200 ####[facility] [address] [place], [address] Cholesterol in LDL [Mass/Vol] 123 mg/dL Normal 0-130 [facility] Comment on above: Order Comment: Order Date: 04/06/24Order Info: 07- - CMPOrder Info: [id number] - LIPIDOrder Info: [id number] - MG Performed By: #### L 100.0100, L500.4050, L500.4100, L501.5200 ####[facility] [address] [place], [address] Cholesterol in VLDL [Mass/Vol] 22 mg/dL Normal 5-40 [facility] Comment on above: Order Comment: Order Date: 04/06/24Order Info: 07-1 - CMPOrder Info: [id number] - LIPIDOrder Info: [id number] - MG Performed By: #### L 100.0100, L500.4050, L500.4100, L501.5200 ####[facility] [address] [place], [address] Triglyceride [Mass/Vol] 111 mg/dL Normal [facility] Comment on above: Order Comment: Order Date: 04/06/24Order Info: [id number] - CMPOrder Info: [id number] - LIPIDOrder Info: [id number] - MG Result Comment: The drugs N-Acetylcysteine and Metamizole may falsely depress this assay. Serum Triglycerides Reference Interval Normal <150 mg/dL Borderline high 150 - 199 mg/dL High 200 - 499 mg/dL Very High > or = 500 mg/dL Performed By: #### L 100.0100, L500.4050, L500.4100, L501.5200 ####[facility] [address] [place], [address] Magnesiumon 04-06-2024 Magnesium [Mass/Vol] 2.3 mg/dL Normal 1.6-2.6 [facility] Comment on above: Order Comment: Order Date: 04/06/24Order Info: [id number] - CMPOrder Info: [id number] - LIPIDOrder Info: [id number] - MG Performed By: #### L 100.0100, L500.4050, L500.4100, L501.5200 ####[facility] [address] [place], [address] Urinalysis, Completeon 04-06 BACTERIA 1+ /hpf Normal None Seen [facility] Comment on above: Order Comment: CLEAN CATCH Performed By: #### L 400.0001 ####[facility] [address] [place], [address] EPI,SQUAMOUS 0-5 SEEN Normal 0-5 [facility] Comment on above: Order Comment: CLEAN CATCH Performed By: #### L 400.0001 ####[facility] [address] [place], [place], [address] Mucus Ql (Urine sed) 2+ /hpf Normal [facility] Comment on above: Order Comment: CLEAN CATCH Performed By: #### L 400.0001 ####[facility] [address] [place], [address] RBC 0 SEEN Normal 0-5 [facility] Comment on above: Order Comment: CLEAN CATCH Performed By: #### L 400.0001 ####[facility] [address] [place], [address] WBC 0 SEEN Normal 0-5 [facility] Comment on above: Order Comment: CLEAN CATCH Performed By: #### L 400.0001 ####[facility] [address] [place], [address] Vitamin D,25 Hydroxyon 04-06 Vitamin D 25-OH 23.5 ng/mL Normal [facility] Comment on above: Order Comment: Order Date: 04/06/24 Order Info: [id number] - VITD25 Result Comment: Blanca min D 25(OH) Status Range Deficiency <20 ng/mL (50nmol/L) Insufficiency 20 - 30 ng/mL (50 - 75 nmol/L) Sufficiency 30 - 100 ng/mL (75 - 250 nmol/L) Toxicity >100 ng/mL (>250 nmol/L) Performed By: #### L 506.1000 #### [facility] [address] [place], [address] CNOVon 02-25-2024 [facility] ESDRAS GRANGER ([id number]) 1970 M Date Time Provider Department 02/25/24 9:30 AM WALKER GAVIRIA UCWSTR During your visit today, we recorded the following information about you: Temperature Pulse Respiration Blood pressure 97.6 degrees 71/minute 20/minute 144/84 Weight 127 kg PatriciaGianni revelesHILDA summers.ASSEMBLER ENGINE 02/25/2024 10:43 AM Signed Subjective HPI Nontoxic-appearing [...] Laterality Date APPENDECTOMY 1984 F ESWL UNILATERAL 2008 Rt kidney stone LAPAROSCOPY SURG CHOLECYSTECTOMY 09/06/2012 Cholecystectomy, lap LASIK 2000 [place] ALLERGIES Patient has no known allergies. MEDICATIONS [...] of care. This note was generated using [employer] software. It may contain errors in wording, punctuation, or spelling. Walker Gaviria APRN.ASSEMBLER ENGINE Allergies As of Date: 02/25/2024 (No Known Allergies) Date Reviewed: 02/25/2024 Reviewed by: Walker Gaviria APRN.ASSEMBLER ENGINE - Fully Assessed Reason for Visit: Pain (foot) [760] Cmt: R heel, slipped and landed on heel, unable to bear weight (more content not included)... Normal [facility] XR FOOT 3V AP/LAT/OBL RTon 0 [...] over the foot. No fractures are identified Cna Caregiver: VANESA Transcribe Date/Time: Feb 25 2024 10:03A Dictated by : VICENTE HUMPHRIES DO This examination was interpreted and the report reviewed and electronically signed by: VICENTE HUMPHRIES DO on Feb 25 2024 10:05AM EST [id number] N Normal [facility] XR Foot - right AP and Later al and obliqueon 02-25-2024 IMPRESSION: Moderate soft tissue swelling over the foot. No fractures are identified Cna Caregiver: VANESA Transcribe Date/Time: Feb 25 2024 10:03A [...] over the foot DIVISION OF RADIOLOGY Provider, Jacky Hummel - 02/25/2024 * * *Final Report* * [...] over the foot. No fractures are identified Cna Caregiver: PSCB Transcribe Date/Time: Feb 25 2024 10:03A Dictated by : VICENTE HUMPHRIES DO This examination was interpreted and the report reviewed and electronically signed by: VICENTE HUMPHRIES DO on Feb 25 2024 10:05AM EST [facility] Radiology Study observation (narrative) [facility] XR Foot - right AP and Later al and obliqueOrdered By: Ccf Provider on 02-25-2024 [facility] Basophil percentageOrdered B y: Dr. Pearson on 01-28-2023 Bilirubin [Mass/Vol] 0.70 mg/dL 0.20-1.00 [facility] Comment on above: For patients on eltr ombopag therapy, use of Dimension [place] TBIL is not recommended. Chloride [Moles/Vol] 105 mmol/L 98-107 [facility] Cholesterol [Mass/Vol] 179 mg/dL <200 [facility] Comment on above: <200 mg/dL Desirable 200-240 mg/dL Borderline >240 mg/dL High Risk Glucose [Mass/Vol] 91 mg/dL 74-106 [facility] Potassium [Moles/Vol] 4.0 mmol/L 3.5-5.1 [facility] Protein [Mass/Vol] 7.9 g/dL 6.4-8.2 [facility] Sodium [Moles/Vol] 138 mmol/L 136-145 [facility] Triglyceride [Mass/Vol] 102 mg/dL <199 [facility] Comment on above: The drugs N-Acetylcy steine and Metamizole may falsely depress this assay.Serum Triglycerides Reference Interval Normal <150 mg/dL Borderline high 150 - 199 mg/dL High 200 - 499 mg/dL Very High > or = 500 mg/dL Laboratory - Chemistry and C hemistry - challengeOrdered By: Dr. Pearson on 01-28-2023 ALP [Catalytic activity/Vol] 78 U/L 45-117 [facility] ALT [Catalytic activity/Vol] 67 U/L 16-61 [facility] CO2 [Moles/Vol] 25.0 mmol/L 21.0-32.0 [facility] Cobalamin (Vitamin B12) [Mass/Vol] 434 pg/mL 211-911 [facility] Free T4 [Mass/Vol] 0.85 ng/dL 0.76-1.46 [facility] Globulin (S) [Mass/Vol] 4.0 g/dL 2.2-4.2 [facility] Urea nitrogen/Creatinine [Mass ratio] 18.4 mg/mg 10-20 [facility] No Panel InformationOrdered By: Dr. Pearson on 01-28-2023 Estimated GFR (MDRD) Amer 120 mL/min >60 [facility] Comment on above: GFR Calc Estimated GFR (MDRD) Non-Af Amer 99 mL/min >60 [facility] Comment on above: Non- GFR Calc Hepatitis C Antibody Non-Reactive Nonreactive [facility] Comment on above: Non Reactive: < 0.8 Equivocal: >/= 0.8 to < 1.0 Reactive: >/= 1.0The CDC recommends that a reactive/equivocal HCV antibody result be followed up by the HCV Nucleic Acid Amplificationtest (267073) Thyroid Stimulating Hormone (TSH) 1.98 uIU/mL 0.358-3.74 [facility] Vitamin D 25-Hydroxy 24.0 ng/mL [facility] Comment on above: Vitamin D 25(OH) Sta tus Range Deficiency <20 ng/mL (50nmol/L) Insufficiency 20 - 30 ng/mL (50 - 75 nmol/L) Sufficiency 30 - 100 ng/mL (75 - 250 nmol/L) Toxicity >100 ng/mL (>250 nmol/L) Serum hepatitis B virus surf alonso antibody IgG detectionOrdered By: Dr. Pearson on 01-28-2023 HBV surface IgG Ql (S) Non-Reactive [facility] Comment on above: Non Reactive: Incons istent with immunity less than <10 mIU/mL Reactive: Consistent with immunity greater than or equal to 10 mIU/mL Serum or plasma albumin mirna urement (mass/volume)Ordered By: Dr. Pearson on 01-28-2023 Albumin [Mass/Vol] 3.9 g/dL 3.2-5.0 [facility] Serum or plasma albumin/glob ulin mass ratioOrdered By: Dr. Pearson on 01-28-2023 Albumin/Globulin [Mass ratio] 1.0 {ratio} 0.9-2.4 [facility] Serum or plasma calcium mirna urement (mass/volume)Ordered By: Dr. Pearson on 01-28-2023 Calcium [Mass/Vol] 9.0 mg/dL 8.5-10.1 [facility] Serum or plasma cholesterol in HDL measurement (mass/volume)Ordered By: Dr. Pearson on 01-28-2023 Cholesterol in HDL [Mass/Vol] 37 mg/dL >40 [facility] Comment on above: The drugs N-Acetylcy steine and Metamizole may falsely depress this assay. Reference Range HDL <40 mg/dL Low HDL Cholesterol HDL >or= 60 mg/dL High HDL Cholesterol Serum or plasma cholesterol in VLDL measurement (mass/volume)Ordered By: Dr. Pearson on 01-28-2023 Cholesterol in VLDL [Mass/Vol] 20 mg/dL 5-40 [facility] Serum or plasma creatinine m easurement (mass/volume)Ordered By: Dr. Pearson on 01-28-2023 Creatinine [Mass/Vol] 0.87 mg/dL 0.70-1.30 [facility] Comment on above: The validity of the calculated GFR & GFRAA in patients over 70 years has not been determined. Clinical correlation is essential. Serum or plasma low density lipoprotein (LDL) cholesterol measurement (mass/volume)Ordered By: Dr. Pearson on 01-28-2023 Cholesterol in LDL [Mass/Vol] 122 mg/dL 0-130 [facility] Serum or plasma urea nitroge n measurement (mass/volume)Ordered By: Dr. Pearson on 01-28-2023 Urea nitrogen [Mass/Vol] 16 mg/dL 7-18 [facility] Thin prep Papanicolaou smear with manual screeningOrdered By: Dr. Pearson on 01-28-2023 Thin prep Papanicolaou smear with manual screening 39 U/L 15-37 [facility] Thin prep Papanicolaou smear with manual screening 8 5-15 [facility] XR DIGIT GENERAL 3V FRONTAL/ LAT/OBL RIGHTon 04-21-2022 [facility] XR Finger - right AP and Lat eral and obliqueon 04-21-2022 IMPRESSION: No acute fracture or dislocation. Cna Caregiver: PSCMurray Transcribe Date/Time: Apr 21 2022 8:07P Dictated by : BOB CONTE MD This examination was interpreted and the report reviewed and electronically signed by: BOB CONTE MD on Apr 21 2022 8:10PM [facility] DIVISION OF RADIOLOGY * * *Final [...] the interphalangeal joint. DIVISION OF RADIOLOGY Provider, [facility] Dion Hummel - 04/21/2022 * * *Final Report* * [...] IMPRESSION IMPRESSION: No acute fracture or dislocation. Cna Caregiver: VANESA Transcribe Date/Time: Apr 21 2022 8:07P Dictated by : BOB CONTE MD This examination was interpreted and the report reviewed and electronically signed by: BOB CONTE MD on Apr 21 2022 8:10PM EST [facility] Radiology Study observation (narrative) [facility] XR Finger - right AP and Lat eral and obliqueOrdered By: Ccf Provider on 04-21-2022 [facility] [id number] (821 [id number])Ordered By: Bridge Tender on 04-08-2014 AFP.tumor marker [Mass/Vol] 4.6 ng/mL Normal 0.0-8.3 [facility] Work Phone: Comment on above: Mishel ECLIA methodol ogy PATIENT NOT FASTINGP ERFORMED BY: Talasim6370 [facility] [id number] PSA (PROSTATE SPECIFIC ANTIG EN) (V76.44)Ordered By: Bridge Tender on 04-08-2014 Prostate specific Ag [Mass/Vol] 0.1 ng/mL Normal 0.0-4.0 [facility] Work Phone: Comment on above: Mishel ECLIA methodol ogy. .According to the [employer], Serum PSA shoulddecrease and remain [...] malignant disease. PATIENT NOT FASTINGP ERFORMED BY: Talasim6370 [facility] [id number] PT (Prothrobim Time) (13090) Ordered By: Bridge Tender on 04-08-2014 INR Coag (PPP) [Relative time] 1.0 {INR} Normal 0.8-1.2 [facility] Work Phone: Comment on above: Reference interval i s for non-anticoagulated patients. . Suggested INR therapeutic range for Vitamin K antagonist therapy: Standard Dose (moderate intensity therapeutic range): 2.0 - 3.0 Higher intensity therapeutic range 2.5 - 3.5 PATIENT NOT FASTINGP ERFORMED BY: [address] [id number] Information: [id number] PT Coag (PPP) [Time] 10.2 {sec} Normal 9.1-12.0 [facility] Work Phone: Comment on above: PATIENT NOT FASTINGP ERFORMED BY: [address] [id number] Information: [id number] PT Coag (PPP) [Time] 10.2 s Normal 9.1-12.0 [facility] Internal Medicine; [facility] Internal Medicine Work Phone: Comment on above: PATIENT NOT FASTINGP ERFORMED BY: [address] [id number] Information: [id number] PTT (Activated Partial Throm boplastin Time) (33798)Ordered By: Bridge Tender on 04-08-2014 aPTT Coag (PPP) [Time] 26 {sec} Normal 24-33 [facility] Internal Medicine Work Phone: Comment on above: This test has not be en validated for monitoring unfractionated heparintherapy. aPTT-based therapeutic ranges for unfractionated heparintherapy have not been established. For general guidelines onHeparin monitoring, refer to the [facility] Directory of Services. PATIENT NOT FASTINGP ERFORMED BY: [place] [id number] [facility] [id number] aPTT Coag (PPP) [Time] 26 s Normal 24-33 [facility]; [facility] Internal Medicine Work Phone: Comment on above: This test has not be en validated for monitoring unfractionated heparintherapy. aPTT-based therapeutic ranges for unfractionated heparintherapy have not been established. For general guidelines onHeparin monitoring, refer to the [facility] Directory of Services. PATIENT NOT FASTINGP ERFORMED BY: [facility]6[address] [facility] [id number] CBC WITH MANUAL DIFF (48786) Ordered By: Bridge Tender on 06-22-2012 Basophils (Bld) [#/Vol] 0.0 {x10E3/uL} Normal 0.0-0.2 [facility] Work Phone: Comment on above: PATIENT WAS FASTINGP ERFORMED BY: [address] [id number] Information: [id number] Basophils (Bld) [#/Vol] 0.0 10*3/uL Normal 0.0-0.2 [facility]; [facility] Work Phone: Comment on above: PATIENT WAS FASTINGP ERFORMED BY: [address] [id number] Information: [id number] Basophils/100 WBC (Bld) 1 % Normal 0-3 [facility] Work Phone: Comment on above: PATIENT WAS FASTINGP ERFORMED BY: [address] [id number] Information: [id number] Eosinophils (Bld) [#/Vol] 0.1 {x10E3/uL} Normal 0.0-0.4 [facility] Work Phone: Comment on above: PATIENT WAS FASTINGP ERFORMED BY: [address] [id number] Information: [id number] Eosinophils (Bld) [#/Vol] 0.1 10*3/uL Normal 0.0-0.4 [facility]; [facility] Work Phone: Comment on above: PATIENT WAS FASTINGP ERFORMED BY: [place] [id number] [facility] [id number] Information: [id number] Eosinophils/100 WBC (Bld) 2 % Normal 0-7 [facility] Work Phone: Comment on above: PATIENT WAS FASTINGP ERFORMED BY: [address] [id number] Information: [id number] Erythrocyte distribution width (RBC) [Ratio] 13.2 % Normal 12.3-15.4 [facility] Work Phone: Comment on above: PATIENT WAS FASTINGP ERFORMED BY: [address] [id number] Information: [id number] Hematocrit (Bld) [Volume fraction] 46.9 % Normal 37.5-51.0 [facility] Work Phone: Comment on above: PATIENT WAS FASTINGP ERFORMED BY: [address] [id number] Information: [id number] Hemoglobin (Bld) [Mass/Vol] 16.0 g/dL Normal 12.6-17.7 [facility] Work Phone: Comment on above: PATIENT WAS FASTINGP ERFORMED BY: [address] [id number] Information: [id number] Immature granulocytes (Bld) [#/Vol] 0.0 {x10E3/uL} Normal 0.0-0.1 [facility] Work Phone: Comment on above: PATIENT WAS FASTINGP ERFORMED BY: [address] [id number] Information: [id number] Immature granulocytes (Bld) [#/Vol] 0.0 10*3/uL Normal 0.0-0.1 [facility]; [facility] Work Phone: Comment on above: PATIENT WAS FASTINGP ERFORMED BY: RISHABH [facility]6[address] [facility] [id number] Information: [id number] Immature granulocytes/100 WBC (Bld) 0 % Normal 0-2 [facility] Work Phone: Comment on above: PATIENT WAS FASTINGP ERFORMED BY: [address] [id number] Information: [id number] Lymphocytes (Bld) [#/Vol] 1.5 {x10E3/uL} Normal 0.7-4.5 [facility] Work Phone: Comment on above: PATIENT WAS FASTINGP ERFORMED BY: [place] [id number] [facility] [id number] Information: [id number],[id number] Lymphocytes (Bld) [#/Vol] 1.5 10*3/uL Normal 0.7-4.5 [facility]; [facility] Work Phone: Comment on above: PATIENT WAS FASTINGP ERFORMED BY: [place] [id number] [facility] [id number] Information: [id number] Lymphocytes/100 WBC (Bld) 29 % Normal 14-46 [facility] Work Phone: Comment on above: PATIENT WAS FASTINGP ERFORMED BY: [place] [id number] [facility] [id number] Information: [id number] MCH (RBC) [Entitic mass] 30.0 pg Normal 26.6-33.0 [facility] Work Phone: Comment on above: PATIENT WAS FASTINGP ERFORMED BY: [place] [id number] [facility] [id number] Information: [id number] MCHC (RBC) [Mass/Vol] 34.1 g/dL Normal 31.5-35.7 [facility] prehensive Internal Medicine Work Phone: Comment on above: PATIENT WAS FASTINGP ERFORMED BY: RISHABH [facility]6[address] [facility] [id number] Information: [id number],[id number] MCV (RBC) [Entitic vol] 88 fL Normal 79-97 [facility] Work Phone: Comment on above: PATIENT WAS FASTINGP ERFORMED BY: [address] [id number] Information: [id number] Monocytes (Bld) [#/Vol] 0.5 {x10E3/uL} Normal 0.1-1.0 [facility] Work Phone: Comment on above: PATIENT WAS FASTINGP ERFORMED BY: [place] [id number] [facility] [id number] Information: [id number] Monocytes (Bld) [#/Vol] 0.5 10*3/uL Normal 0.1-1.0 [facility]; [facility] Work Phone: Comment on above: PATIENT WAS FASTINGP ERFORMED BY: [place] [id number] [facility] [id number] Information: [id number] Monocytes/100 WBC (Bld) 10 % Normal 4-13 [facility] Work Phone: Comment on above: PATIENT WAS FASTINGP ERFORMED BY: [place] [id number] [facility] [id number] Information: [id number] Neutrophils (Bld) [#/Vol] 3.0 {x10E3/uL} Normal 1.8-7.8 [facility] Work Phone: Comment on above: PATIENT WAS FASTINGP ERFORMED BY: [facility]6[address] [facility] [id number] Information: [id number] Neutrophils (Bld) [#/Vol] 3.0 10*3/uL Normal 1.8-7.8 [facility]; [facility] Work Phone: Comment on above: PATIENT WAS FASTINGP ERFORMED BY: RISHABH LabComadelaine SharifJrxmbv0732 [facility] [id number] Information: [id number] Neutrophils/100 WBC (Bld) 58 % Normal 40-74 [facility] Work Phone: Comment on above: PATIENT WAS FASTINGP ERFORMED BY: CB [facility] Vzvowp4748 [facility] [id number] Information: [id number] Platelets (Bld) [#/Vol] 271 {x10E3/uL} Normal 140-415 [facility] Work Phone: Comment on above: PATIENT WAS FASTINGP ERFORMED BY: RISHABH [facility] Ptqnqx0869 [facility] [id number] Information: [id number] Platelets (Bld) [#/Vol] 271 10*3/uL Normal 140-415 [facility] Internal [facility]; [facility] Work Phone: Comment on above: PATIENT WAS FASTINGP ERFORMED BY: RISHABH [facility] [place] [facility] [id number] Information: [id number] RBC (Bld) [#/Vol] 5.33 {x10E6/uL} Normal 4.14-5.80 [facility] Internal Medicine Work Phone: Comment on above: PATIENT WAS FASTINGP ERFORMED BY: CB [facility] Tmugef9965 [facility] [id number] Information: [id number] RBC (Bld) [#/Vol] 5.33 10*6/uL Normal 4.14-5.80 [facility] Internal Medicine; [facility] Work Phone: Comment on above: PATIENT WAS FASTINGP ERFORMED BY: RISHABH [facility] Wttmeh[address]49 [address] [facility] [place] [id number] Information: [id number] WBC (Bld) [#/Vol] 5.1 {x10E3/uL} Normal 4.0-10.5 [facility] Internal Medicine Work Phone: Comment on above: PATIENT WAS FASTINGP ERFORMED BY: RISHABH Shariflin6370 [facility] [id number] Information: [id number] WBC (Bld) [#/Vol] 5.1 10*3/uL Normal 4.0-10.5 [facility] Internal Medicine; [facility] Work Phone: Comment on above: PATIENT WAS FASTINGP ERFORMED BY: RISHABH Ballard6[address] [facility] [id number] Information: [id number] Hemoglobin Glyclated (HGB A1 C) (49163)Ordered By: Bridge Tender on 06-22-2012 HbA1c (Bld) [Mass fraction] 5.1 % Normal 4.8-5.6 [facility] Internal Medicine Work Phone: Comment on above: . Increased risk for diabetes: 5.7 - 6.4 Diabetes: >6.4 Glycemic control for adults with diabetes: <7.0 PATIENT WAS FASTINGP ERFORMED BY: RISHABH Shariflin6[address] [facility] [id number] METABOLIC PANEL, COMPREHENSI VE (49708)Ordered By: Bridge Tender on 06-22-2012 Albumin [Mass/Vol] 4.4 g/dL Normal 3.5-5.5 [facility] Internal Medicine Work Phone: Comment on above: PATIENT WAS FASTINGP ERFORMED BY: RISHABH Shariflin6370 [facility] [id number] Albumin/Globulin [Mass ratio] 1.6 {ratio} Normal 1.1-2.5 [facility] Internal Medicine Work Phone: Comment on above: PATIENT WAS FASTINGP ERFORMED BY: RISHABH LabMoi SharifOqqqeb6624 [facility] [id number] ALP [Catalytic activity/Vol] 62 [iU]/L Normal 25-150 [facility] Internal Medicine Work Phone: Comment on above: PATIENT WAS FASTINGP ERFORMED BY: RISHABH Shariflin6370 [facility] [id number] ALP [Catalytic activity/Vol] 62 U/L Normal 25-150 [facility]; [facility] Work Phone: Comment on above: PATIENT WAS FASTINGP ERFORMED BY: [facility]6[address] [facility] [id number] ALT [Catalytic activity/Vol] 60 [iU]/L Abnormal 0-55 [...] - 32 PATIENT WAS FASTINGP ERFORMED BY: IumCarrier ClinicLhkmxv1153 [facility] [id number] ALT [Catalytic activity/Vol] 60 U/L Abnormal 0-55 [...] - 32 PATIENT WAS FASTINGP ERFORMED BY: IumCarrier ClinicXpdtmu9656 [facility] [id number] AST [Catalytic activity/Vol] 28 [iU]/L Normal 0-40 [facility] Work Phone: Comment on above: PATIENT WAS FASTINGP ERFORMED BY: [facility]6[address] [facility] [id number] AST [Catalytic activity/Vol] 28 U/L Normal 0-40 [facility]; [facility] Work Phone: Comment on above: PATIENT WAS FASTINGP ERFORMED BY: [facility]6[address] [facility] [id number] Bilirubin [Mass/Vol] 0.6 mg/dL Normal 0.0-1.2 Comp rehensive Internal Medicine Work Phone: Comment on above: PATIENT WAS FASTINGP ERFORMED BY: CB [facility] Yeakmu8076 [address] RoadDublin [place] [id number] Calcium [Mass/Vol] 9.1 mg/dL Normal 8.7-10.2 [facility] Internal Medicine Work Phone: Comment on above: PATIENT WAS FASTINGP ERFORMED BY: CB [facility] Fhjgxe6722 [address] RoadDublin [place] [id number] Chloride [Moles/Vol] 102 mmol/L Normal 97-108 Comp [facility] Work Phone: Comment on above: PATIENT WAS FASTINGP ERFORMED BY: CB [facility] Pbahxy4434 [address] RoadDublin [place] [id number] CO2 [Moles/Vol] 23 mmol/L Normal 20-32 [facility] Internal Medicine Work Phone: Comment on above: PATIENT WAS FASTINGP ERFORMED BY: CB [facility] Uvsmda4498 [address] RoadDublin [place] [id number] Creatinine [Mass/Vol] 0.91 mg/dL Normal 0.76-1.27 [facility] Internal Medicine Work Phone: Comment on above: PATIENT WAS FASTINGP ERFORMED BY: CB [facility] Igtnev0098 [address] RoadDublin [place] [id number] GFR/1.73 sq M predicted among blacks CKD-EPI (S/P/Bld) [Vol rate/Area] 122 mL/min/1.73 Normal [facility] Work Phone: Comment on above: PATIENT WAS FASTINGP ERFORMED BY: CB [facility] Osjimj2894 [address] RoadDublin [place] [id number] GFR/1.73 sq M predicted among non-blacks CKD-EPI (S/P/Bld) [Vol rate/Area] 106 mL/min/1.73 Normal [facility] Work Phone: Comment on above: PATIENT WAS FASTINGP ERFORMED BY: CB [facility] Qehnrs3996 [address] RoadDublin [place] [id number] Globulin (S) [Mass/Vol] 2.8 g/dL Normal 1.5-4.5 [facility] Internal Medicine Work Phone: Comment on above: PATIENT WAS FASTINGP ERFORMED BY: RISHABH [facility] Yczkus5480 [address] [facility] [place] [id number] Glucose [Mass/Vol] 100 mg/dL Abnormal 65-99 [facility] Internal Medicine Work Phone: Comment on above: PATIENT WAS FASTINGP ERFORMED BY: [facility] Zxotfp0845 [address] [facility] [place] [id number] Potassium [Moles/Vol] 4.3 mmol/L Normal 3.5-5.2 [facility] Internal Medicine Work Phone: Comment on above: PATIENT WAS FASTINGP ERFORMED BY: RISHABH [facility] Tixhmf5083 [address] [facility] [place] [id number] Protein [Mass/Vol] 7.2 g/dL Normal 6.0-8.5 [facility] Internal Medicine Work Phone: Comment on above: PATIENT WAS FASTINGP ERFORMED BY: [facility] Vckois4680 [address] [facility] [place] [id number] Sodium [Moles/Vol] 139 mmol/L Normal 134-144 [facility] Internal Medicine Work Phone: Comment on above: PATIENT WAS FASTINGP ERFORMED BY: [facility] [id number] [facility] [id number] Urea nitrogen [Mass/Vol] 12 mg/dL Normal 6-20 [facility] Internal Medicine Work Phone: Comment on above: PATIENT WAS FASTINGP ERFORMED BY: [facility] [id number] [address] [facility] [place] [id number] Urea nitrogen/Creatinine [Mass ratio] 13 mg/mg Normal 8-19 [facility] Internal Medicine Work Phone: Comment on above: PATIENT WAS FASTINGP ERFORMED BY: [facility] [id number] [address] RoadDublin [place] [id number] SED RATE ERYTHROCYTE ([id number]) Ordered By: Bridge Tender on 06-22-2012 ESR (Bld) [Velocity] 3 mm/h Normal 0-15 [facility] Work Phone: Comment on above: PATIENT WAS FASTINGP ERFORMED BY: [facility] [id number] [facility] [id number] TSH ([id number])Ordered By: Raymond james Type Casting Machine Operator on 06-22-2012 TSH Qn 1.350 {uIU/mL} Normal 0.450-4.500 [facility] Internal Medicine Work Phone: Comment on above: PATIENT WAS FASTINGP ERFORMED BY: [facility] [id number] [facility] [id number] Vital Signs Date Time Vital Sign Value Performing Clinician Facility 08-25-2024 09:09-0500 Body temperature 96.3 [degF] Fransico Harris MD Work Phone: [facility] 08-25-2024 09:09-0500 Body weight 118.1 kg Fransico Harris MD Work Phone: [facility] 08-25-2024 09:09-0500 Diastolic blood pressure 82 mm[Hg] Fransico Harris MD Work Phone: [facility] 08-25-2024 09:09-0500 Heart rate 85 /min Fransico Harris MD Work Phone: [facility] 08-25-2024 09:09-0500 Respiratory rate 20 /min Fransico Harris MD Work Phone: [facility] 08-25-2024 09:09-0500 SaO2% (BldA) [Mass fraction] 98 % Fransico Harris MD Work Phone: [facility] 08-25-2024 09:09-0500 Systolic blood pressure 140 mm[Hg] Fransico Harris MD Work Phone: [facility] 02-25-2024 09:38-0400 Body temperature 97.59 [degF] Walker Gaviria APRN.ASSEMBLER ENGINE Work Phone: [facility] 02-25-2024 09:38-0400 Body weight 127 kg Walker Gaviria APRN.ASSEMBLER ENGINE Work Phone: [facility] 02-25-2024 09:38-0400 Diastolic blood pressure 84 mm[Hg] Walker Pendlebury BUSINESS MANAGEMENT ANALYST.ASSEMBLER ENGINE Work Phone: [facility] 02-25-2024 09:38-0400 Heart rate 71 /min Walker Pendlebury BUSINESS MANAGEMENT ANALYST.ASSEMBLER ENGINE Work Phone: [facility] 02-25-2024 09:38-0400 Respiratory rate 20 /min Walker Pendlebury BUSINESS MANAGEMENT ANALYST.ASSEMBLER ENGINE Work Phone: [facility] 02-25-2024 09:38-0400 SaO2% (BldA) [Mass fraction] 98 % Walker Pendlebury BUSINESS MANAGEMENT ANALYST.ASSEMBLER ENGINE Work Phone: [facility] 02-25-2024 09:38-0400 Systolic blood pressure 144 mm[Hg] Walker Pendlebury BUSINESS MANAGEMENT ANALYST.ASSEMBLER ENGINE Work Phone: [facility] 04-21-2022 19:50-0400 Body temperature 97.7 [degF] Renea Praisler-Wood BUSINESS MANAGEMENT ANALYST.ASSEMBLER ENGINE Work Phone: [facility] 04-21-2022 19:50-0400 Body weight 122.38 kg Renea Praisler-Wood BUSINESS MANAGEMENT ANALYST.ASSEMBLER ENGINE Work Phone: [facility] 04-21-2022 19:50-0400 Diastolic blood pressure 82 mm[Hg] Renea Praisler-Wood BUSINESS MANAGEMENT ANALYST.ASSEMBLER ENGINE Work Phone: [facility] 04-21-2022 19:50-0400 Heart rate 84 /min Renea Praisler-Wood BUSINESS MANAGEMENT ANALYST.ASSEMBLER ENGINE Work Phone: [facility] 04-21-2022 19:50-0400 Respiratory rate 16 /min Renea Praisler-Wood BUSINESS MANAGEMENT ANALYST.ASSEMBLER ENGINE Work Phone: [facility] 04-21-2022 19:50-0400 SaO2% (BldA) [Mass fraction] 97 % Renea Praisler-Wood BUSINESS MANAGEMENT ANALYST.ASSEMBLER ENGINE Work Phone: [facility] 04-21-2022 19:50-0400 Systolic blood pressure 122 mm[Hg] Renea BuschDarlyn [facility] Work Phone: [facility] 04-08-2014 08:33-0400 BMI (Body Mass Index) [...] Large 04-08-2014 08:33-0400 BP Systolic 118 mm[Hg] Kenia Hubbard RN [facility] [...] 08:33-0400 Pulse Oximetry 8 % Debbie Pack [facility] Work [...] BMI (Body Mass Index) 31.52 kg/m2 Rola Saldana CMA [facility] Work Phone: 09-21-2013 09:19-0500 Body weight 105.43 kg Rola Saldana [facility] Internal Medicine Work Phone: 09-21-2013 09:19-0500 BP Diastolic 78 mm[Hg] Rola Saldana [facility] Internal [facility] Work Phone: Comment on above: Patient Position: Sitting; Cuff Location : Left Arm; Cuff Size: Standard 09-21-2013 09:19-0500 BP Systolic 116 mm[Hg] Rola Saldana [facility] Internal [facility] Work Phone: Comment on above: Patient Position: Sitting; Cuff Location : Left Arm; Cuff Size: Standard 09-21-2013 09:19-0500 BSA (Body Surface Area) 2.27 m2 Rola Saldana [facility] Work Phone: 09-21-2013 09:19-0500 Height 182.88 cm Rola Saldana [facility] Work Phone: 09-21-2013 09:19-0500 Pulse (Heart Rate) 84 /min Rola Saldana [facility] Internal [facility] Work Phone: Comment on above: Pattern: Regular 09-21-2013 09:19-0500 Pulse Oximetry 97 % Debbie Pack [facility] Internal Medicine Work Phone: Comment on above: Room air 09-21-2013 09:19-0500 Respiratory Rate 16 /min Rola Saldana [facility] Internal Medicine Work Phone: Comment on above: Pattern: Unlabored 09-21-2013 09:19-0500 SaO2% (BldA) [Mass fraction] 97 % Rola Saldana [facility]; [facility] Work Phone: [...] Work Phone: 06-22-2012 08:13-0400 Height 182.88 cm eKnia Hubbard RN [facility] Work Phone: [...] 14:01-0400 BMI (Body Mass Index) 31.48 kg/m2 Debbierosemary Pack [facility] Internal Medicine Work Phone: 02-05-2011 14:01-0400 Body Temperature 98 [degF] [facility] Work Phone: Comment on above: Method: Oral 02-05-2011 14:01-0400 Body weight 105.28 kg Debbie Pack [facility] Work Phone: 02-05-2011 14:01-0400 BP Diastolic 76 mm[Hg] Debbierosemary Pack [facility] Work Phone: Comment on above: Patient Position: Sitting; Cuff Location : Left Arm; Cuff Size: Standard 02-05-2011 14:01-0400 BP Systolic 124 mm[Hg] Debbierosemary Pack [facility] Internal Medicine Work Phone: Comment on above: Patient Position: Sitting; Cuff Location : Left Arm; Cuff Size: Standard 02-05-2011 14:01-0400 BSA (Body Surface Area) 2.27 m2 Debbierosemary Pack [facility] Internal Medicine Work Phone: 02-05-2011 14:01-0400 Height 182.88 cm Debbie Corby [facility] Work Phone: 02-05-2011 14:01-0400 Pulse (Heart Rate) 72 /min Debbie Corby [facility] Work Phone: Comment on above: Pattern: Regular 02-05-2011 14:01-0400 Respiratory Rate 14 /min Debbie De L aTorreon [facility] Internal Medicine Work Phone: Comment on above: Pattern: Unlabored Encounters Encounter Date Encounter Type Care Provider Facility Start: 03-21-2025 End: 03-21-[address] Jean Pearson MD Work Phone: -[facility] Start: 03-21-2025 End: 03-21-[address] Jean Pearson MD -[facility] Start: 03-21-2025 End: 03-21-2025 ambulatory Jean Pearson Facility:[facility] Start: 08-25-2024 End: 08-25-2024 ambulatory SELF Facility:[facility] Start: 08-25-2024 End: 08-25-2024 Office outpatient visit 15 minutes Fransico Harris MD Work Phone: [facility] Comment on above: Viral URI with cough (Primary Dx) Start: 07-16-2024 End: 07-16-2024 ambulatory Jean Pearson Facility:[facility] Start: 07-09-2024 ambulatory Jean Pearson Facilit y:[facility] Start: 07-09-2024 End: 07-09-2024 ambulatory Jean Pearson Facility:[facility] Start: 06-07-2024 ambulatory Jean Pearson Facilit y:[facility] Start: 06-02-2024 End: 06-02-2024 ambulatory Immunization Clinic Nurse [facility] Work Phone: [facility] Start: 06-02-2024 End: 06-02-2024 Patient encounter procedure Immunization Clinic Nurse Horton Work Phone: [facility] Start: 04-06-2024 End: 04-06-2024 ambulatory Jean Pearson Facility:[facility] Start: 02-25-2024 End: 02-25-2024 Subsequent hospital visit by physician Shameka [facility] Work Phone: Radiology Comment on above: Injury of right foot , initial encounter [S99.921A] Start: 02-25-2024 End: 02-25-2024 ambulatory DEBBIE PACK Facility:[facility] Start: 02-25-2024 End: 02-25-2024 Office outpatient visit 15 minutes Walker Gaviria BUSINESS MANAGEMENT ANALYST.ASSEMBLER ENGINE Work Phone: [facility] Comment on above: Injury of right foot , initial encounter (Primary Dx) Start: 06-04-2023 End: 06-04-2023 ambulatory Immunization Clinic Nurse Horton Work Phone: [facility] Start: 01-28-2023 End: 01-28-2023 ambulatory [facility] Work Phone: Start: 01-28-2023 End: 01-28-2023 Patient encounter procedure [facility] Start: 06-05-2022 End: 06-05-2022 ambulatory Immunization Clinic Nurse [facility]orton Work Phone: [facility] Start: 04-21-2022 End: 04-21-2022 Subsequent hospital visit by physician Xr [facility] Work Phone: Radiology Comment on above: Injury of right thum b, initial encounter [S69.91XA] Start: 04-21-2022 End: 04-21-2022 Patient encounter procedure Renea Nieto APRN.ASSEMBLER ENGINE Work Phone: [facility] Comment on above: Injury of right thum b, initial encounter (Primary Dx) Start: 04-08-2014 End: 04-08-2014 Office outpatient visit 25 minutes Debbie Rausch [facility] Start: 09-21-2013 End: 09-21-2013 Patient encounter procedure Debbie Pack [facility] Start: 06-22-2012 End: 06-22-2012 Phone Encounter Debbie Rausch [employer] [facility] Start: 06-22-2012 End: 06-22-2012 Patient encounter procedure Debbie Rausch [facility] Start: 02-15-2011 End: 02-15-2011 Patient encounter procedure Debbie Pack [facility] Start: 02-05-2011 End: 02-05-2011 Patient encounter procedure Debbie Pack [facility] Procedures Date Procedure Procedure Detail Performing Clinician Start: 03-21-2025 Urnls dip stick/tabl et reagent auto microscopy Dr. Jean Pearson MD Work Phone: Start: 03-21-2025 Vitamin D, 25-hydrox y measurement Dr. Jean Pearson MD Work Phone: Comment on above: Vitamin D StatusDefi ciency: <20 ng/mL (50nmol/L)Insufficiency: 20-30 ng/mL (50-75 nmol/L)Sufficiency: 30-100 ng/mL (75-250 nmol/L)Toxicity: >100 ng/mL (>250 nmol/L) Start: 02-25-2024 Radex foot complete minimum 3 views Walker Gaviria BUSINESS MANAGEMENT ANALYST.ASSEMBLER ENGINE Work Phone: Start: 06-04-2023 INFLUENZA VACCINE, A GE 6 MO - 64 YR, QUADRIVALENT (AFLURIA, FLULAVAL, FLUZONE) Lauro Sullivan MD Work Phone: Start: 10-03-2022 End: 10-04-2022 Office Visit Report Procedure Note: See Note; NOTES: [facility] [place] [address] OFFICE VISIT Date of Service: 10/01/22 MR#: [id number] Acct: [id number] Patient: ESDRAS GRANGER Rep #: [id number] : 1970 Provider: LIO hernandez Age/Sex: 51/M Location: [facility] Status: Signed Intake Vital Signs 03/05/15 21:43 Height 5 ft 10 in Intake Visit Reasons: RANDOM DOT DRUG SCREEN/[place] Allergies No Known Allergies Allergy (Verified 03/05/15 21:44) Office Procedures [facility] Billing Sheet Testing Other DOT Drug Screen: Yes 10/04/22 0625 <Electronically signed by Camilo VACA> Date Camilo VACA Cosigner Signature: Date (if applicable) CC: Debbie Corby DO Work Phone: Start: 06-17-2022 End: 06-17-2022 Office Visit Report Procedure Note: See Note; NOTES: [facility] [address] [place] [address] OFFICE VISIT Date of Service: 06/17/22 MR#: [id number] Acct: [id number] Patient: ESDRAS GRANGER Rep #: [id number] : 1970 Provider: LIO hernandez Age/Sex: 51/M Location: [facility] Status: Signed Intake Intake Visit Reasons: PE DOT DRUG SCREEN/[place] DRILLING Allergies No Known Allergies Allergy (Verified 03/05/15 21:44) Office Procedures [facility] Billing Sheet Testing DOT Drug Screen: Yes 06/17/221745 <Electronically signed by Camilo VACA> Date Camilo Goldsmith Signature: Date (if applicable) CC: Debbie Pack DO Work Phone: Start: 06-05-2022 INFLUENZA VACCINE QUADRIVALENT 6 MO - 64 YRS IM Nik Torreon DO Work Phone: Start: 04-21-2022 Radex fingr minimum 2 views Renea Nieto APRN.CNP Work Phone: Start: 09-06-2012 End: 09-06-2012 Cholecystectomy Kenia Hubbard Start: 09-14-2010 Lipid 1996 panel - S natividad or Plasma Immunization [facility] Work Phone: Appendectomy Kenia Hubbard Comment on above: age 13 Plan of Treatment Date Care Activity Detail Author Start: 11-03-2029 Urine microalbumin profile [facility] Start: 03-30-2025 Diabetes Screening Diabetes Screening [facility] Start: 06-02-2024 End: 06-02-2024 Patient encounter procedure 06/02/2024 8:20 AM EDT Immunization [facility] [address] [place], [place] [id number] [facility], Immunization Clinic Nurse [address] [place], [place] [id number] Flu shot [facility] Comment on above: Flu shot Start: 05-06-2024 Covid-19 Vaccine ( season) Covid-19 Vaccine () [facility] Start: 05-06-2024 Covid-19 Vaccine ( season) Covid-19 Vaccine () [facility] Start: 05-06-2024 Influenza vaccination Influenza Vaccine (#1) [facility] Start: 09-05-2023 Behavioral Health Screening Behavioral Health Screening [facility] Start: 05-06-2023 Covid-19 Vaccine ( season) Covid-19 Vaccine ( season) [facility] Start: 2022 Pneumococcal Vaccine: 50+ (1 of 1 - PCV) Pneumococcal Vaccine: 50+ (1 of 1 - PCV) [facility] Start: 2022 Shingrix Vaccine (1 of 2) Shingrix Vaccine (1 of 2) [facility] Start: 09-05-2022 Depression Assessment Depression Assessment [facility] Start: 05-06-2022 Influenza vaccination INFLUENZA (#1) [facility] Start: 10-10-2021 COVID-19 VACCINE (3 - Booster for Pfizer series) COVID-19 VACCINE (3 - Booster for Pfizer series) [facility] Start: 09-05-2021 DEPRESSION ASSESSMENT DEPRESSION ASSESSMENT [facility] Start: 07-05-2021 COVID-19 VACCINE (3 - Booster for Pfizer series) COVID-19 VACCINE (3 - Booster for Pfizer series) [facility] Start: 07-05-2021 Covid-19 Vaccine (3 - Pfizer series) Covid-19 Vaccine (3 - Pfizer series) [facility] Start: 2017 COLOGUARD (FIT-DNA) COLOGUARD (FIT-DNA) [facility] Start: 2017 Colonoscopy COLONOSCOPY [facility] Start: 2017 COLORECTAL CANCER SCREENING COLORECTAL CANCER SCREENING [facility] Start: [address] COLONOGRAPHY [facility] Start: 2017 DIABETES SCREEN DIABETES SCREEN [facility] Start: 2017 Diabetes Screening Diabetes Screening [facility] Start: 2017 FECAL OCCULT BLOOD FECAL OCCULT BLOOD [facility] Start: 2017 Screening for malignant neoplasm of colon [facility] Start: 2017 SIGMOIDOSCOPY SIGMOIDOSCOPY [facility] Start: 09-14-2015 Lipid 1996 panel - Serum or Plasma Lipid Screening [facility] Start: 09-14-2015 Lipid panel Lipid Screening [facility] Start: 09-14-2015 LIPID SCREEN LIPID SCREEN [facility] Start: 04-08-2014 Provider Instructions for Treatment Follow up in 6-8 months [facility] Work Phone: Start: 12-17-2013 Assay of thyroid stimulating hormone tsh TSH (55022) [facility]; [facility] Work Phone: Start: 12-17-2013 TSH Qn TSH (51339) [facility] Work Phone: Start: 12-17-2013 Assay of free thyroxine T4, FREE (THYROXINE) (15988) [facility]; [facility] Work Phone: Start: 12-17-2013 Free T4 [Mass/Vol] T4, FREE (THYROXINE) (64268) [facility] Work Phone: Start: 12-17-2013 Assay of triiodothyronine t3 free T3, FREE (TRIDOTHYRONINE) (05539) [facility]; [facility] Work Phone: Start: 12-17-2013 Free T3 [Mass/Vol] T3, FREE (TRIDOTHYRONINE) (96584) [facility] Work Phone: Start: 12-17-2013 Lipid panel LIPID PANEL (09938) [facility] Work Phone: Start: 12-17-2013 Hepatic function panel HEPATIC FUNCTION PANEL (65089) [facility] Work Phone: Start: 09-21-2013 Patient Education Flu (Influenza) *: flu [facility] Work Phone: Start: 09-21-2013 Provider Instructions for Treatment [facility] Work Phone: Start: 06-22-2012 Patient Education Abdominal Pain: abdominal pain [facility] Work Phone: Start: 06-22-2012 Comprehensive metabolic panel METABOLIC PANEL, COMPREHENSIVE (58798) [facility] Work Phone: Start: 02-15-2011 Provider Instructions for Treatment [facility] Work Phone: Start: 02-05-2011 Acute hepatitis panel HEPATITIS PANEL (41508) [facility] Work Phone: Comment on above: also has h/o tatoos Start: 02-05-2011 Assay of thyroid stimulating hormone tsh TSH (53562) [facility]; [facility] Work Phone: Start: 02-05-2011 TSH Qn TSH (42883) [facility] Work Phone: Start: 02-05-2011 Assay of free thyroxine T4, FREE (THYROXINE) (86438) [facility]; [facility] Work Phone: Start: 02-05-2011 Free T4 [Mass/Vol] T4, FREE (THYROXINE) (41490) [facility] Work Phone: Start: 02-05-2011 Assay of triiodothyronine t3 free T3, FREE (TRIDOTHYRONINE) (21499) [facility]; [facility] Work Phone: Start: 02-05-2011 Free T3 [Mass/Vol] T3, FREE (TRIDOTHYRONINE) (01517) [facility] Work Phone: Start: 02-05-2011 Glucose [Mass/Vol] Glucose, PP/2 Hour (33156) [facility] Work Phone: Start: 02-05-2011 Glucose quantitative blood xcpt reagent strip Glucose, PP/2 Hour (18347) [facility]; [facility] Work Phone: Start: 02-05-2011 Hepatic function panel HEPATIC FUNCTION PANEL (90492) [facility] Work Phone: Start: 02-05-2011 Immunoassay analyte qual/semiqual multiple step ANTIMITOCHONDRIAL ANTIBODY (67243) [facility] Work Phone: Start: 02-05-2011 Assay of glutamyltrase gamma GGT (GAMMA GLUTAMYLTRANSFERASE) (70627) [facility]; [facility] Work Phone: Start: 02-05-2011 Gamma glutamyl transferase [Catalytic activity/Vol] GGT (GAMMA GLUTAMYLTRANSFERASE) (25753) [facility] Work Phone: Start: 02-05-2011 Assay of [id number] TRANSFERRIN (55739) [facility]; [facility] Work Phone: Start: 02-05-2011 Transferrin [Mass/Vol] TRANSFERRIN (44955) [facility] Work Phone: Start: 02-05-2011 Assay of ferritin FERRITIN (37953) [facility]; [facility] Work Phone: Start: 02-05-2011 Ferritin [Mass/Vol] FERRITIN (80507) [facility] Work Phone: Start: 02-05-2011 Antinuclear antibodies dany DANY (ANTINUCLEAR ANTIBODY) (03775) [facility]; [facility] Work Phone: Start: 02-05-2011 Nuclear Ab IF (S) [Titer] DANY (ANTINUCLEAR ANTIBODY) (30889) [facility] Work Phone: Start: 02-05-2011 Provider Instructions for Treatment Diet, Exercise, and Wt loss [facility] Work Phone: Start: 1991 Hepatitis B Vaccine (1 of 3 - 19+ 3-dose series) Hepatitis B Vaccine (1 of 3 - 19+ 3-dose series) [facility] Start: 1990 Anxiety Screening Anxiety Screening [facility] Start: 1990 Depression Screening Depression Screening [facility] Start: 1990 HEPATITIS C SCREENING HEPATITIS C SCREENING [facility] Start: 1990 Hepatitis C screening Hepatitis C Screening [facility] Start: 1990 HIV SCREENING HIV SCREENING [facility] Start: 1990 HIV screening HIV Screening [facility] Start: 1984 Adult depression screening assessment DEPRESSION SCREENING [facility] Start: 1972 HEPATITIS B (1 of 3 - 3-dose series) HEPATITIS B (1 of 3 - 3-dose series) [facility] Start: 1972 Hepatitis B Vaccine (1 of 3 - 3-dose series) Hepatitis B Vaccine (1 of 3 - 3-dose series) [facility] Work Phone: [facility] Work Phone: [facility] Work Phone: [facility] Work Phone: [facility] Work Phone: Immunizations Immunization Date Immunization Notes Care Provider Fa [facility] 06-02-2024 influenza, seasonal, injectable Immunization [facility] Work Phone: [facility] 06-04-2023 influenza, injectabl e, quadrivalent, contains preservative Immunization [facility] Work Phone: [facility] 06-04-2023 influenza virus vaccine, unspecified formulation Xr [facility] Work Phone: [facility] 06-05-2022 influenza, injectabl e, quadrivalent, contains preservative Immunization [facility] Work Phone: [facility] 06-06-2021 influenza, injectabl e, quadrivalent, contains preservative Renea Prasanti-Wood BUSINESS MANAGEMENT ANALYST.ASSEMBLER ENGINE Work Phone: [facility] 07-12-2020 influenza, injectabl e, quadrivalent, contains preservative Renea Praanetteler-Wood BUSINESS MANAGEMENT ANALYST.ASSEMBLER ENGINE Work Phone: [facility] Work Phone: 11-04-2019 tetanus toxoid, reduced diphtheria toxoid, and acellular pertussis vaccine, adsorbed Renea Praisler-Wood BUSINESS MANAGEMENT ANALYST.ASSEMBLER ENGINE Work Phone: [facility] 06-30-2019 influenza, injectabl e, quadrivalent, contains preservative Renea Praisler-Wood BUSINESS MANAGEMENT ANALYST.ASSEMBLER ENGINE Work Phone: [facility] 06-03-2018 influenza, injectabl e, quadrivalent, contains preservative Renea Praisler-Wood BUSINESS MANAGEMENT ANALYST.ASSEMBLER ENGINE Work Phone: [facility] 07-09-2017 influenza, injectabl e, quadrivalent, contains preservative Renea Praisler-Wood BUSINESS MANAGEMENT ANALYST.ASSEMBLER ENGINE Work Phone: [facility] 06-26-2016 influenza, injectabl e, quadrivalent, contains preservative Renea Praisler-Wood BUSINESS MANAGEMENT ANALYST.[facility] Work Phone: [facility] Work Phone: 06-14-2015 influenza, injectabl e, quadrivalent, contains preservative Renea Praisler-Wood BUSINESS MANAGEMENT ANALYST.[facility] Work Phone: [facility] 06-30-2013 influenza virus vaccine, unspecified formulation Renea Praisler-Wood BUSINESS MANAGEMENT ANALYST.[facility] Work Phone: [facility] Work Phone: 06-24-2012 influenza virus vaccine, unspecified formulation Renea Praisler-Wood BUSINESS MANAGEMENT ANALYST.[facility] Work Phone: [facility] 06-26-2011 influenza virus vaccine, unspecified formulation Renea Praisler-Wood BUSINESS MANAGEMENT ANALYST.[facility] Work Phone: [facility] Work Phone: 07-11-2010 influenza virus vaccine, unspecified formulation Renea Praisler-Wood BUSINESS MANAGEMENT ANALYST.[employer] Work Phone: [facility] Work Phone: 05-31-2009 influenza virus vaccine, unspecified formulation Renea Praisler-Wood BUSINESS MANAGEMENT ANALYST.[employer] Work Phone: [facility] Work Phone: 07-20-2008 influenza virus vaccine, unspecified formulation Renea Praisler-Wood BUSINESS MANAGEMENT ANALYST.[employer] Work Phone: [facility] Work Phone: Payers Date Payer Category Payer Self-pay [id number] 2021 Unknown 2021 Unknown [id number] 2012 Unknown [place] [id number] 2012 Unknown L Unknown [id number] Unknown [id number] [id number] Unknown [id number] [id number] [id number] Unknown [id number] [id number] [id number] Unknown [id number] [id number] Unknown [id number] [id number] Social History Date Type Detail Facility Start: 04-21-2022 End: 06-04-2023 Caffeine Use Caffeine Use [facility] Work Phone: Comment on above: 2 energy drinks a da y Tobacco use: Tobacco use: [facility] Work Phone: Start: 03-24-2016 End: 07-05-2024 Tobacco smoking status NHIS Never smoked tobacco [facility] Start: 03-24-2016 Tobacco use and exposure Smokeless tobacco non-user [facility] Start: 04-21-2022 End: 08-25-2024 Alcohol intake Current non-drinker of alcohol (finding) [facility] Start: 1970 Sex Assigned At Not on file C [facility] Tobacco use: Tobacco use: [facility]; [facility] Work Phone: Start: 10-03-2022 Tobacco smoking status NHIS Unknown if ever smoked [facility] Start: 1970 Sex Assigned At Male W [facility] Start: 04-21-2022 End: 06-04-2023 Tobacco use panel [facility] National Score (1-100), lower number is lower risk 67 [facility] Clinical Notes 04-21-2022 to 08-25-2024 Fransico Harris MD - 08/25/2024 9:18 AM Debbie Johnson RT(R) - 02/25/2024 9:50 AM Walker Gomes APRN.ASSEMBLER ENGINE - 02/25/2024 9:40 AM EDTPatient Instructions Note Date & Type Note Facility 08-25-2024 Note HNO ID: [id number] Author: FRANSICO HARRIS MD Service: ? Author Type: Physician Type: Progress Notes Filed: 08/25/2024 09:37 Note Text: Patient presents with: Cough: Fever x 3 days HPI: Feeling sick starting 3 days ago. Fever, sore throat, sinus pressure, and headache improving. He had productive colored sputum this morning so presents for evaluation. Positive symptoms: Cough, Fever, Chest tightness, Sore throat, Sinus pressure, Nasal Congestion, Rhinorrhea, Fever, Body Aches, Headache, Negative symptoms: Chest pain, OTC: Nyquil MEDICATIONS: Current Outpatient Medications Medication Sig acyclovir (ZOVIRAX) 400 mg tablet Take 1 tablet by mouth three times daily. (Patient not taking: Reported on 04/21/2022) mupirocin (BACTROBAN) 2 % ointment Apply 1 application to affected area three times daily. (Patient not taking: Reported on 04/21/2022) No current facility-administered medications for this visit. ALLERGIES: ALLERGIES No Known Allergies VITALS: BP 140/82 Pulse 85 Temp (!) 35.7 ?C (96.3 ?F) Resp 20 Wt 118.1 kg (260 lb 5.8 oz) SpO2 98% PHYSICAL EXAM: GEN: mildly ill appearing, pleasant, alert HEENT: PERRL, EOMI, conjunctiva clear Ears: canals clear. TMs without erythema, bulge, or effusion Sinuses: non-tender frontal sinus, non-tender maxillary sinuses Throat: moist mucous membranes, mild erythema, no exudate Neck: supple, no thyromegaly, no lymphadenopathy HEART: regular rate, regular rhythm, no murmurs LUNGS: initial wheeze turns clear to auscultation after cough, no crackles, no increased WOB ASSESSMENT/PLAN: 1. Viral URI with cough - ICD9: 465.9, ICD10: J06.9 - suspect viral URI which is improving. - Discussed supportive care treatment with rest, cold medicine, and analgesia. Recommended mucinex DM for bronchitis. Follow up with worsening cough, worsening shortness of breath, increasing chest pain, or late onset fever. Fransico Harris MD [facility] 08-25-2024 History of Presen t illness Narrative Patient presents with: Cough: Fever x 3 days HPI: Feeling sick starting 3 days ago. Fever, sore throat, sinus pressure, and headache improving. He had productive colored sputum this morning so presents for evaluation. Positive symptoms: Cough, Fever, Chest tightness, Sore throat, Sinus pressure, Nasal Congestion, Rhinorrhea, Fever, Body Aches, Headache, Negative symptoms: Chest pain, OTC: Nyquil MEDICATIONS: Current Outpatient Medications Medication Sig acyclovir (ZOVIRAX) 400 mg tablet Take 1 tablet by mouth three times daily. (Patient not taking: Reported on 04/21/2022) mupirocin (BACTROBAN) 2 % ointment Apply 1 application to affected area three times daily. (Patient not taking: Reported on 04/21/2022) No current facility-administered medications for this visit. ALLERGIES: ALLERGIES No Known Allergies VITALS: BP 140/82 Pulse 85 Temp (!) 35.7 C (96.3 F) Resp 20 Wt 118.1 kg (260 lb 5.8 oz) SpO2 98% PHYSICAL EXAM: GEN: mildly ill appearing, pleasant, alert HEENT: PERRL, EOMI, conjunctiva clear Ears: canals clear. TMs without erythema, bulge, or effusion Sinuses: non-tender frontal sinus, non-tender maxillary sinuses Throat: moist mucous membranes, mild erythema, no exudate Neck: supple, no thyromegaly, no lymphadenopathy HEART: regular rate, regular rhythm, no murmurs LUNGS: initial wheeze turns clear to auscultation after cough, no crackles, no increased WOB ASSESSMENT/PLAN: 1. Viral URI with cough - ICD9: 465.9, ICD10: J06.9 - suspect viral URI which is improving. - Discussed supportive care treatment with rest, cold medicine, and analgesia. Recommended mucinex DM for bronchitis. Follow up with worsening cough, worsening shortness of breath, increasing chest pain, or late onset fever. Fransico Harris MD documented in this encounter [facility] 07-09-2024 Note [facility] Medical Records Department [address] [place] [address] History Physical Exam 07/09/24629 MR#: [id number] Acct: [id number] Name: ESDRAS GRANGER Jr. Rep #: [id number] : 1970 53 From: Stiven Friend DO PCP: Dr. Jean Pearson MD Status:[facility] Location: [place] [address] HPI - General General Date of Admission: 07/09/24 Date of Service: 07/09/24 Chief Complaint: screening colon HPI Narrative ESDRAS GRANGER, is a 53 M who presents today for screening colonoscopy. He has not had a colonoscopy in the past. He does not take any medicines on a daily basis. [facility] Medical History (Updated 07/05/24 @ 13:40 by Rebecca Driscoll) Fatty liver Non-smoker CPAP (continuous positive airway pressure) dependence Home Medications ???Medication ???Instructions ???Recorded ???Last Taken ???Type NK 06/07/24 Unknown History Allergy/AdvReac Type Severity Reaction Status Date / Time No Known Allergies Allergy Verified 07/05/24 13:33 Surgical History (Updated 07/05/24 @ 13:40 by Rebecca Driscoll) Hx of wisdom tooth extraction History of lithotripsy Hx laparoscopic cholecystectomy Hx of LASIK Hx of appendectomy Social History (Updated 06/07/24 @ 12:01 by Liss Murdock) household members: spouse and children number of children: 2 current occupational status: employed current occupation: [employer] Smoking Status: Never smoker alcohol intake: never substance use type: does not use ROS Review of Systems ROS Unobtainable: other Constitutional Constitutional: Denies fatigue, fever(s), poor appetite, weight gain or weight loss ENT HEENT: Denies mouth lesions Cardiovascular Cardiovascular: Denies abdominal bloating, abdominal edema or abdominal pain Respiratory/Chest Respiratory/Chest: Denies change in mental status, change in phlegm color, chest congestion or chest tightness Gastrointestinal Gastrointestinal: Denies belching, bloating, change in bowel habits, change in stool character, chewing difficulty, coffee ground emesis, constipation, cramping, diarrhea, dyspepsia, dysphagia, early satiety, excessive flatus, fecal incontinence, heartburn, hematemesis, hematochezia, hemorrhoids, loose stools, melena, nausea, odynophagia, rectal bleeding, tenesmus, vomiting or weight changes Genitourinary Genitourinary: Denies abdominal discomfort, burning urination or itching Musculoskeletal Musculoskeletal: Reports as per HPI; Denies muscle weakness or myalgias Integumentary Integumentary: Denies jaundice Neurologic Neurologic: Denies lack of coordination or weakness Psychiatric Psychiatric: Denies confusion, depression, memory loss, mood swings, paranoia or suicidal ideation Endocrine Endocrinology: Denies systems reviewed and no addt'l complaints, except as documented Hematologic/Lymphatic Hematologic/Lymphatic: Denies anemia, easy bleeding, easy bruising or lymphadenopathy Allergic/Immunologic Allergic/Immunologic: Denies systems reviewed and no addt'l complaints, except as documented Vital Signs Vital Signs Vital Signs: 07/09/24 05:55 07/09/24 05:55 Temperature 98.6 F Temperature Source Temporal Pulse Rate 76 Respiratory Rate 18 Respiratory Pattern Normal Blood Pressure 122/78 H Blood Pressure Mean 92 Blood Pressure Source Monitor Blood Pressure Position Sitting Blood Pressure Location Left Arm Pulse Ox 98 Oxygen Delivery Method Room Air Weight Weight: 268 lb 15.423 oz Body Mass Index (BMI) 38.5 Physical Exam Const alert General Appearance: cooperative Orientation / Consciousness: oriented to person HEENT hearing grossly normal bilaterally Head and Scalp: normal to inspection Face and Sinus: face symmetric Nose: external nose normal Mouth: oral and palatal mucosa normal Eyes conjunctivae normal General Eye: normal appearance of both eyes Neck full ROM General: normal visual inspection Lymph Lymphatic: no lymphadenopathy noted Chest inspection of chest normal and palpation of chest normal Chest: symmetrical chest wall rise Resp normal respiratory effort Effort and Inspection: able to speak in complete sentences Cardio regular rate GI non-distended Percussion: normal to percussion Rectal Exam: deferred Neuro Speech: speech normal Gait (Neuro): normal gait Assessment Plan Assessment/Plan (1) Encounter for screening for malignant neoplasm of colon: PLAN: He will undergo screening colonoscopy. He was explained alternatives, risk, benefits include not withstanding bleeding, infection, sepsis, perforation, need for emergent surgery . He will have an ASA of 3. 07/09/24 0632 Cosigner Signature (if applicable): CC: Dr. Jean Pearson MD; Stiven Friend, DO Signed [facility] 02-25-2024 History of Presen t illness Narrative [...] PATIENT PRESENTS WITH AN IMPLANTABLE OR ATTACHED CLOTH BLEACHING RANGE BACK TENDER: No RADIOLOGY DEPARTMENT: General X-ray: Exam(s) Completed: Lower Extremity X-Ray(s): Foot, Right PERIPHERAL IV DATA: Not applicable SIGNED BY: GRACE Pollock) February 25, 2024 9:47 AM documented in this encounter [facility] 02-25-2024 Note HNO ID: [id number] Author: DEBBIE MARTINEZ RT(R) Service: Radiology Author Type: Technologist Type: Progress [...] PATIENT PRESENTS WITH AN IMPLANTABLE OR ATTACHED CLOTH BLEACHING RANGE BACK TENDER: No RADIOLOGY DEPARTMENT: General X-ray: Exam(s) Completed: Lower Extremity X-Ray(s): Foot, Right PERIPHERAL IV DATA: Not applicable SIGNED BY: RT Maris(R) February 25, 2024 9:47 AM [facility] 02-25-2024 Note HNO ID: [id number] Author: WALKER GAVIRIA APRN.ASSEMBLER ENGINE Service: ? Author Type: Nurse Practitioner Type: [...] Laterality Date APPENDECTOMY 1985 F ESWL UNILATERAL 2007 Rt kidney stone LAPAROSCOPY SURG CHOLECYSTECTOMY 09/06/2012 Cholecystectomy, lap LASIK [address] [place] [address] ALLERGIES Patient has no known allergies. MEDICATIONS [...] of care. This note was generated using [employer] software. It may contain errors in wording, punctuation, or spelling. Walker Gaviria APRN.[facility] 02-25-2024 History of Presen t illness Narrative [...] Laterality Date APPENDECTOMY 1984 F ESWL UNILATERAL 2008 Rt kidney stone LAPAROSCOPY SURG CHOLECYSTECTOMY 09/06/2012 Cholecystectomy, lap LASIK [address] [place] ALLERGIES Patient has no known allergies. MEDICATIONS [...] of care. This note was generated using [employer] software. It may contain errors in wording, punctuation, or spelling. Walker Gaviria APRN.[facility] documented in this encounter [facility] 04-21-2022 Instructions Renea Nieto APRN.CNP - 04/21/2022 8:10 PM EDT ASSESSMENT/PLAN: 1. Injury of right thumb, initial encounter - ICD9: 959.5, ICD10: S69.91XA - XR DIGIT GENERAL 3V FRONTAL/LAT/OBL RIGHT. My reading: no fracture. Radiologist IMPRESSION: No acute fracture or dislocation. Cna Caregiver: VANESA Transcribe Date/Time: Apr 21 2022 8:07P [...] treatment with rest and analgesia. Renea Nieto APRN.CNP CONTUSIONS GENERAL INFORMATION: A contusion, or bruise, [...] of the bruise. documented in this encounter [facility] 04-21-2022 History of Presen t illness [...] LAPAROSCOPY SURG CHOLECYSTECTOMY 09/06/2012 Cholecystectomy, lap LASIK [address] [place] ALLERGIES Patient has no known allergies. MEDICATIONS [...] Radiologist IMPRESSION: No acute fracture or dislocation. Cna Caregiver: VANESA Transcribe Date/Time: Apr 21 2022 8:07P [...] with rest and analgesia. Renea Nieto APRN.BUTCH documented in this encounter [facility] Evaluation note Diagnosis Injury of right thumb, initial encounter- Primary documented in this encounter [facility] noteNo assessment information availableWUniversity [facility]als [facility] Work Phone: Evaluation note* Diagnosis Injury of right foot, initial encounter- Primary Injury of right foot, initial encounter [facility] Diagnosis Injury of right foot, initial encounter documented in this encounter [facility] note* Diagnosis Injury of right thumb, initial encounter documented [facility] encounter [facility]* Diagnosis Viral URI with cough- Primary Acute upper respiratory infections of unspecified site [facility] Name Dates Details How to access [facility] Indication:Fatty liver Start:08-Apr-2014 Instruction Type:Patient Education How to access [employer] - Detail Indication:Fatty liver Start:08-Apr-2014 Instruction Type:Patient [...] Closed Specialty Diagnoses / Procedures Referred By Josephine merida Referred To Contact XR IMAGING Diagnoses Injury of right thumb, initial encounter Procedures XR DIGIT GENERAL 3V FRONTAL/LAT/OBL RIGHT RADEX FINGR MINIMUM 2 VIEWS Renea Nieto APRN.ASSEMBLER ENGINE [address] [place] [address] Xr Imaging Referral ID Status Reason Start Date Expiration Date V isits Requested Visits Authorized [id number] Closed Auto-Generate d Referral 04/21/2022 05/21/2023 1 1 [facility] for referral (narrative)* Diagnostic Procedure Only (Urgent) - Closed Specialty Diagnoses / Procedures Referred By Contac t Referred To Contact XR IMAGING Diagnoses Injury of right foot, initial encounter Procedures XR FOOT GENERAL 3V AP/LAT/OBL RIGHT RADEX FOOT COMPLETE MINIMUM 3 VIEWS Walker Gaviria APRN.ASSEMBLER ENGINE [address] [place] [address] [place] [address] Referral ID Status Reason Start Date Expiration Date V isits Requested Visits Authorized [id number] Closed Auto-Generate d Referral 02/25/2024 03/26/2025 1 1 [facility] for referral (narrative)* Diagnostic Procedure Only (Urgent) - Closed Specialty Diagnoses / Procedures Referred By Contac t Referred To Contact XR IMAGING Diagnoses Injury of right foot, initial encounter Procedures XR FOOT GENERAL 3V AP/LAT/OBL RIGHT RADEX FOOT COMPLETE MINIMUM 3 VIEWS Walker Gaviria APRN.ASSEMBLER ENGINE [address] [facility] [address] [place] [address] Referral ID Status Reason Start Date Expiration Date V isits Requested Visits Authorized [id number] Closed Auto-Generate d Referral 02/25/2024 03/26/2025 1 1 [facility] for referral (narrative)* Diagnostic Procedure Only (Urgent) - Closed Specialty Diagnoses / Procedures Referred By Contac t Referred To Contact XR IMAGING Diagnoses Injury of right thumb, initial encounter Procedures XR DIGIT GENERAL 3V FRONTAL/LAT/OBL RIGHT RADEX FINGR MINIMUM 2 VIEWS Renea Nieto APRN.ASSEMBLER ENGINE [address] [place] [address] [place] [address] Referral ID Status Reason Start Date Expiration Date V isits Requested Visits Authorized [id number] Closed Auto-Generate d Referral 04/21/2022 05/21/2023 1 1 [facility] for referral (narrative)No reason for referral information availableWUniversity Hospitals [facility] Work Phone: [facility] N[facility]* Diagnostic Procedure Only (Urgent) - Closed Specialty Diagnoses / Procedures Referred By Contac t Referred To Contact XR IMAGING Diagnoses Injury of right foot, initial encounter Procedures XR FOOT GENERAL 3V AP/LAT/OBL RIGHT RADEX FOOT COMPLETE MINIMUM 3 VIEWS Walker Gaviria APRN.ASSEMBLER ENGINE [address] [place] [address] [place] [address] Referral ID Status Reason Start Date Expiration Date V isits Requested Visits Authorized [id number] Closed Auto-Generate d Referral 02/25/2024 03/26/2025 1 1 [facility] for visit Narrative* Diagnostic Procedure Only (Urgent) - Closed Specialty Diagnoses / Procedures Referred By Contac t Referred To Contact XR IMAGING Diagnoses Injury of right thumb, initial encounter Procedures XR DIGIT GENERAL 3V FRONTAL/LAT/OBL RIGHT RADEX FINGR MINIMUM 2 VIEWS Renea Nieto APRN.ASSEMBLER ENGINE [address] [place] [address] [place] [address] Referral ID Status Reason Start Date Expiration Date V isits Requested Visits Authorized [id number] Closed Auto-Generate d Referral 04/21/2022 05/21/2023 1 1 [facility] Family History No Family History Records FoundUnknown Family Member Name Dates Details Family Members In General Comments:ME on maternal side Status:Active Father Comments:BP Status:Active Unknown Family Member Name Dates Details Family Members In General Comments:ME on maternal side Status:Active Father Comments:BP Status:Active Instructions Name Dates Details How to access [email or web address] [employer] online Indication:Fatty liver Start:08-Apr-2014 Instruction Type:Patient Education How to access [employer] online - Detail Indication:Fatty liver Start:08-Apr-2014 Instruction Type:Patient Education Patient Instructions Indication:Fatty liver Start:08-Apr-2014 Instruction Type:Provider Instructions for Treatment Patient Instructions Indication:Elevated LFTs Start:21-Sep-2013 Instruction Type:Provider Instructions for Treatment Patient Instructions Indication:Abdominal pain, acute, right upper quadrant Start:22-Jun-2012 Instruction Type:Provider Instructions for Treatment Summary Purpose Advance Directives No Advanced Directives Records FoundNo Advanced Directives Records Found Additional Source Comments Source Comments (unrecognize d section and content) In the event this informatio n is protected by the Federal Confidentiality of Alcohol and Drug Abuse Patient Records regulations: The Federal rules restrict any use of the information to criminally investigate or prosecute any alcohol or drug abuse patient.[facility] the event this information is protected by the Federal Confidentiality of Alcohol and Drug Abuse Patient Records regulations: The Federal rules restrict any use of the information to criminally investigate or prosecute any alcohol or drug abuse patient.[facility] the event this information is protected by the Federal Confidentiality of Alcohol and Drug Abuse Patient Records regulations: The Federal rules restrict any use of the information to criminally investigate or prosecute any alcohol or drug abuse patient.[facility] the event this information is protected by the Federal Confidentiality of Alcohol and Drug Abuse Patient Records regulations: The Federal rules restrict any use of the information to criminally investigate or prosecute any alcohol or drug abuse patient.[facility]In the event this information is protected by the Federal Confidentiality of Alcohol and Drug Abuse Patient Records regulations: The Federal rules restrict any use of the information to criminally investigate or prosecute any alcohol or drug abuse patient.[facility] HospitalIn the event this information is protected by the Federal Confidentiality of Alcohol and Drug Abuse Patient Records regulations: The Federal rules restrict any use of the information to criminally investigate or prosecute any alcohol or drug abuse patient.[facility]In the event this information is protected by the Federal Confidentiality of Alcohol and Drug Abuse Patient Records regulations: The Federal rules restrict any use of the information to criminally investigate or prosecute any alcohol or drug abuse patient.[facility]In the event this information is protected by the Federal Confidentiality of Alcohol and Drug Abuse Patient Records regulations: The Federal rules restrict any use of the information to criminally investigate or prosecute any alcohol or drug abuse patient.[facility] Reason for Visit (unrecogniz ed section and content) Reason Comments right thumb pain Injired it 1 week ag o and a tool fell on it Reason Comments Pain (foot) R heel, slipped and landed on heel, unable to bear weight without pain x 1 day Reason Comments Cough Fever x 3 days Care Teams (unrecognized sec tion and content) Larriman Helper Relationship Specialty Start Date End Date Debbie Pack DO PCP - General Internal Medicine 07/05/12 Larriman Helper Relationship Specialty Start Date End Date Debbie Pack DO PCP - General Internal Medicine 07/05/12 Team Status: Active Member Role Status Dates Dr. Debbie Pack DO Family Provider Active Dr. Jean Pearson MD Primary Care Provider Active Team Status: Inactive Member Role Status Dates Dr. Jean Pearson MD Primary Care Pr ovider, Attending Provider, Referring Provider Active Larriman Helper Relationship Specialty Start Date End Date Debbie Pack DO (Fax) PCP - General Internal Medicine 07/05/12 Larriman Helper Relationship Specialty Start Date End Date Debbie Pack DO PCP - General Internal Medicine 07/05/12 Larriman Helper Relationship Specialty Start Date End Date CorbyDebbie carter PCP - General Internal Medicine 07/05/12 Larriman Helper Relationship Specialty Start Date End Date CorbyDebbie carter PCP - General Internal Medicine 07/05/12 Larriman Helper Relationship Specialty Start Date End Date CorbyLuanneDebbieleeanne Aquino PCP - General Internal Medicine 07/05/12 Larriman Helper Relationship Specialty Start Date End Date Debbie Pack DO PCP - General Internal Medicine 07/05/12 Team Status: Active Member Role/Relationship Status Dates Dr. Debbie Pack DO Family Provider Active Dr. Jean Pearson MD Primary Care Provider Active Team Status: Inactive Member Role/Relationship Status Dates Dr. Jean Pearson MD Primary Care Provider Active Start: March 21, 2025 End: March 21, 2025 Dr. Jean Pearson MD Attending Provider Active Start: March 21, 2025 End: March 21, 2025 Dr. Jean Pearson MD Referring Provider Active Start: March 21, 2025 End: March 21, 2025 Goals (unrecognized section and content) Goals may be documented in a n alternate sectionGoals may be documented in an alternate section (unrecognized sect ion and content) No Status Records FoundNo Status Records Found INFORMATION SOURCE (unrecogn ized section and content) DATE CREATED AUTHOR 08/28/2024 [facility] DATE CREATED AUTHOR JEREMIES SHAQUILLE BRITO 03/29/2025 [facility] FOR RECORDS PERTAINING TO PATIENTS WHO [...] BE BASED ON THE PRIMARY CLINICAL RECORDS. [facility] [employer] [facility]. provides no warranty or guarantee of the accuracy or completeness of information in this document.
== END | disposition home or self-care (01) ==
LOC: PSN 10:03
PROVIDERS: PCP Family Medicine; Referring Provider Physician Assistant Surgical; Visit Provider Physician Assistant Surgical
DX: G56.03 Carpal tunnel syndrome, bilateral upper limbs (principal)
CPT/HCPCS: 95886; 95911